=== PATIENT | female | born 1995 | race African-American/Black ===

== ENCOUNTER 2023-05-15 19:39 | Outpatient (REF) | payer OTHER, SELFPAY ==
[2023-05-21 14:09] LABS: Age Gdln ACOG Testing Note (.); IGP, rfx Aptima HPV ASCU Note (.)
== END 2023-05-15 19:40 | disposition home or self-care (01) ==
LOC: LAB 19:39
PROVIDERS: Visit Provider Physician Assistant
DX: Z01.419 Encounter for gynecological examination (general) (routine) without abnormal findings (principal)
CPT/HCPCS: G0145

== ENCOUNTER 2023-09-07 10:13 | Emergency (ER) | payer OTHER, SELFPAY ==
[2023-09-07 10:17] VITALS: BP 133/99; PULSE 104; TEMP 36.8; O2SAT 100; BMI 35.1
--- OUTSIDE RECORDS SUMMARY | 2023-09-07 10:21 | XMS_ITS | CCD ---
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 Name Role Phone Unavailable Primary Care Provider Unavailabl e Abi Gagnon Primary Care Provider Unavailable Primary Care Provider Unavailabl e Unavailable Primary Care Provider Unavailabl e MIHALIK, RENATA Referring Unavailable MIHALIK, RENATA Referring Unavailable MIHALIK, RENATA Attending Unavailable MIHALIK, RENATA Referring Unavailable MIHALIK, RENATA Referring Unavailable MIHALIK, RENATA Attending Unavailable ZUPONCIC, LA Attending Unavailable MIHALIK, RENATA Referring Unavailable MIHALIK, RENATA Attending Unavailable Kristen Simon MD Primary Care Provider [phone] MAISHA HUTCHINSON Referring Unavailable KRISTEN SIMON Primary Care Unavailable JAVY ., DR OBREGON Consulting Unavailable MISC, DR ASHRAF Primary Care Unavailable JAVY ., DR OBREGON Attending Unavailable JAVY ., DR OBREGON Admitting Unavailable ZIEBER, DR RONIT Coreas Consulting Unavailable JAVY ., DR OBREGON Consulting Unavailable MISC, DR ASHRAF Primary Care Unavailable AJVY ., DR OBREGON Attending Unavailable JAVY ., DR OBREGON Admitting Unavailable BERNARDO CASE Consulting Unavailable JAVY ., DR OBREGON Procedure Practitioner Unavail [facility], DR ELMO Pascual Consulting Unavailable MISC, DR ASHRAF Primary Care Unavailable JAVY ., DR OBREGON Attending Unavailable JAVY ., DR OBREGON Admitting Unavailable JAVY ., DR OBREGON Consulting Unavailable KARASIK ., DR LEE Consulting Unavailabl e KARASIK ., DR LEE Attending Unavailabl e KARASIK ., DR LEE Admitting Unavailabl e MISC, DR ASHRAF Primary Care Unavailable JAVY ., DR OBREGON Consulting Unavailable MISC, DR ASHRAF Primary Care Unavailable JAVY ., DR OBREGON Attending Unavailable JAVY ., DR OBREGON Admitting Unavailable JAVY ., DR OBREGON Consulting Unavailable MISC, DR ASHRAF Primary Care Unavailable JAVY ., DR OBREGON Attending Unavailable JAVY ., DR OBREGON Admitting Unavailable SOUTH AMBOY, DR ELMO Pascual Consulting Unavailable MISC, DR ASHRAF Primary Care Unavailable JAVY ., DR OBREGON Attending Unavailable JAVY ., DR OBREGON Admitting Unavailable JAVY ., DR OBREGON Consulting Unavailable JAVY ., DR OBREGON Consulting Unavailable MISC, DR ASHRAF Primary Care Unavailable JAVY ., DR OBREGON Attending Unavailable JAVY ., DR OBREGON Admitting Unavailable JAVY ., DR OBREGON Consulting Unavailable MISC, DR ASHRAF Primary Care Unavailable JAVY ., DR OBREGON Attending Unavailable JAVY ., DR OBREGON Admitting Unavailable JAVY ., DR OBREGON Consulting Unavailable MISC, DR ASHRAF Primary Care Unavailable JAVY ., DR OBREGON Attending Unavailable JAVY ., DR OBREGON Admitting Unavailable JAVY ., DR OBREGON Consulting Unavailable MISC, DR ASHRAF Primary Care Unavailable JAVY ., DR OBREGON Attending Unavailable JAVY ., DR OBREGON Admitting Unavailable JAVY ., DR OBREGON Consulting Unavailable MISC, DR ASHRAF Primary Care Unavailable JAVY ., DR OBREGON Attending Unavailable JAVY ., DR OBREGON Admitting Unavailable JAVY ., DR OBREGON Consulting Unavailable MISC, DR ASHRAF Primary Care Unavailable JAVY ., DR OBREGON Attending Unavailable JAVY ., DR OBREGON Admitting Unavailable KARASIK ., DR LEE Consulting Unavailabl e KARASIK ., DR LEE Attending Unavailabl e KARASIK ., DR LEE Admitting Unavailabl e MISC, DR ASHRAF Primary Care Unavailable KARASIK ., DR LEE Consulting Unavailabl e KARASIK ., DR LEE Attending Unavailabl e KARASIK ., DR LEE Admitting Unavailabl e MISC, DR ASHRAF Primary Care Unavailable JAVY ., DR OBREGON Consulting Unavailable MISC, DR ASHRAF Primary Care Unavailable JAVY ., DR OBREGON Attending Unavailable JAVY ., DR OBREGON Admitting Unavailable MICHAELRANDI Attending Unavailable Medications Current Medications Medication Drug Class(es) Dates Sig (Normalized) Sig (Original) clindamycin 0.01 mg/mg topical gel (1 source) Lincosamide Antibacterial Start: 04-14-2020 End: 04-21-2020 clindamycin (CLEOCIN-T) 1 % gel Indications: Hidradenitis suppurativa of right axilla Apply topically 2 times daily. 1 Bottle 1 04/14/2020 04/21/2020 Active Ethinyl Estradiol / Ferrous fumarate / Norethindrone (5 sources) Estrogen Start: 04-14-2020 take 1 tablet by mouth once daily, then take 0.05-1 tablets by mouth once norethindrone-ethi nyl estradiol (LOESTRIN FE 06/22) 1-20 MG-MCG per tablet Indications: Encounter for initial prescription of contraceptive pills Take 1 tablet by mouth daily 1 packet 12 04/14/2020 Active fluconazole 150 mg oral tablet (1 source) Azole Antifungal Start: 02-05-2020 End: 02-05-2020 take 1 tablet by mouth once fluconazole (DIFLUCAN) 150 MG tablet Take 1 tablet by mouth once for 1 dose 1 tablet 0 02/05/2020 02/05/2020 Active nitrofurantoin, macrocrystals 25 mg / nitrofurantoin, monohydrate 75 mg oral capsule (2 sources) Nitrofuran Antibacterial Start: 02-05-2020 End: 02-15-2020 take 1 capsule by mouth twice daily nitrofurantoin, macrocrystal-monoh ydrate, (MACROBID) 100 MG capsule Take 1 capsule by mouth 2 times daily for 10 days 20 capsule 0 02/05/2020 02/15/2020 Active ondansetron 4 mg oral tablet (3 sources) Serotonin-3 Receptor Antagonist Start: 08-17-2020 take 2 tablets by mouth once daily as needed for nausea ondansetron (ZOFRAN) 4 MG tablet Take 2 tablets by mouth daily as needed for Nausea or Vomiting 12 tablet 0 08/17/2020 Active Start: 08-17-2020 End: 08-17-2020 ondansetron (ZOFRAN) injecti on 4 mg phenazopyridine hydrochloride 100 mg oral tablet (2 sources) Start: 02-05-2020 End: 02-15-2020 take 1 tablet by mouth three times daily as needed for pain phenazopyridine (PYRIDIUM) 100 MG tablet Take 1 tablet by mouth 3 times daily as needed for Pain 30 tablet 0 02/05/2020 02/15/2020 Active Start: 02-05-2020 End: 02-05-2020 phenazopyridine (PYRIDIUM) t ablet 200 mg Vit-Fe Fumarate-FA ( VITAMINS) 28-0.8 MG TABS (2 sources) Start: 06-15-2020 End: 06-10-2021 take 1 tablet by mouth once daily Vit-Fe Fumarate-FA ( VITAMINS) 28-0.8 MG TABS Indications: Encounter for surveillance of contraceptive pills Take 1 tablet by mouth daily SUBSTITUTE GENERIC VITAMIN PER PT'S INSURANCE. 30 tablet 11 06/15/2020 06/10/2021 Active sodium chloride flush 0.9 % injection 3 mL (1 source) Start: 08-17-2020 sodium chlorid e flush 0.9 % injection 3 mL Completed/Discontinued Medications Medication Drug Class(es) Dates Sig (Normalized) Sig (Original) medroxyPROGESTERone acetate 10 mg oral tablet (2 sources) Progestin Start: 02-09-20 22 medroxyPROGESTERone (PROVERA) 10 mg tablet Indications: PCOS (polycystic ovarian syndrome) Take 1 tablet by mouth once daily. For 10 days to induce menses every 3 months 10 tablet 4 02/08/2022 Active Comment on above: Take 1 tablet by pennie th once daily. For 10 days to induce menses every 3 months metroNIDAZOLE 500 mg oral tablet (4 sources) Nitroimidazole Antimicrobial Start: 11-02-19 take 1 tablet by mouth twice daily metroNIDAZOLE (FLAGYL) 500 mg tablet Indications: Vulvar itching Take 1 tablet by mouth twice daily. for vaginosis. Do not drink alcohol while taking this medication 14 tablet 0 11/01/2021 Active Comment on above: Take 1 tablet by pennie th twice daily. for vaginosis. Do not drink alcohol while taking this medication 100 ml potassium chloride 0.1 meq/ml injection (2 sources) Start: 08-18-19 End: 08-18-19 potassium chloride 10 mEq/100 mL IVPB (Peripheral Line) Start: 08-17-2020 End: 08-17-2020 potassium chloride (KLOR-CON M) extended release tablet 40 mEq 50 ml sodium chloride 9 mg/m l injection (1 source) Start: 08-17-2020 End: 08-17-2020 0.9 % sodium chloride bolus Problems Active Problems Problem Classification Problem Date Documented Date Episodic/Chronic Fluid and electrolyte disorders (1 source) Hypokalemia; Translations: [Hypokalemia] Episodic Genitourinary symptoms and ill-defined conditions (1 source) Scalding pain on urination ; Translations: [Burning with urination] Episodic Menstrual disorders (7 sources) Irregular periods; Translations: [Irregular menstruation, unspecified] Onset: 08-10-2021 Chronic Nausea and vomiting (1 source) Nausea and vomiting; Translations: [Nausea and vomiting, intractability of vomiting not specified, unspecified vomiting type] Episodic OB-related trauma to perineum and vulva (1 source) Second degree perineal laceration during delivery; Translations: [SECOND DEG PERINEAL LAC DUR DELIV] Onset: 10-12-2022 Episodic Other complications of ; puerperium affecting management of mother (1 source) Endocrine, nutritional and metabolic diseases complicating childbirth; Translations: [ENDOCRN NUTR MET DZ COMP CHILDBIRTH] Onset: 10-12-2022 Episodic Other complications of (2 sources) Abnormal ultrasonic finding on screening of mother; Translations: [Abnormal ultrasonic finding on screening of mother] Onset: 07-25-2022 Episodic Other complications of (4 sources) Maternal care for other known or suspected poor growth, third trimester, not applicable or unspecified; Translations: [MAT CARE OTH MS FTL GRTH 3RD TM UNS] Onset: 10-02-2022 Episodic Other complications of (4 sources) Endocrine, nutritional and metabolic diseases complicating , third trimester; Translations: [ENDOCRN NUTR MET DZ COMP PG 3RD TRI] Onset: 09-17-2022 Episodic Other endocrine disorders (9 sources) Polycystic ovary syndrome; Translations: [Polycystic ovarian syndrome] Onset: 08-12-2021 Chronic Other endocrine disorders (1 source) Polycystic ovarian syndrome; Translations: [PCOS (polycystic ovarian syndrome)] Onset: 08-13-2021 Chronic Other infections; including parasitic (1 source) Infection by Trichomonas; Translations: [Trichomoniasis, unspecified] Episodic Other infections; including parasitic (1 source) Trichomoniasis, unspecified; Translations: [Trichomoniasis] Onset: 02-08-2022 Episodic Other inflammatory condition of skin (1 source) Pruritus of vulva; Translations: [Pruritus vulvae] Episodic Other and delivery including normal (14 sources) Single live ; Translations: [Encounter for supervision of normal , unspecified, unspecified trimester] Onset: 03-26-2022 Episodic Other screening for suspected conditions (not mental disorders or infectious disease) (6 sources) Encounter for screening for Streptococcus B; Translations: [Encounter for screening, unspecified] Onset: 04-12-2022 Episodic Residual codes; unclassified (1 source) 36 weeks gestation of ; Translations: [36 WEEKS GESTATION OF ] Onset: 10-12-2022 Episodic Residual codes; unclassified (1 source) 35 weeks gestation of ; Translations: [35 WEEKS GESTATION OF ] Onset: 09-27-2022 Episodic Residual codes; unclassified (1 source) 34 weeks gestation of ; Translations: [34 WEEKS GESTATION OF ] Onset: 09-20-2022 Episodic Thyroid disorders (1 source) Hypothyroidism, unspecified; Translations: [HYPOTHYROIDISM UNSPECIFIED] Onset: 10-12-2022 Chronic Urinary tract infections (1 source) Acute cystitis; Translations: [Acute cystitis with hematuria] Episodic Past or Other Problems Problem Classification Problem Date Documented Date Episodic/Chronic Hemorrhage during ; abruptio placenta; placenta previa (4 sources) Partial placenta previa NOS or without hemorrhage, unspecified trimester; Translations: [PART PL PREVIA NOS/WO HEMOR UNS TRI] Onset: 07-03-2022 Episodic Immunizations and screening for infectious disease (2 sources) Contact with and (suspected) exposure to infections with a predominantly sexual mode of transmission; Translations: [Encounter for screening for infections with a predominantly sexual mode of transmission] Onset: 03-09-2022 Episodic Other female genital disorders (4 sources) Other specified noninflammatory disorders of vagina; Translations: [OTH SPEC NONINFLAMMATORY D/O VAGINA] Onset: 03-08-2022 Episodic Other inflammatory condition of skin (1 source) Pruritus vulvae; Translations: [Vulvar itching] Onset: 11-01-2021 Episodic NEGATED: Highlighted row has been ruled out!Unclassified (1 source) No known active problems 10-28-2021 Results Test Name Value Interpretation Reference Range Facil ity CBC AUTO DIFFon 10-04-2022 BASO # 0.0 103/ul Normal 0.0-0.1 [facility] Comment on above: Performed By: #### H EPACUT #### [facility] [address] [place] [address] Dr. Gita Graham Basophils/100 WBC (Bld) 0.1 % Critically low 0.2-2.0 [facility] Comment on above: Performed By: #### H EPACUT #### [facility] [address] [place] [address] Dr. Gita Graham EO # 0.0 103/ul Normal 0.0-0.7 [facility] Comment on above: Performed By: #### H EPACUT #### [facility] [address] [place] [address] Dr. Gita Graham Eosinophils/100 WBC (Bld) 0.1 % Critically low 0.9-7.0 [facility] Comment on above: Performed By: #### H EPACUT #### [facility] [address] [place] [address] Dr. Gita Graham Erythrocyte distribution width (RBC) [Ratio] 13.5 % Normal 11.0-15.0 [facility] Comment on above: Performed By: #### H EPACUT #### [facility] [address] [place] [address] Dr. Gita Graham Hematocrit (Bld) [Volume fraction] 26.3 % Critically low 36.0-48.0 [facility] Comment on above: Performed By: #### H EPACUT #### [facility] [address] [place] [address] Dr. Gita Graham Hemoglobin (Bld) [Mass/Vol] 8.5 g/dL Critically low 12.0-16.0 [facility] Comment on above: Performed By: #### H EPACUT #### [facility] [address] [place] [address] Dr. Gita Graham IG # 0.21 10e3/ul Critically high 0.00-0.03 [facility] Comment on above: Performed By: #### H EPACUT #### [facility] [address] [place] [address] Dr. Gita Graham IG % 1.0 % Critically high 0.0-0.5 [facility] Comment on above: Performed By: #### H EPACUT #### [facility] [address] [address] [address] Gita Graham LYMPH # 1.8 103/ul Normal 1.2-3.8 [facility] Comment on above: Performed By: #### H EPACUT #### [facility] [address] [address] [address] Gita Graham Lymphocytes/100 WBC (Bld) 8.6 % Critically low 20.5-60.0 [facility] Comment on above: Performed By: #### H EPACUT #### [facility] [address] [place] [address] Dr. Gita Graham MANUAL DIFF REQ NO Normal [facility] Comment on above: Performed By: #### H EPACUT #### [facility] [address] [place] [address] Dr. Gita Graham MCH (RBC) [Entitic mass] 26.9 pg Normal 26.7-34.0 [facility] Comment on above: Performed By: #### H EPACUT #### [facility] [address] [place] [address] Dr. Gita Graham MCHC (RBC) [Mass/Vol] 32.3 g/dL Normal 29.9-35.2 [facility] Comment on above: Performed By: #### H EPACUT #### [facility] [address] [place] [address] Dr. Gita Graham MCV (RBC) [Entitic vol] 83.2 fL Normal 81.0-99.0 [facility] Comment on above: Performed By: #### H EPACUT #### [facility] [address] [place] [address] Dr. Gita Graham MONO # 1.5 103/ul Critically high 0.3-0.8 [facility] Comment on above: Performed By: #### H EPACUT #### [facility] [address] [place] [address] Dr. Gita Graham Monocytes/100 WBC (Bld) 7.3 % Normal 1.7-12.0 [facility] Comment on above: Performed By: #### H EPACUT #### [facility] [address] [place] [address] Dr. Gita Graham NEUT # 17.1 103/ul Critically high 1.4-6.5 [facility] Comment on above: Performed By: #### H EPACUT #### [facility] [address] [place] [address] Dr. Gita Graham Neutrophils/100 WBC (Bld) 82.9 % Critically high 43.0-75.0 [facility] Comment on above: Performed By: #### H EPACUT #### [facility] [address] [place] [address] Dr. Gita Graham Platelet mean volume (Bld) [Entitic vol] 11.0 fL Normal 9.5-13.5 [facility] Comment on above: Performed By: #### H EPACUT #### [facility] [address] [place] [address] Dr. Gita Graham PLT 175 103/ul Normal 150-450 [facility] Comment on above: Performed By: #### H EPACUT #### [facility] [address] [place] [address] Dr. Gita Graham RBC 3.16 106/ul Critically low 4.20-5.40 [facility] Comment on above: Performed By: #### H EPACUT #### [facility] [address] [place] [address] Dr. Gita Graham WBC 20.6 103/ul Critically high 4.0-11.0 [facility] Comment on above: Performed By: #### H EPACUT #### [facility] [address] [place] [address] Dr. Gita Graham DRUG SCREEN RAPID (URINE)on 10-03-2022 AMP Negative Normal NEGATIVE [facility] Comment on above: Performed By: #### D RUGRPD #### [facility] [address] [place] [address] Dr. Gita Graham BAR Negative Normal NEGATIVE [facility] Comment on above: Performed By: #### D RUGRPD #### [facility] [address] [place] [address] Dr. Gita Graham BUP Negative Normal NEGATIVE [facility] Comment on above: Performed By: #### D RUGRPD #### [facility] [address] [place] [address] Dr. Gita Graham BZO Negative Normal NEGATIVE [facility] Comment on above: Performed By: #### D RUGRPD #### [facility] [address] [place] [address] Dr. Gita Graham LATHA Negative Normal NEGATIVE [facility] Comment on above: Performed By: #### D RUGRPD #### [facility] [address] [place] [address] Dr. Gita Graham CUT-OFFS SEE BELOW Normal [facility] Comment on above: Result Comment: AMP (Amphetamine): 500ng/mL, BAR (Barbituates): 200 ng/mL, BZO (Benzodiazepines): 150 ng/mL, BUP (Buprenorphine): 10 ng/mL, LATHA (Cocaine): 150 ng/mL, mAMP (Methamphetamine): 500 ng/mL, MTD (Methadone): 200 ng/mL, OPI (Opiates): 100 ng/mL, OXY (Oxycodone): 100 ng/mL, PCP (Phencyclidine): 25 ng/mL, PPX (Propoxyphene): 300 ng/mL, THC (Cannabinoids): 50 ng/mL, TCA (Trycyclic Antidepressants): 300 ng/mL Performed By: #### D RUGRPD #### [facility] [address] [place] [address] Dr. Gita Graham DRUG CUT HEADER DRUG CLASS TEST SYST EM CUT-OFF CONCENTRATIONS ARE FOLLOWS: Normal [facility] Comment on above: Performed By: #### D RUGRPD #### [facility] [address] [place] [address] Dr. Gita Graham mAMP Negative Normal NEGATIVE [facility] Comment on above: Performed By: #### D RUGRPD #### [facility] [address] [place] [address] Dr. Gita Graham MTD Negative Normal NEGATIVE [facility] Comment on above: Performed By: #### D RUGRPD #### [facility] [address] [place] [address] Dr. Gita Graham OPI Negative Normal NEGATIVE [facility] Comment on above: Performed By: #### D RUGRPD #### [facility] [address] [place] [address] Dr. Gita Graham OXY Negative Normal NEGATIVE [facility] Comment on above: Performed By: #### D RUGRPD #### [facility] [address] [place] [address] Dr. Gita Graham PCP Negative Normal NEGATIVE [facility] Comment on above: Performed By: #### D RUGRPD #### [facility] [address] [place] [address] Dr. Gita Graham PPX Negative Normal NEGATIVE [facility] Comment on above: Performed By: #### D RUGRPD #### [facility] [address] [place] [address] Dr. Gita Graham TCA Negative Normal NEGATIVE [facility] Comment on above: Performed By: #### D RUGRPD #### [facility] [address] [place] [address] Dr. Gita Graham THC Negative Normal NEGATIVE [facility] Comment on above: Performed By: #### D RUGRPD #### [facility] [address] [place] [address] Dr. Gita Graham CBC AUTO DIFFon 10-02-2022 BASO # 0.0 103/ul Normal 0.0-0.1 [facility] Comment on above: Performed By: #### C BC #### [facility] [address] [place] [address] Dr. Gita Graham Basophils/100 WBC (Bld) 0.2 % Normal 0.2-2.0 [facility] Comment on above: Performed By: #### C BC #### [facility] [address] [place] [address] Dr. Gita Graham EO # 0.1 103/ul Normal 0.0-0.7 [facility] Comment on above: Performed By: #### C BC #### [facility] [address] [address] [address] Gita Graham Eosinophils/100 WBC (Bld) 1.2 % Normal 0.9-7.0 [facility] Comment on above: Performed By: #### C BC #### [facility] [address] [place] [address] Dr. Gita Graham Erythrocyte distribution width (RBC) [Ratio] 13.5 % Normal 11.0-15.0 [facility] Comment on above: Performed By: #### C BC #### [facility] [address] [place] [address] Dr. Gita Graham Hematocrit (Bld) [Volume fraction] 30.2 % Critically low 36.0-48.0 [facility] Comment on above: Performed By: #### C BC #### [facility] [address] [place] [address] Dr. Gita Graham Hemoglobin (Bld) [Mass/Vol] 9.7 g/dL Critically low 12.0-16.0 [facility] Comment on above: Performed By: #### C BC #### [facility] [address] [place] [address] Dr. Gita Graham IG # 0.19 10e3/ul Critically high 0.00-0.03 [facility] Comment on above: Performed By: #### C BC #### [facility] [address] [place] [address] Dr. Gita Graham IG % 1.8 % Critically high 0.0-0.5 [facility] Comment on above: Performed By: #### C BC #### [facility] [address] [place] [address] Dr. Gita Graham LYMPH # 1.5 103/ul Normal 1.2-3.8 [facility] Comment on above: Performed By: #### C BC #### [facility] [address] [place] [address] Dr. Gita Graham Lymphocytes/100 WBC (Bld) 13.5 % Critically low 20.5-60.0 [facility] Comment on above: Performed By: #### C BC #### [facility] [address] [place] [address] Dr. Gita Graham MANUAL DIFF REQ NO Normal [facility] Comment on above: Performed By: #### C BC #### [facility] [address] [place] [address] Dr. Gita Graham MCH (RBC) [Entitic mass] 26.6 pg Critically low 26.7-34.0 [facility] Comment on above: Performed By: #### C BC #### [facility] [address] [place] [address] Dr. Gita Graham MCHC (RBC) [Mass/Vol] 32.1 g/dL Normal 29.9-35.2 [facility] Comment on above: Performed By: #### C BC #### [facility] [address] [place] [address] Dr. Gita Graham MCV (RBC) [Entitic vol] 82.7 fL Normal 81.0-99.0 [facility] Comment on above: Performed By: #### C BC #### [facility] [address] [place] [address] Dr. Gita Graham MONO # 0.8 103/ul Normal 0.3-0.8 [facility] Comment on above: Performed By: #### C BC #### [facility] [address] [place] [address] Dr. Gita Graham Monocytes/100 WBC (Bld) 7.3 % Normal 1.7-12.0 [facility] Comment on above: Performed By: #### C BC #### [facility] [address] [place] [address] Dr. Gita Graham NEUT # 8.2 103/ul Critically high 1.4-6.5 [facility] Comment on above: Performed By: #### C BC #### [facility] [address] [place] [address] Dr. Gita Graham Neutrophils/100 WBC (Bld) 76.0 % Critically high 43.0-75.0 [facility] Comment on above: Performed By: #### C BC #### [facility] [address] [place] [address] Dr. Gita Graham Platelet mean volume (Bld) [Entitic vol] 10.7 fL Normal 9.5-13.5 [facility] Comment on above: Performed By: #### C BC #### [facility] [address] [place] [address] Dr. Gita Graham PLT 194 103/ul Normal 150-450 [facility] Comment on above: Performed By: #### C BC #### [facility] [address] [address] [address] Gita Graham RBC 3.65 106/ul Critically low 4.20-5.40 [facility] Comment on above: Performed By: #### C BC #### [facility] [address] [place] [address] Dr. Gita Graham WBC 10.8 103/ul Normal 4.0-11.0 [facility] Comment on above: Performed By: #### C BC #### [facility] [address] [place] [address] Dr. Gita Graham TYPE AND SCREENon 10-02-2022 TYPE AND SCREEN Negative Normal [facility] Comment on above: Performed By: #### T NS #### [facility] [address] [place] [address] Dr. Gita Graham GROUP B STREP CULTUREon 09-02 S. agalactiae Ag Ql (Unsp spec) Culture Observations: NEGATIVE FOR GROUP B STREPTOCOCCUS. Normal [facility] Comment on above: Performed By: #### H EPACUT #### [facility] [address] [place] [address] Dr. Gita Graham Coxsackie A9 Titeron 023 Coxsackie A9 Titer 1:8 Normal <1:8 [facility] Comment on above: Result Comment: (NOT E) INTERPRETIVE INFORMATION: Coxsackie A Serotype 9 Titer Single positive antibody titers of greater than 1:32 may indicate past or current infection. Seroconversion or an increase in titers between acute and convalescent sera of at least fourfold is considered strong evidence of current or recent infection. Performed By: [facility] [employer] [address] [place] [id number] Shop Tech: Johan Chen MD, PhD Performed By: #### A COXA9, APARVP #### [facility] [address] [place] [address] Ichthyology Teacher: Hussain Storey MD #### TOXOM, CMVM, TOXOG, CMVG #### [address] [id number] Ichthyology Teacher: Efrain Ramirez MD Parvovirus B19 Panelon 07-28 Parvovirus IgG B19 0.49 IV Normal <=0.90 [facility] Comment on above: Result Comment: (NOT E) INTERPRETIVE INFORMATION: Parvovirus B19 Antibody, IgG 0.90 IV or less .......... Negative - No significant level of detectable Parvovirus B19 IgG antibody. 0.91 - 1.09 IV ........... Equivocal - Repeat testing in 7-21 days may be helpful. 1.10 IV or greater ....... Positive - IgG antibody to Parvovirus B19 detected which may indicate a current or past infection. The best evidence for current infection is a significant change on two appropriately timed specimens, where both tests are done in the same laboratory at the same time. Performed By: #### A COXA9, APARVP #### [address] [address] Ichthyology Teacher: Hussain Storey MD #### TOXOM, CMVM, TOXOG, CMVG #### [address] [id number] Ichthyology Teacher: Efrain Ramirez MD Parvovirus IgM B19 0.18 IV Normal <=0.90 [facility] Comment on above: Result Comment: (NOT E) INTERPRETIVE INFORMATION: Parvovirus B19 Antibody, IgM 0.90 IV or less .......... Negative - No significant level of detectable Parvovirus B19 IgM antibody. 0.91 - 1.09 IV ........... Equivocal - Repeat testing in 7-21 days may be helpful. 1.10 IV or greater ........ Positive - IgM antibody to Parvovirus B19 detected which may indicate a current or recent infection. However, low levels of IgM antibodies may occasionally persist for more than 12 months post-infection. The best evidence for current infection is a significant change on two appropriately timed specimens, where both tests are done in the same laboratory at the same time. Appearance of an IgM antibody response normally occurs 7 to 14 days after the onset of disease. Testing immediately post-exposure is of no value without a later convalescent specimen. A residual IgM response may be distinguished from early IgM response to infection by testing sera from patients three to four weeks later for changing levels of specific IgM antibodies. Performed By: [facility] [address] [place], [place] [id number] Shop Tech: Johan Chen MD, PhD Performed By: #### A FRANCIA APARVP #### [facility] [employer] [address] [place] [address] Ichthyology Teacher: Hussain Storey MD #### TOXOM, CMVM, TOXOG, CMVG #### [facility] [place] [address] Ichthyology Teacher: Efrain Ramirez MD CMV Ab,IgMon 07-27-2022 CMV Ab,IgM 0.2 Normal <0.9 [facility] Comment on above: Result Comment: Reference Range: <0.9 Non Reactive 0.9 to 1.0 Indeterminate >1.0 Reactive The absence of CMV antibodies suggests that the patient has not been exposed to the virus and is susceptible to primary infection. The presence of CMV IgM antibodies is indicative of recent exposure to the virus. These results are not intended to replace virus isolation and should be interpreted within the context of clinical and other findings. Performed By: #### A COXA9, APARVP #### [facility] [employer] [address] [place] [id number] Ichthyology Teacher: Hussain Storey MD #### TOXOM, CMVM, TOXOG, CMVG #### [id number] [place] [address] Ichthyology Teacher: Efrain Ramirez MD CMV Ab,IgGon 07-26-2022 CMV Ab,IgG 4.3 High <0.9 [facility] Comment on above: Result Comment: Reference Range: <0.9 Non Reactive 0.9 to 1.0 Indeterminate >1.0 Reactive The absence of CMV antibodies suggests that the patient has not been exposed to the virus and is susceptible to primary infection. The presence of CMV IgG antibodies is indicative of previous exposure to the virus, but cannot distinguish between active or past infection. Patients suspected of having primary or active infection should be tested for the concurrent presence of CMV IgM antibodies and/or retested for seroconversion in 3 to 4 weeks. These results are not intended to replace virus isolation and should be interpreted within the context of clinical and other findings. Performed By: #### A FRANCIA APARVP #### [facility] [address] [place], [place] [id number] Ichthyology Teacher: Hussain Storey MD #### TOXOM, CMVM, TOXOG, CMVG #### [address] [address] Ichthyology Teacher: Efrain Ramirez MD Toxoplasma Ab,IgGon 07-26-19 Toxoplasma Ab,IgG <0.5 Normal [facility] Comment on above: Result Comment: REFERENCE RANGE: <6.3 NON-REACTIVE 6.4 TO 9.9 EQUIVOCAL >=10.0 REACTIVE THE PRESENCE OF TOXOPLASMA GONDII IgG ANTIBODIES IS INDICATIVE OF EXPOSURE TO THE PROTOZOAN. THE ABSENCE OF TOXOPLASMA IgG ANTIBODIES SUGGESTS THAT THE PATIENT HAS NOT BEEN EXPOSED TO THIS ORGANISM AND IS SUSCEPTIBLE TO PRIMARY INFECTION. DETERMINATION OF PRIMARY OR RECENT INFECTION REQUIRES DEMONSTRATING SEROCONVERSION BETWEEN ACUTE AND CONVALESCENT SERA. Performed By: #### A COXA9, APARVP #### [facility] [address] [place] [address] Ichthyology Teacher: Hussain Storey MD #### TOXOM, CMVM, TOXOG, CMVG #### [address] [address] Ichthyology Teacher: Efrain Ramirez MD Toxoplasma Ab,IgMon 07-26-19 Toxoplasma Ab,IgM 0.58 Index Normal [facility] Comment on above: Result Comment: REFERENCE RANGE: <0.90 NON-REACTIVE 0.90 TO 0.99 INDETERMINANT >=1.00 REACTIVE Performed By: #### A COXA9, APARVP #### [facility] [address] [place] [address] Ichthyology Teacher: Hussain Storey MD #### TOXOM, CMVM, TOXOG, CMVG #### [id number] [place] [address] Ichthyology Teacher: Efrain Ramirez MD CBC AUTO DIFFon 07-21-2022 BASO # 0.0 103/ul Normal 0.0-0.1 [facility] Comment on above: Performed By: #### H CVPCRR #### [facility] [address] [place] [address] Dr. Gita Graham Basophils/100 WBC (Bld) 0.4 % Normal 0.2-2.0 [facility] Comment on above: Performed By: #### H CVPCRR #### [facility] [address] [place] [address] Dr. Gita Graham EO # 0.1 103/ul Normal 0.0-0.7 [facility] Comment on above: Performed By: #### H CVPCRR #### [facility] [address] [place] [address] Dr. Gita Graham Eosinophils/100 WBC (Bld) 0.8 % Critically low 0.9-7.0 [facility] Comment on above: Performed By: #### H CVPCRR #### [facility] [address] [place] [address] Dr. Gita Graham Erythrocyte distribution width (RBC) [Ratio] 13.6 % Normal 11.0-15.0 [facility] Comment on above: Performed By: #### H CVPCRR #### [facility] [address] [place] [address] Dr. Gita Graham Hematocrit (Bld) [Volume fraction] 32.4 % Critically low 36.0-48.0 [facility] Comment on above: Performed By: #### H CVPCRR #### [facility] [address] [place] [address] Dr. Gita Graham Hemoglobin (Bld) [Mass/Vol] 10.7 g/dL Critically low 12.0-16.0 [facility] Comment on above: Performed By: #### H CVPCRR #### [facility] [address] [place] [address] Dr. Gita Graham IG # 0.09 10e3/ul Critically high 0.00-0.03 [facility] Comment on above: Performed By: #### H CVPCRR #### [facility] [address] [place] [address] Dr. Gita Graham IG % 0.8 % Critically high 0.0-0.5 [facility] Comment on above: Performed By: #### H CVPCRR #### [facility] [address] [place] [address] Dr. Gita Graham LYMPH # 1.4 103/ul Normal 1.2-3.8 [facility] Comment on above: Performed By: #### H CVPCRR #### [facility] [address] [place] [address] Dr. Gita Graham Lymphocytes/100 WBC (Bld) 12.9 % Critically low 20.5-60.0 [facility] Comment on above: Performed By: #### H CVPCRR #### [facility] [address] [place] [address] Dr. Gita Graham MANUAL DIFF REQ NO Normal [facility] Comment on above: Performed By: #### H CVPCRR #### [facility] [address] [place] [address] Dr. Gita Graham MCH (RBC) [Entitic mass] 28.0 pg Normal 26.7-34.0 [facility] Comment on above: Performed By: #### H CVPCRR #### [facility] [address] [address] [address] Gita Graham MCHC (RBC) [Mass/Vol] 33.0 g/dL Normal 29.9-35.2 [facility] Comment on above: Performed By: #### H CVPCRR #### [facility] [address] [place] [address] Dr. Gita Graham MCV (RBC) [Entitic vol] 84.8 fL Normal 81.0-99.0 [facility] Comment on above: Performed By: #### H CVPCRR #### [facility] [address] [place] [address] Dr. Gita Graham MONO # 0.7 103/ul Normal 0.3-0.8 [facility] Comment on above: Performed By: #### H CVPCRR #### [facility] [address] [place] [address] Dr. Gita Graham Monocytes/100 WBC (Bld) 6.0 % Normal 1.7-12.0 [facility] Comment on above: Performed By: #### H CVPCRR #### [facility] [address] [place] [address] Dr. Gita Graham NEUT # 8.5 103/ul Critically high 1.4-6.5 [facility] Comment on above: Performed By: #### H CVPCRR #### [facility] [address] [place] [address] Dr. Gita Graham Neutrophils/100 WBC (Bld) 79.1 % Critically high 43.0-75.0 [facility] Comment on above: Performed By: #### H CVPCRR #### [facility] [address] [place] [address] Dr. Gita Graham Platelet mean volume (Bld) [Entitic vol] 10.3 fL Normal 9.5-13.5 [facility] Comment on above: Performed By: #### H CVPCRR #### [facility] [address] [place] [address] Dr. Gita Graham PLT 210 103/ul Normal 150-450 [facility] Comment on above: Performed By: #### H CVPCRR #### [facility] [address] [address] [address] Gita Graham RBC 3.82 106/ul Critically low 4.20-5.40 [facility] Comment on above: Performed By: #### H CVPCRR #### [facility] [address] [address] [address] Gita Graham WBC 10.8 103/ul Normal 4.0-11.0 [facility] Comment on above: Performed By: #### H CVPCRR #### [facility] [address] [address] [address] Gita Graham GLUCOSE - 1HRon 07-21-2022 Glucose [Mass/Vol] 114 mg/dL Critically high 74-106 T [facility] Comment on above: Performed By: #### H CVPCRR #### [facility] [address] [place] [address] Dr. Gita Graham US PREG PLACENTAon US PREG PLACENTA EXAMINATION: US PREG PLACENTA HISTORY: Placenta previa partialis COMPARISON: 06/05/2022 FINDINGS: position: Cephalic presentation, longitudinal lie Placenta: Anterior. No intraplacental or retroplacental echogenic abnormality. The placental edge is 4.6 cm from the internal os Heart rate: 142 bpm Cervix: 4.8 cm, closed IMPRESSION: Placental edge 4.6 cm from the internal os. Electronically authenticated by: ELMO GOETZ Date: 2022-07-03 11:05 Normal [facility] US PREG ANATOMY SINGLEon US PREG ANATOMY SINGLE EXAMINATION: US PREG ANATOMY SINGLE HISTORY: anatomy study COMPARISON: No relevant comparison available. TECHNIQUE: Transabdominal sonographic examination was performed for obstetrical and evaluation. FINDINGS: Number: 1 Heart Rate: 144.0 bpm H.B. /min Amniotic Fluid Volume: Subjectively normal Placental Location: POSTERIOR with lower margin 0.4 cm from os. Cervix Length: 4.2 cm , closed. ANATOMY: Normal Structures -cerebellum, choroid plexus, cisterna magna, lateral cerebral ventricles, orbits, midline falx, hard palate, four-chamber heart, RVOT, LVOT, stomach, kidneys, bladder, umbilical cord insertion into abdomen, three-vessel cord, cervical spine, thoracic spine, lumbar spine, sacral spine, right upper extremity, left upper extremity, right lower extremity, left lower extremity. SUBOPTIMALLY SEEN: None ABNORMALITIES: None BIOMETRY: BPD: 4.4 cm 19 weeks 3 days HC: 16.3 cm 19 weeks 0 days AC: 14.6 cm 19 weeks 6 days FL: 3.3 cm 20 weeks 3 days EFW:325.4 grams; 53% FL/AC: 22.8 FL/BPD: 74.9 HC/AC: 1.1 GESTATIONAL AGE: Age by EDC: 19 weeks 6 days SUJEY by EDC: 10/24/2022 Age by current US: 19 weeks 5 days SUJEY by current US: 10/25/2022 IMPRESSION: 1. Single live intrauterine with growth detailed above. 2. Posterior low-lying placenta. Electronically authenticated by: RONIT MILLER Date: 2022-06-05 16:18 Normal [facility] AFP MATERNAL FOR SPINA BIFID Aon 05-31-2022 AFP MoM 1.10 Normal [facility] Comment on above: Performed By: #### A FPMAT #### [facility] [address] [address] [address] Gita Graham AFP Value 49.6 ng/mL Normal [facility] Comment on above: Performed By: #### A FPMAT #### [facility] [address] [address] [address] Gita Graham AFP, Serum for Spina Bifida Report Normal [facility] Comment on above: Performed By: #### A FPMAT #### [facility] [address] [address] [address] Gita Graham Comment Comment Normal [facility] Comment on above: Result Comment: Paul Shook, Ph.D., [facility] Director . References: Available Upon Request. . Multiples Of Median Cutoffs For AFP Elevations Steen 2.5 Black 2.8 IDD 2.0 Twins 4.5 Abbreviation Definitions IDD - Insulin Dep Diabetes OSBR - Open Spina Bifida Risk . For further inquiries contact [employer] at [phone]. . This test was developed and its performance characteristics determined by [employer]. It has not been cleared or approved by the Food and Drug Administration. Performed By: #### A FPMAT #### [facility] [address] [address] [address] Gita Graham Gest Age Collection Date 18.7 weeks Normal [facility] Comment on above: Performed By: #### A FPMAT #### [facility] [address] [place] [address] Dr. Gita Graham Gestat, Age Based on SUJEY Normal [facility] Comment on above: Result Comment: 10/02 Recalculations are not recommended when gestational dating by LMP and ultrasound are within 10 days. Performed By: #### A FPMAT #### [facility] [address] [place] [address] Dr. Gita Graham Insulin Dep Diabetes No Normal [facility] Comment on above: Performed By: #### A FPMAT #### [facility] [address] [place] [address] Dr. Gita Graham Interpretation Comment Normal [facility] Comment on above: Result Comment: Inte rpretation: Screen Negative . This result is screen negative for OSB. The AFP MoM calculated is based on the gestational age provided. MS-AFP can identify up to 80% of open neural tube defects. Closed neural tube defects and some open defects may not be detected by this test. This test does not screen for Down Syndrome or Trisomy 18. If screening for Down Syndrome or Trisomy 18 is desired, contact [employer] to discuss available options. The [place] [employer] recommends amniocentesis be offered to women age 35 and older. Performed By: #### A FPMAT #### [facility] [address] [place] [address] Dr. Gita Graham [age] Normal [facility] Comment on above: Performed By: #### A FPMAT #### [facility] [address] [place] [address] Dr. Gita Graham Multiple Gestation No Normal [facility] Comment on above: Performed By: #### A FPMAT #### [facility] [address] [place] [address] Dr. Gita Graham OSBR Risk 1 [place] 8933 Normal [facility] Comment on above: Performed By: #### A FPMAT #### [facility] [address] [place] [address] Dr. Gita Graham PDF . Normal [facility] Comment on above: Performed By: #### A FPMAT #### [facility] [address] [place] [address] Dr. Gita Graham Race Normal [facility] Comment on above: Performed By: #### A FPMAT #### [facility] [address] [place] [address] Dr. Gita Graham Test Results: Negative [facility] Comment on above: Performed By: #### A FPMAT #### [facility] [address] [place] [address] Dr. Gita Graham HEP B SURFACE ANTIGEN SCREEN on 04-08-2022 HBsAg Screen Negative Normal Negative [facility] Comment on above: Performed By: #### H CVPCRR #### [facility] [address] [place] [address] Dr. Gita Graham HEPATITIS C VIRUS AB W/ REFL EX QUANTon 04-08-2022 HCV AB <0.1 Normal 0.0-0.9 [facility] Comment on above: Performed By: #### H CVPCRR #### [facility] [address] [place] [address] Dr. Gita Graham Interpretation: Comment Normal [facility] Comment on above: Result Comment: Nega tive Not infected with HCV, unless recent infection is suspected or other evidence exists to indicate HCV infection. Performed By: #### H CVPCRR #### [facility] [address] [place] [address] Dr. Gita Graham HIV 1 AND 2 WITH REFLEXon HIV Screen 4th Generation wRfx Non-Reactive Normal Non Reactive [facility] Comment on above: Result Comment: HIV Negative HIV-1/HIV-2 antibodies and HIV-1 p24 antigen were NOT detected. There is no laboratory evidence of HIV infection. Performed By: #### H EPACUT #### [facility] [address] [place] [address] Dr. Gita Graham RPR QUANTon 04-08-2022 Rapid Plasma Reagin, Quant Non-Reactive Normal NonRea<1:1 [facility] Comment on above: Result Comment: Jill bran Note: This test does not meet current guidelines for screening and diagnosis of syphilis. This test is intended for following treatment response in patients being treated for syphilis infection. To screen for syphilis infection, a reflex cascade that includes both RPR and a treponema-specific assay should be utilized, such as Treponema pallidum (Syphilis) Screening [place] (919609) or Rapid Plasma Reagin (RPR) Test With Reflex to Quantitative RPR and Confirmatory Treponema pallidum Antibodies (060775). Performed By: #### H CVPCRR #### [facility] [address] [place] [address] Dr. Gita Graham RUBELLA AB IGGon 04-08-2022 Rubella Antibodies, IgG 4.62 index Normal Immune >0.99 [facility] Comment on above: Result Comment: Non- immune <0.90 Equivocal 0.90 - 0.99 Immune >0.99 Performed By: #### H EPACUT #### [facility] [address] [place] [address] Dr. Gita Graham CBC AUTO DIFFon 04-07-2022 BASO # 0.0 103/ul Normal 0.0-0.1 [facility] Comment on above: Performed By: #### H CVPCRR #### [facility] [address] [place] [address] Dr. Gita Graham Basophils/100 WBC (Bld) 0.4 % Normal 0.2-2.0 [facility] Comment on above: Performed By: #### H CVPCRR #### [facility] [facility] [address] [place] [address] Dr. Gita Graham EO # 0.0 103/ul Normal 0.0-0.7 [facility] Comment on above: Performed By: #### H CVPCRR #### [facility] [address] [place] [address] Dr. Gita Graham Eosinophils/100 WBC (Bld) 0.8 % Critically low 0.9-7.0 [facility] Comment on above: Performed By: #### H CVPCRR #### [facility] [address] [place] [address] Dr. Gita Graham Erythrocyte distribution width (RBC) [Ratio] 13.0 % Normal 11.0-15.0 [facility] Comment on above: Performed By: #### H CVPCRR #### [facility] [address] [place] [address] Dr. Gita Graham Hematocrit (Bld) [Volume fraction] 39.1 % Normal 36.0-48.0 [facility] Comment on above: Performed By: #### H CVPCRR #### [facility] [address] [place] [address] Dr. Gita Graham Hemoglobin (Bld) [Mass/Vol] 13.1 g/dL Normal 12.0-16.0 [facility] Comment on above: Performed By: #### H CVPCRR #### [facility] [address] [place] [address] Dr. Gita Graham IG # 0.01 10e3/ul Normal 0.00-0.03 [facility] Comment on above: Performed By: #### H CVPCRR #### [facility] [address] [place] [address] Dr. Gita Graham IG % 0.2 % Normal 0.0-0.5 [facility] Comment on above: Performed By: #### H CVPCRR #### [facility] [address] [place] [address] Dr. Gita Graham LYMPH # 1.3 103/ul Normal 1.2-3.8 [facility] Comment on above: Performed By: #### H CVPCRR #### [facility] [address] [place] [address] Dr. Gita Graham Lymphocytes/100 WBC (Bld) 25.0 % Normal 20.5-60.0 [facility] Comment on above: Performed By: #### H CVPCRR #### [facility] [address] [place] [address] Dr. Gita Graham MANUAL DIFF REQ NO Normal [facility] Comment on above: Performed By: #### H CVPCRR #### [facility] [address] [place] [address] Dr. Gita Graham MCH (RBC) [Entitic mass] 27.6 pg Normal 26.7-34.0 [facility] Comment on above: Performed By: #### H CVPCRR #### [facility] [address] [place] [address] Dr. Gita Graham MCHC (RBC) [Mass/Vol] 33.5 g/dL Normal 29.9-35.2 [facility] Comment on above: Performed By: #### H CVPCRR #### [facility] [address] [place] [address] Dr. Gita Graham MCV (RBC) [Entitic vol] 82.5 fL Normal 81.0-99.0 [facility] Comment on above: Performed By: #### H CVPCRR #### [facility] [address] [place] [address] Dr. Gita Graham MONO # 0.2 103/ul Critically low 0.3-0.8 [facility] Comment on above: Performed By: #### H CVPCRR #### [facility] [address] [place] [address] Dr. Gita Graham Monocytes/100 WBC (Bld) 3.7 % Normal 1.7-12.0 [facility] Comment on above: Performed By: #### H CVPCRR #### [facility] [address] [place] [address] Dr. Gita Graham NEUT # 3.6 103/ul Normal 1.4-6.5 [facility] Comment on above: Performed By: #### H CVPCRR #### [facility] [address] [place] [address] Dr. Gita Graham Neutrophils/100 WBC (Bld) 69.9 % Normal 43.0-75.0 [facility] Comment on above: Performed By: #### H CVPCRR #### [facility] [address] [address] [address] Gita Graham Platelet mean volume (Bld) [Entitic vol] 10.4 fL Normal 9.5-13.5 [facility] Comment on above: Performed By: #### H CVPCRR #### [facility] [address] [place] [address] Dr. Gita Graham PLT 211 103/ul Normal 150-450 [facility] Comment on above: Performed By: #### H CVPCRR #### [facility] [address] [address] [address] Gita Graham RBC 4.74 106/ul Normal 4.20-5.40 [facility] Comment on above: Performed By: #### H CVPCRR #### [facility] [address] [place] [address] Dr. Gita Graham WBC 5.2 103/ul Normal 4.0-11.0 [facility] Comment on above: Performed By: #### H CVPCRR #### [facility] [address] [place] [address] Dr. Gita Graham CULTURE URINEon 04-07-2022 CULTURE URINE Culture Observations : NO GROWTH. Normal [facility] Comment on above: Performed By: #### U RCX #### [facility] [address] [place] [address] Dr. Gita Graham GLYCOHEMOGLOBIN A1Con 2021 ADA RECOMMENDATION SEE BELOW Normal [facility] Comment on above: Result Comment: ADA RECOMMENDED LIMIT 4.0 - 6.0 ADA THERAPEUTIC TARGET < 7.0 ACTION SUGGESTED > 7.0 Performed By: #### H CVPCRR #### [facility] [address] [place] [address] Dr. Gita Graham Glucose [Mass/Vol] 105 mg/dL Normal [facility] Comment on above: Performed By: #### H CVPCRR #### [facility] [address] [place] [address] Dr. Gita Graham HbA1c (Bld) [Mass fraction] 5.3 % Normal 4.5-6.2 [facility] Comment on above: Performed By: #### H CVPCRR #### [facility] [address] [place] [address] Dr. Gita Graham KAILASH BOX TEST PT SEND OUTo n 04-07-2022 SENT TO REF LAB 04/07/2022 Normal [facility] Comment on above: Performed By: #### H CVPCRR #### [facility] [address] [place] [address] Dr. Gita Graham TYPE AND SCREENon 04-07-2022 TYPE AND SCREEN Negative Normal [facility] Comment on above: Performed By: #### H EPACUT #### [facility] [address] [place] [address] Dr. Gita Graham US PREG TVon 03-22-2022 US PREG TV EXAMINATION: US PREG TV HISTORY: Irregular periods COMPARISON: No relevant comparison available. FINDINGS: Steen intrauterine gestation Gestational sac: 3.3 cm, 8 weeks 2 days CRL: 2.0 cm, 8 weeks 4 days Yolk sac: 3.7 mm Heart rate: 175 bpm Cervix: Closed, 4.1 cm Uterus is normal in appearance, anteverted The ovaries are normal in appearance. Clinical age: 9 weeks 1 day Clinical SUJEY: 10/24/2022 Ultrasound age: 8 weeks 3 days Ultrasound SUJEY: 10/29/2022 IMPRESSION: Viable steen intrauterine gestation measuring 8 weeks 3 days Electronically authenticated by: ELMO GOETZ Date: 2022-03-22 16:47 Normal [facility] CHLAMYDIA/GONOCOCCUS PADMINI (SW AB/URINE/PAPon 03-12-2022 Chlamydia trachomatis, PADMINI Negative Normal Negative [facility] Comment on above: Performed By: #### C T/NGNA #### [facility] [address] [place] [address] Dr. Gita Graham Neisseria gonorrhoeae, PADMINI Negative Normal Negative [facility] Comment on above: Performed By: #### C T/NGNA #### [facility] [address] [place] [address] Dr. Gita Graham VAGINITIS/VAGINOSIS DNA PROB Isaias 03-11-2022 Crystal species Negative Normal Negative [facility] Comment on above: Performed By: #### H CVPCRR #### [facility] [address] [place] [address] Dr. Gita Graham Gardnerella vaginalis Positive Abnormal Negative [facility] Comment on above: Performed By: #### H CVPCRR #### [facility] [address] [place] [address] Dr. Gita Graham Trichomonas vaginalis Negative Normal Negative [facility] Comment on above: Performed By: #### H CVPCRR #### [facility] [address] [place] [address] Dr. Gita Graham HEPATITIS PANEL, ACUTEon HBsAg Screen Negative Normal Negative [facility] Comment on above: Performed By: #### H EPACUT #### [facility] [address] [place] [address] Dr. Gita Graham HCV AB <0.1 Normal 0.0-0.9 [facility] Comment on above: Performed By: #### H EPACUT #### [facility] [address] [place] [address] Dr. Gita Graham Hep A Ab, IgM Negative Normal Negative [facility] Comment on above: Performed By: #### H EPACUT #### [facility] [address] [place] [address] Dr. Gita Graham Hep B Core Ab, IgM Negative Normal Negative [facility] Comment on above: Performed By: #### H EPACUT #### [facility] [address] [place] [address] Dr. Giat Graham Interpretation: Comment Normal [facility] Comment on above: Result Comment: Nega tive Not infected with HCV, unless recent infection is suspected or other evidence exists to indicate HCV infection. Performed By: #### H EPACUT #### [facility] [address] [place] [address] Dr. Gita Graham HERPES SIMPLEX 1/2 IGGon HSV 1 IgG, Type Spec <0.91 Normal 0.00-0.90 [facility] Comment on above: Result Comment: Nega tive <0.91 Equivocal 0.91 - 1.09 Positive >1.09 Note: Negative indicates no antibodies detected to HSV-1. Equivocal may suggest early infection. If clinically appropriate, retest at later date. Positive indicates antibodies detected to HSV-1. Performed By: #### H SV IGG #### [facility] [address] [place] [address] Dr. Gita Graham HSV 2 IgG Type Spec 8.69 index Critically high 0.00-0.90 [facility] Comment on above: Result Comment: Nega tive <0.91 Equivocal 0.91 - 1.09 Positive >1.09 Note: Negative indicates no HSV-2 antibodies detected. Positive indicates HSV-2 antibodies detected. Equivocal and low positive HSV-2 screens (Index 0.91-5.00) may be false positive and are reflexed to supplemental testing in accordance with CDC guidelines. Performed By: #### H SV IGG #### [facility] [address] [place] [address] Dr. Gita Graham HIV 1 AND 2 WITH REFLEXon HIV Screen 4th Generation wRfx Non-Reactive Normal Non Reactive [facility] Comment on above: Result Comment: HIV Negative HIV-1/HIV-2 antibodies and HIV-1 p24 antigen were NOT detected. There is no laboratory evidence of HIV infection. Performed By: #### H IV12 #### [facility] [address] [place] [address] Dr. Gita Graham RPR QUANTon 03-09-2022 Rapid Plasma Reagin, Quant Non-Reactive Normal NonRea<1:1 [facility] Comment on above: Result Comment: Plea se Note: This test does not meet current guidelines for screening and diagnosis of syphilis. This test is intended for following treatment response in patients being treated for syphilis infection. To screen for syphilis infection, a reflex cascade that includes both RPR and a treponema-specific assay should be utilized, such as Treponema pallidum (Syphilis) Screening [place] (350952) or Rapid Plasma Reagin (RPR) Test With Reflex to Quantitative RPR and Confirmatory Treponema pallidum Antibodies (348119). Performed By: #### H EPACUT #### [facility] [address] [place] [address] Dr. Gita Graham PREG QUANT HCGon 03-08-2022 HCG QUANT 15925 mIU/mL Normal [facility] Comment on above: Performed By: #### H EPACUT #### [facility] [address] [address] [address] Gita Graham HCG RANGE SEE BELOW Normal [facility] Comment on above: Result Comment: 5-50 0.2-1 WEEK 50-500 1-2 WEEKS 100-5,000 2-3 WEEKS 500-10,000 3-4 WEEKS 1,000-50,000 4-5 WEEKS 10,000-100,000 5-6 WEEKS 15,000-200,000 6-8 WEEKS 10,000-100,000 2-3 MONTHS Performed By: #### H EPACUT #### [facility] [address] [place] [address] Dr. Gita Graham B-HCG SerPl-[facility] [place] 2 [place] [address].0 m[IU]/mL High <5.0 [facility] Comment on above: Order Comment: Speci men Type: BLOOD SPECIMENOrdering Facility: [facility] Address: [address] [place] [phone] Result Comment: OTTO TITATIVE HCG NORMAL RANGES Weeks of Gestation (Weeks Since LMP) 3 Weeks (5.8-71.2 mIU/mL) 4 Weeks (9.5-750 mIU/mL) 5 Weeks (217-7138 mIU/mL) 6 Weeks (158-40360 mIU/mL) 7 Weeks (3697-228241 mIU/mL) 8 Weeks (39129-253996 mIU/mL) 9 Weeks (39161-247213 mIU/mL) 10 Weeks (56191-151257 mIU/mL) 12 Weeks (84814-151898 mIU/mL) [facility] Performed By: #### 2 1198-7 ####[facility] LABORATORYCLIA [id number] [address] STATES OF [facility] CNPAnne-Marie 03-01-2022 CNPN Telephone (OBGWMA) ----- BRIANNE SMITH ([id number]) 1995 F Date Time Provider Department 03/01/22 RENATA CLANCY During your visit today, we recorded the following information about you: Poly Stapleton RN 03/01/2022 12:57 PM Signed Aware of results and transferred to [facility]. Poly Stapleton RN HC,031 (6-7 wk) LMP:8.17.2021 Allergies As of Date: 03/01/2022 (No Known Allergies) Date Reviewed: 02/10/2022 Reviewed by: Renata Clancy DO - Fully Assessed Reason for Visit: Results [95] Appointment [186] Prescriptions as of 03/01/2022 - medroxyPROGESTERone (PROVERA) 10 mg tablet Take 1 tablet by mouth once daily. For 10 days to induce menses every 3 months - metroNIDAZOLE (FLAGYL) 500 mg tablet Take 1 tablet by mouth twice daily. for vaginosis. Do not drink alcohol while taking this medication Problem List As Of Date 03/01/2022 Noted Resolved PCOS (polycystic ovarian syndrome) [E28.2] 08/12/2021 Encounter Status:Closed by POLY STAPLETON on 03/01/22 [facility] TYPE + SCREENon 03-01-2022 ABO A Normal [facility] Comment on above: Order Comment: Speci men Type: BLOOD SPECIMENOrdering Facility: [facility] Address: [address] [place] [address] Performed By: #### T SCR ####[facility] BLOOD BANKCLIA [id number] [address] OF [facility] HISTORICAL AB SCR STATUS Negative Normal [facility] Comment on above: Order Comment: Speci men Type: BLOOD SPECIMENOrdering Facility: [facility] Address: [address] [address] Performed By: #### T SCR ####[facility] BLOOD BANKCLIA [id number] [place] [id number] [facility] Rh Nom (Bld) Positive Normal [facility] Comment on above: Order Comment: Speci men Type: BLOOD SPECIMENOrdering Facility: [facility] Address: [address] [place] [address] Performed By: #### T SCR ####[facility] BLOOD BANKIA [id number] [address] TYPE AND SCREEN EXPIRATION 03/04/2022 23:59 Normal [facility] Comment on above: Order Comment: Speci men Type: BLOOD SPECIMENOrdering Facility: [facility] Address: [address] [place] [address] Performed By: #### T SCR ####[facility] BLOOD BANKIA [id number] [address] CNPNon 02-26-2022 CNPN Telephone (OBGWMA) ----- KERI SMITHA ([id number]) 1995 F Date Time Provider Department 02/26/22 RENATA CLANCY During your visit today, we recorded the following information about you: Poly Stapleton RN 02/26/2022 2:24 PM Signed Pos HT. LMP:8.10. HCG and TANDS pended. Poly Stapleton RN Allergies As of Date: 02/26/2022 (No Known Allergies) Date Reviewed: 02/10/2022 Reviewed by: DO Anibal Li Fully Assessed Reason for Visit: Orders [681] Primary Visit Diagnosis:Secondary amenorrhea [N91.1] Order(s):HCG QUANTITATIVE [SQHCGQT] Order #: [id number] FUTURE TYPE + SCREEN [SQTSCR] Order #: [id number] FUTURE Prescriptions as of 02/26/2022 - medroxyPROGESTERone (PROVERA) 10 mg tablet Take 1 tablet by mouth once daily. For 10 days to induce menses every 3 months - metroNIDAZOLE (FLAGYL) 500 mg tablet Take 1 tablet by mouth twice daily. for vaginosis. Do not drink alcohol while taking this medication Problem List As Of Date 02/26/2022 Noted Resolved PCOS (polycystic ovarian syndrome) [E28.2] 08/12/2021 Encounter Status:Closed by RENATA CLANCY on 02/26/22 [facility] CNCOon 02-08-[address] [facility] CNOVon 02-08-2022 CNOV Office Visit (OBGWMA ) ----- BRIANNE SMITH ([id number]) 1995 F Date Time Provider Department 02/08/22 10:45 AM RENATA CLANCYGJAMILAH During your visit today, we recorded the following information about you: Blood pressure Weight Height Last Period 122/80 79.4 kg 1.549 m 12/14/21 Renata Clancy DO 02/10/2022 9:39 AM Signed SERVICE DATE: 02/08/2022 SERVICE TIME: 11:22 AM Subjective CHIEF COMPLAINT: PCOS 6 month f/u HPI: This is a 26 year old female who presents with PCOS 6 month f/u. Patient's last menstrual period was 12/14/2021 (exact date). Bled for 5 days. Itching resolved after treatment of her and her partner for Trichomoniasis. Most recent test 5 days after period was suppose to start was negative. Taken on 01/22/2022. Still would like to conceive. Ideally, in 1-2 years. Does not desire right now. Reports she is having unprotected intercourse for 2 years. Partner has never completed semen analysis. Denies unwanted hair growth. Does not want to be on control. PAST MEDICAL HISTORY Diagnosis Date Herpes simplex type 2 infection PAST SURGICAL HISTORY Procedure Laterality Date NONE No family history on file. Social History Tobacco Use Smoking status: Never Smokeless tobacco: Never (Not in a hospital admission) ALLERGIES No Known Allergies COMPLETE REVIEW OF SYSTEMS: PAIN ASSESSMENT: Negative for pain, history of chronic pain, or current treatment for a chronic pain condition. GENERAL: No weight loss, malaise or fevers HEENT: Negative for frequent or significant headaches, No changes in hearing or vision, no nose bleeds or other nasal problems NECK: Negative for lumps, goiter, pain and significant neck swelling RESPIRATORY: Negative for cough, hemoptysis, wheezing, COPD, dyspnea or shortness of breath CARDIOVASCULAR: Negative for chest pain, leg swelling, hypertension, CHF or palpitations GI: No nausea, vomiting, or diarrhea SENSOR SPECIALIST: Positive for oligomenorrhea. Negative for abnormal vaginal discharge MUSCULOSKELETAL: Negative for joint pain or swelling, back pain or muscle pain PSYCH: Negative for sleep disturbance, mood disorder and recent psychosocial stressors HEMATOLOGY/LYMPHOLOGY: Negative for prolonged bleeding, bruising easily or swollen nodes ENDOCRINE: Negative for cold or heat intolerance, polyuria, polydipsia and goiter Objective PHYSICAL EXAM: BP 122/80 Ht 5' 1 (1.549 m) Wt 175 lb (79.4 kg) LMP 12/14/2021 (Exact Date) BMI 33.07 kg/m? Physical Exam Performed: GENERAL: Alert, no distress, cooperative SKIN: Skin color, texture, turgor normal. No rashes or lesions. HEAD/SINUSES: No significant findings EYES: PERRLA, EOMI NOSE: Wears mask NECK: Supple BACK: Back symmetric, Normal curvature, ROM normal, No CVAT. LUNGS: Lungs clear to auscultation, Good diaphragmatic excursion CARDIAC: Normal S1 and S2; No murmurs. ABDOMEN: Abdomen soft, non-tender, BS normal, No masses or organomegaly EXTREMITIES: Extremities normal, no deformities, edema, clubbing or skin discoloration. Good capillary refill., No ulcers ASSESSMENT/PLAN: 1. PCOS (polycystic ovarian syndrome) - ICD9: 256.4, ICD10: E28.2 (primary diagnosis) - Meets PCOS criteria based on oligomenorrhea and polycystic appearing ovaries. - Does not want to be on control. LMP 12/14/2021. Still would like to conceive in 1-2 years. - Ordered Provera today to induce menses as the patient is missing more than 3 periods in a year and she does not want contraception. - Advised pt to discuss possible semen analysis with partner. - HCG QUAL UR B/O - MEDROXYPROGESTERONE 10 MG TABLET 2. Trichomoniasis - ICD9: 131.9, ICD10: A59.9 - Symptoms resolved. Completed treatment. - T VAGINALIS AMPLIFICATION RTC 6 months f/u for PCOS Scribe Attestation: By signing my name below, I, Randi St, attest that this documentation has been prepared under the direction and in the presence of Renata Clancy DO Electronically Signed: Hunter Greene. February 08, 2022 11:27 AM. I agree with the Chief Complaint, ROS, and Past Histories independently gathered by the clinical computer network support specialist and the remaining scribed note accurately describes my personal service to the patient. SIGNATURE: Renata Clancy DO DATE of SERVICE: 02/08/22 TIME of SERVICE: 11:27 AM Referring Provider: RENATA CLANCY [[id number]] Allergies As of Date: 02/08/2022 (No Known Allergies) Date Reviewed: 02/08/2022 Reviewed by: Renata Clancy DO - Fully Assessed Reason for Visit: Follow Up [171] Cmt: Pcos follow up 6 months Primary Visit Diagnosis:PCOS (polycystic ovarian syndrome) [E28.2] Other Visit Diagnosis:Trichomoniasis [A59.9] Order(s):T VAGINALIS AMPLIFICATION [SQTRVAMP] Order #: [id number] FUTURE HCG QUAL UR B/O [1109055] Order #: [id number] medroxyPROGESTERone (PROVERA) 10 mg table (more content not included)... Normal [facility] Amie 11-07-2021 YOSIN Telephone (OBGWMA) ----- BRIANNE SMITH ([id number]) 1995 F Date Time Provider Department 11/07/21 LA HOLM During your visit today, we recorded the following information about you: Gladys Valdovinos LPN 11/07/2021 2:03 PM Signed Patient notified of results/ recommendations. Patient stated she did not relies that the medication was to be taken 4 at once and has been taking one daily. Patient stated she is currently no longer experiencing any symptoms. Patient advised to take last dose. Patients testing is positive for Trichomoniasis, a sexually transmitted disease. ?When this test is positive, it is correct 83% of the time. ?She already has flagyl at from yesterday, but will need to take it differently to treat trich - ?4 pills, to be taken at one time. ?She should eat beforehand as they can cause stomach upset, and should not drink alcohol for 48 - 72 hours due interactions with alcohol which can lead to severe hangovers or life threatening reactions with alcohol. Gladys Valdovinos LPN Allergies As of Date: 11/07/2021 (No Known Allergies) Date Reviewed: 11/01/2021 Reviewed by: Hailee Leon LPN - Fully Assessed Reason for Visit: Results [95] Prescriptions as of 11/07/2021 - metroNIDAZOLE (FLAGYL) 500 mg tablet Take 1 tablet by mouth twice daily. for vaginosis. Do not drink alcohol while taking this medication Problem List As Of Date 11/07/2021 Noted Resolved PCOS (polycystic ovarian syndrome) [E28.2] 08/12/2021 Encounter Status:Closed by GLADYS VALDOVINOS on 11/07/21 Normal [facility] C. trachomatis+N. gonorrhoea e DNA PADMINI+probe Ql (Unsp spec)on 11-01-2021 C. trachomatis DNA PADMINI+probe Ql (Unsp spec) Negative Normal Negative for Chlamydia trachomatis by amplificaton [facility] Comment on above: Order Comment: Speci men Type: SWABOrdering Facility: [facility] Address: [address] [place] [phone] Performed By: #### 3 6902-5 ####[facility] [facility] LABORATORYCLIA [id number] [address]. gonorrhoeae DNA PADMINI+probe Ql (Unsp spec) Negative Normal Negative for Neisseria gonorrhoeae by amplification [facility] Comment on above: Order Comment: Speci men Type: SWABOrdering Facility: [facility] Address: [address] [place] [address] Performed By: #### 3 6902-5 ####[facility] LABORATORYCLIA [id number] [address] [facility] CNCOon 11-01-2021 CNCO Letter Text Normal [facility] CNOVon 11-01-2021 CNOV Office Visit (AGOBPO B) ----- BRIANNE SMITH ([id number]) 1995 F Date Time Provider Department 11/01/21 8:15 AM LA HOLM During your visit today, we recorded the following information about you: Blood pressure Weight Height Last Period 126/84 75 kg 1.549 m 10/07/21 La Holm DO 11/01/2021 8:46 AM Signed SERVICE DATE: 11/01/2021 SERVICE TIME: 8:35 AM Subjective CHIEF COMPLAINT: Vaginal infection HPI: This is a 26 year old female who presents with vaginal infection Generalized vuvlar and vaginal infection all over Started 1 week ago Had an E visit one week ago and was given diflucan without relief Looked for signs of her HSV with a mirror at home but did not see anything like this No immediate concern for STIs Presents now for evaluation PAST MEDICAL HISTORY Diagnosis Date - Herpes simplex type 2 infection PAST SURGICAL HISTORY Procedure Laterality Date - NONE History reviewed. No pertinent family history. Social History Tobacco Use - Smoking status: Never Smoker - Smokeless tobacco: Never Used Substance Use Topics - Alcohol use: Not on file - Drug use: Not on file (Not in a hospital admission) ALLERGIES No Known Allergies COMPLETE REVIEW OF SYSTEMS: No fevers or chills No dysuria, urgnency No vaginal discharge No Nausea/vomiting No dyspareunia No abdominal pain No back pain Objective PHYSICAL EXAM: 11/01/21 0807 BP: 126/84 Weight: 165 lb 6.4 oz (75 kg) Height: 5' 1 (1.549 m) Physical Exam Performed: GENERAL: Alert, no distress, cooperative SKIN: Skin color, texture, turgor normal. No rashes or lesions. HEAD/SINUSES: No significant findings, wears mask EYES: PERRLA, EOMI ABDOMEN: Abdomen soft, non-tender, BS normal, No masses or organomegaly EXTREMITIES: Extremities normal, no deformities, edema, clubbing or skin discoloration. Good capillary refill., No ulcers NEURO: Gait normal. Reflexes normal and symmetric. Sensation grossly intact, Cranial nerves II-XII intact GENITALIA FEMALE: Normal external genitalia, Normal vagina and normal vaginal tone, Normal cervix, Normal uterus, size and consistency, Normal adnexa without tenderness, thin homogenous discharge c/w BV ASSESSMENT/PLAN: 1. Vulvar itching - ICD9: 698.1, ICD10: L29.2 - FUNGAL SMEAR - TRICHOMONAS PREP/ANTIGEN - RAPID BACT VAGINOSIS (AK) - GC/CHLAMYDIA DNA DET DO La Ledesma DO 11/01/2021 8:46 AM Signed - Please call the office before going to the hospital. - If you are , go to the ER at the hospital main campus. Do not go to the outlying ER?s ([place], [place] or [place]). - If you need to go to an ER and cannot or will not go downtown, please use one of [facility]?s ER?s (not [facility], [place] or [facility]). La Holm DO 11/01/2021 8:47 AM Signed Addended by: LA HOLM on: 11/01/2021 08:47 AM Modules accepted: Orders Referring Provider: SELF [200] Allergies As of Date: 11/01/2021 (No Known Allergies) Date Reviewed: 11/01/2021 Reviewed by: Hailee Leon LPN - Fully Assessed Reason for Visit: Vaginal Discharge [4161] Cmt: itching Primary Visit Diagnosis:Vulvar itching [L29.2] Order(s):FUNGAL SMEAR [SQFUNGSM] Order #: [id number]. #:[id number] TRICHOMONAS PREP/ANTIGEN [SQTRICHO] Order #: [id number]. #:[id number] RAPID BACT VAGINOSIS (AK) [OVP1210] Order #: [id number]. #:[id number] GC/CHLAMYDIA DNA DET [SQGCCAMP] Order #: [id number]. #:[id number] metroNIDAZOLE (FLAGYL) 500 mg tabletTake 1 tablet by mouth twice daily. for vaginosis. Do not drink alcohol while taking this medicationDisp: 14 tabletRfl: 0 Prescriptions as of 11/02/2021 - metroNIDAZOLE (FLAGYL) 500 mg tablet Take 1 tablet by mouth twice daily. for vaginosis. Do not drink alcohol while taking this medication Problem List As Of Date 11/01/2021 Noted Resolved PCOS (polycystic ovarian syndrome) [E28.2] 08/12/2021 Other instructions from your clinician: - Please call the office before going to the hospital. - If you are , go to the ER at the community health systems main campus. Do not go to the outlying ER?s ([place], [place] or [place]). - If you need to go to an ER and cannot or will not go downtown, please use one of [facility]?s ER?s ([facility], [place] or [facility]). Prescriptions ordered this encounter Disp Refills Start End METRONIDAZOLE 500 MG TABLET 14 t* 0 11/01/2021 Route: ORAL Sig: Take 1 tablet by mouth twice daily. for vaginosis. Do not drink alcohol while taking this medication Encounter Status:Closed by LA HOLM on 11/01/21 Normal [facility] FUNGAL SMEARon 11-01-2021 FUNGAL SMEAR FUNGAL SMEAR: No fungus seen Normal [facility] Comment on above: Performed By: #### F UNGSM ####[facility] LABORATORYCLIA [id number] [address] [facility] RAPID BACT VAGINOSIS (AK)on 11-01-2021 Bacterial sialidase Ql (Unsp spec) Negative Normal Negative for the presence of bacterial vaginosis. [facility] Comment on above: Order Comment: Speci men Type: MICROBIAL ISOLATE [facility] Address: [address] [place] [address] Performed By: #### R APBVAG #### [facility] CLIA [id number] [address] T vaginalis Ag Genital Ql IA on 11-01-2021 T. vaginalis Ag IA Ql (Genital specimen) TRICHOMONAS PREP RESULT: Positive for Trichomonas vaginalis antigen Abnormal [facility] Comment on above: Performed By: #### 6 566-4 ####[facility] LABORATORYCLIA [id number] [address] [facility] CNPNon 09-12-2021 CNPN Telephone (OBGWMA) ----- BRIANNE SMITH ([id number]) 1995 F Date Time Provider Department 09/12/21 RENATA CLANCYGJAMILAH During your visit today, we recorded the following information about you: Gladys Valdovinos LPN 09/12/2021 8:56 AM Signed Patient calling nurse triage line stating she was told by her provider back in august's visit to call when she starts her menses to get lab work done to see if she ovulates. Patient started menses on Saturday09/06/21. Please place order and when she should get her labs drawn. PALOMO Leon DO 09/12/2021 2:42 PM Signed Progesterone order in. Will need drawn on day 3 of next menses. Thanks. Renata Clancy DO Allergies As of Date: 09/12/2021 (No Known Allergies) Date Reviewed: 08/12/2021 Reviewed by: Renata Clancy DO - Fully Assessed Reason for Visit: Orders [681] Primary Visit Diagnosis:PCOS (polycystic ovarian syndrome) [E28.2] Order(s):PROGESTERONE BLD [SQPROG] Order #: [id number] FUTURE Problem List As Of Date 09/12/2021 Noted Resolved PCOS (polycystic ovarian syndrome) [E28.2] 08/12/2021 Encounter Status:Closed by RENATA CLANCY on 09/12/21 [facility] CNOVon 08-10-2021 CNOV Office Visit (OBGWMA ) ----- BRIANNE SMITH ([id number]) 1995 F Date Time Provider Department 08/10/21 11:30 AM RENATA CLANCY OBGWMA During your visit today, we recorded the following information about you: Blood pressure Weight Height 116/78 75.8 kg 1.549 m Renata Clacny DO 08/12/2021 10:13 PM Signed SERVICE DATE: 08/10/2021 SERVICE TIME: 11:59 AM Subjective CHIEF COMPLAINT: HPI: This is a 26 year old female who presents for TVUS follow up for irregular menses. LMP 06/04/21 Last unprotected intercourse yesterday. Last took home test 1 week ago. Negative. Believes she stopped OCPs in March or April. Normal appearing anteverted uterus that measures 67 mm x 26 mm x 36 mm. The endometrium measures 8.2 mm. Both ovaries contain multiple small follicular cysts at the periphery of the ovarian stroma. This finding is suggestive of polycystic ovarian syndrome. No adnexal masses were observed. There is no free fluid visualized in the peritoneal cavity. Denies any other changes since last seen. PAST MEDICAL HISTORY Diagnosis Date - Herpes simplex type 2 infection PAST SURGICAL HISTORY Procedure Laterality Date - NONE History reviewed. No pertinent family history. Social History Tobacco Use - Smoking status: Never Smoker - Smokeless tobacco: Never Used Substance Use Topics - Alcohol use: Not on file - Drug use: Not on file (Not in a hospital admission) ALLERGIES No Known Allergies COMPLETE REVIEW OF SYSTEMS: PAIN ASSESSMENT: Negative for pain, history of chronic pain, or current treatment for a chronic pain condition. GENERAL: No weight loss, malaise or fevers HEENT: Negative for frequent or significant headaches, No changes in hearing or vision, no nose bleeds or other nasal problems NECK: Negative for lumps, goiter, pain and significant neck swelling RESPIRATORY: Negative for cough, hemoptysis, wheezing, COPD, dyspnea or shortness of breath CARDIOVASCULAR: Negative for chest pain, leg swelling, hypertension, CHF or palpitations GI: No nausea, vomiting, or diarrhea : No history of dysuria, frequency or incontinence SENSOR SPECIALIST: Positive for irregular menses MUSCULOSKELETAL: Negative for joint pain or swelling, back pain or muscle pain SKIN: Negative for lesions, rash, and itching PSYCH: Negative for sleep disturbance, mood disorder and recent psychosocial stressors HEMATOLOGY/LYMPHOLOGY: Negative for prolonged bleeding, bruising easily or swollen nodes ENDOCRINE: Negative for cold or heat intolerance, polyuria, polydipsia and goiter Objective PHYSICAL EXAM: 08/10/21 1145 BP: 116/78 Weight: 167 lb (75.8 kg) Height: 5' 1 (1.549 m) Physical Exam Performed: GENERAL: Alert, no distress, cooperative, Tearful SKIN: Skin color, texture, turgor normal. No rashes or lesions. HEAD/SINUSES: No significant findings EYES: PERRLA, EOMI EARS: External ears normal, canals clear NOSE: Wears mask NECK: Supple BACK: Back symmetric, Normal curvature LUNGS: Speaking in full sentences, breathing nonlabored CARDIAC: No bilateral JVD ABDOMEN: Normal abdomen EXTREMITIES: Extremities normal, no deformities, edema, clubbing or skin discoloration. Good capillary refill., No ulcers ASSESSMENT/PLAN: 1. PCOS (polycystic ovarian syndrome) - ICD9: 256.4, ICD10: E28.2 - Patient unsure when she discontinued OCPs, approximately 4 months ago. Having irregular periods - Labs reviewed and WNL - TVUS reviewed: Impression Normal appearing anteverted uterus that measures 67 mm x 26 mm x 36 mm. The endometrium measures 8.2 mm. Both ovaries contain multiple small follicular cysts at the periphery of the ovarian stroma. This finding is suggestive of polycystic ovarian syndrome. No adnexal masses were observed. There is no free fluid visualized in the peritoneal cavity. - Patient desires - Discussed ovulation induction, also discussed some women with PCOS do not have difficulty gettting - At this time, patient would like to continue trying to conceive naturally. Will call when she starts her next period and will order day 3 progesterone to assess if she ovulated - Patient agreeable to plan of care. Questions answered. Discussed implications of diagnosis of PCOS - Encouraged PNV RTC 6 months for PCOS follow up if not already DO Renata Li DO 08/10/2021 12:08 PM Signed Polycystic Ovary Syndrome Women with polycystic ovary syndrome (PCOS) have a hormonal imbalance that interferes with normal reproductive processes. PCOS usually starts at puberty and is associated with irregular periods and other hormone related symptoms. The most concerning issues with PCOS are the increase of infertility, the risk of developing type 2 diabetes and cardiovascular disease, and the higher risk of developing endometrial ( (more content not included)... Normal [facility] CNOV Office Visit (OBGWMA ) ----- BRIANNE SMITH ([id number]) 1995 F Date Time Provider Department 08/10/21 11:00 AM ULTRASOUND DEGREASING [employer] [facility] During your visit today, we recorded the following information about you: Referring Provider: RENATA CLANCY [[id number]] Allergies As of Date: 08/10/2021 (No Known Allergies) Date Reviewed: 08/10/2021 Reviewed by: Michelle Case LPN - Fully Assessed Reason for Visit: Us Procedure [4086] Visit Diagnosis:Irregular menses [N92.6] Problem List As Of Date: 08/10/2021 (None) Encounter Status:Closed by TAHIR MORA on 08/10/21 [facility] BIOAVAIL TESTO/SHBG, FEM AND CHILDon 07-10-2021 SEX HORMONE BIND GLB 61 nmol/L Normal 30-135 [facility] Comment on above: Order Comment: Speci men Type: BLOOD SPECIMEN [facility] Address: [address] [place] [address] Result Comment: (NOT E) REFERENCE INTERVAL: Sex Hormone Binding Globulin Access complete set of age- and/or gender-specific reference intervals for this test in the [facility] Test Directory ([employer]). Performed By: #### H PROG, BTSTFC #### [facility]FERENCE LAB CLIA [id number] [address] [place] TESTO BIOAVAILABLE 9.8 ng/dL Normal 2.2-20.6 [facility] Comment on above: Order Comment: Speci men Type: BLOOD SPECIMEN [facility] Address: [address] [place] [address] Result Comment: (NOT E) Testosterone LC-MS, Bioavailable Reference Interval Females, 18 years and older Postmenopausal: 1.5 - 9.4 ng/dL REFERENCE INTERVAL: Testosterone LC-MS, Bioavailable Access complete set of age- and/or gender-specific reference intervals for this test in the [facility] Test Directory ([employer]). Performed By: #### H PROG, BTSTFC #### [facility] CLIA [id number] [facility] [place] [address] [place] Testosterone [Mass/Vol] 30 ng/dL Normal 9-55 [facility] Comment on above: Order Comment: Speci men Type: BLOOD SPECIMEN [facility] Address: [address] [place] [address] Result Comment: (NOT E) Total Testosterone, Females 18 years and older Premenopausal 9-55 ng/dL Postmenopausal 5-32 ng/dL REFERENCE INTERVAL: Testosterone, LC-MS/MS Access complete set of age- and/or gender-specific reference intervals for this test in the [facility] Test Directory ([employer]). This test was developed and its performance characteristics determined by [employer]. It has not been cleared or approved by the [place] Food and Drug Administration. This test was performed in a CLIA certified laboratory and is intended for clinical purposes. Performed By: #### JAMILA MORENO #### [facility] CLIA [id number] [address] [place] [address] [place] TESTOSTERONE FREE 3.4 pg/mL Normal 0.8-7.4 [facility] Comment on above: Order Comment: Speci men Type: BLOOD SPECIMEN [facility] Address: [address] [place] [address] Result Comment: (NOT E) Testosterone, Free LC-MS/MS Reference Interval for Females 18 years and older Postmenopausal: 0.6 - 3.8 pg/mL To convert to pmol/L, multiply pg/mL by 3.47 The concentration of Free and Bioavailable Testosterone are derived from mathematical expressions based on constants for the binding of testosterone to albumin and/or sex hormone binding globulin. REFERENCE INTERVAL: Testosterone, Free LC-MS/MS Access complete set of age- and/or gender-specific reference intervals for this test in the [facility] Test Directory ([employer]). This test was developed and its performance characteristics determined by [employer]. It has not been cleared or approved by the [place] Food and Drug Administration. This test was performed in a CLIA certified laboratory and is intended for clinical purposes. Performed by [facility], [address] [place] [address] www.[employer], Makayla Aparicio MD, Lab. Director Performed By: #### JAMILA MORENO #### [facility] CLIA [id number] [address] [place] [address] [place] CNCOon 07-10-2021 CNCO Letter Text Normal [facility] CNOVon 07-10-2021 CNOV Office Visit (AGOBPO B) ----- BRIANNE SMITH ([id number]) 1995 F Date Time Provider Department 07/10/21 2:00 PM RENATA CLANCY During your visit today, we recorded the following information about you: Blood pressure Weight Height Last Period 128/86 82.7 kg 1.549 m 06/04/21 Renata Clancy DO 07/10/2021 2:30 PM Signed SERVICE DATE: 07/10/2021 SERVICE TIME: 2:09 PM Subjective CHIEF COMPLAINT: Irregular menses HPI: This is a 26 year old female who presents with irregular menstrual cycles. Was regular when on OCPs. Was on OCPs for cycle regulation. Does not want to restart OCPs; is trying to conceive. States off OCPs for about 1 year. Has been trying to conceive for 5 months. Not taking PNV. LMP 06/04/21. No cramps; flow x4-5 days. First two days heavy, then tapers. Normally patient has cramps. Period before last cycle was 04/05/22. Otherwise normal period for patient. Did skip cycle in May. Did take HPT, it was negative. Patient endorses healthier diet. No change in activity. Endorses history of HSV-2. One outbreak in 2019. Denies h/o GC/CT, Trichomoniasis. Does not smoke. Denies history of pelvic or abdominal surgery. Menses irregular in that she will skip one or two months at a time. States she has missed about 4 months since coming off of control. Patient states in a perfect world, she would be by 27 or 28, but at age 26 would be OK with it too. States she is having regular unprotected intercourse. States she is using OPKs, but doesn't remember the last time she ovulated. Last used OPK last month; did not detect that she ovulated. Denies any unwanted hair growth, denies headaches, denies diabetes history. Denies family history of difficulty conceiving. One sexual partner. Has not fathered any children. PAST MEDICAL HISTORY Diagnosis Date - Herpes simplex type 2 infection PAST SURGICAL HISTORY Procedure Laterality Date - NONE History reviewed. No pertinent family history. Social History Tobacco Use - Smoking status: Never Smoker - Smokeless tobacco: Never Used Substance Use Topics - Alcohol use: Not on file - Drug use: Not on file (Not in a hospital admission) ALLERGIES No Known Allergies COMPLETE REVIEW OF SYSTEMS: PAIN ASSESSMENT: Negative for pain, history of chronic pain, or current treatment for a chronic pain condition. GENERAL: No weight loss, malaise or fevers HEENT: Negative for frequent or significant headaches, No changes in hearing or vision, no nose bleeds or other nasal problems NECK: Negative for lumps, goiter, pain and significant neck swelling RESPIRATORY: Negative for cough, hemoptysis, wheezing, COPD, dyspnea or shortness of breath CARDIOVASCULAR: Negative for chest pain, leg swelling, hypertension, CHF or palpitations GI: No nausea, vomiting, or diarrhea : No history of dysuria, frequency or incontinence SENSOR SPECIALIST: irregular menses MUSCULOSKELETAL: Negative for joint pain or swelling, back pain or muscle pain SKIN: Negative for lesions, rash, and itching PSYCH: Negative for sleep disturbance, mood disorder and recent psychosocial stressors HEMATOLOGY/LYMPHOLOGY: Negative for prolonged bleeding, bruising easily or swollen nodes ENDOCRINE: Negative for cold or heat intolerance, polyuria, polydipsia and goiter Objective PHYSICAL EXAM: 07/10/21 1402 BP: 128/86 Weight: 182 lb 6.4 oz (82.7 kg) Height: 5' 1 (1.549 m) Physical Exam Performed: GENERAL: Alert, no distress, cooperative SKIN: Skin color, texture, turgor normal. No rashes or lesions. HEAD/SINUSES: No significant findings EYES: PERRLA, EOMI NOSE: Wears mask NECK: Supple BACK: Back symmetric, Normal curvature LUNGS: Lungs clear to auscultation, Good diaphragmatic excursion CARDIAC: Normal S1 and S2; no rubs, murmurs, or gallops ABDOMEN: Abdomen soft, non-tender, BS normal, No masses or organomegaly EXTREMITIES: Extremities normal, no deformities, edema, clubbing or skin discoloration. Good capillary refill., No ulcers GENITALIA FEMALE: Normal external genitalia, Normal vagina and normal vaginal tone, Normal cervix, Normal uterus, size and consistency, Normal adnexa without tenderness ASSESSMENT/PLAN: 1. Irregular menses - ICD9: 626.4, ICD10: N92.6 - BIOAVAIL TESTO/SHBG, FEM AND CHILD - DHEA-S BLD - HYDROXYPROGESTERO-17 - PELVIC US WHI - T4 FREE/FREE THYROX - TESTOSTERONE TOTAL - TSH BLD - Continue tracking cycles; continue regular unprotected intercourse. Does not meet criteria for infertility. Continue OPKs. Encouraged weight loss and healthy eating. - Discussed possible menses induction if not at 1 year angella. RTC for TVUS and lab follow up DO Renata Li DO 07/10/2021 2:26 PM Signed Polycystic Ovary Syndrome Women with polycystic ovary syndrome (PCOS) have a hormonal imbalance that int (more content not included)... Normal [facility] DHEA-S BLDon 07-10-2021 DHEA-S [Mass/Vol] 288.1 ug/dL Normal 98.8-340.0 [facility] Comment on above: Order Comment: Speci men Type: BLOOD SPECIMEN [facility] Address: [address] [place] [address] Result Comment: Refe rence ranges are age and gender specific. For additional information, reference range tables can be found in the laboratory test directory. The normal values are based on the following source: Dehydroepiandrosterone sulfate (DHEA S) [package insert V 17.0 [place]uvian]. [facility], [place], [place]: January 2013. Performed By: #### D WILBERTO #### [facility] CLIA [id number] [address] [place] [address] [id number] [place] HYDROXYPROGESTERO-17on 07-10 17-Hydroxyprogeste dolly [Mass/Vol] 44.60 ng/dL Normal <=206.00 [facility] Comment on above: Order Comment: Speci men Type: BLOOD SPECIMEN [facility] Address: [address] [place] [address] Result Comment: (NOT E) INTERPRETIVE INFORMATION for 17-Hydroxyprogesterone in females: Follicular 15 to 70 ng/dL Luteal 35 to 290 ng/dL REFERENCE INTERVAL: 17-Hydroxyprogesterone Qnt, HPLC-MS/MS Access complete set of age- and/or gender-specific reference intervals for this test in the [facility] Laboratory Test Directory ([employer]). This test was developed and its performance characteristics determined by [employer]. It has not been cleared or approved by the [place] Food and Drug Administration. This test was performed in a CLIA certified laboratory and is intended for clinical purposes. Performed By: [facility] [address] [place] [address] Shop Tech: Makayla Aparicio MD Performed By: #### H PROG, BTSTFC #### [facility] CLIA [id number] [address] [id number] [address] [place] T4 FREE/FREE THYROXon 2021 Free T4 [Mass/Vol] 1.4 ng/dL Normal 0.9-1.7 [facility] Comment on above: Order Comment: Speci men Type: BLOOD SPECIMEN Performed By: #### 3 016-3, FT4, TESTO #### [facility] CLIA [id number] [address] [facility] TESTOSTERONE TOTALon 022 Testosterone [Mass/Vol] 37 ng/dL Normal 9-48 [facility] Comment on above: Order Comment: Speci men Type: BLOOD SPECIMEN Performed By: #### 3 016-3, FT4, TESTO #### [facility] [facility] CLIA [id number] [address] [place] TSH SerPl-aCncon 07-10-2021 TSH Qn 1.720 m[IU]/L Normal 0.270-4.200 [facility] Comment on above: Order Comment: Speci men Type: BLOOD SPECIMEN Result Comment: If t he patient is , TSH reference range varies by gestational period: First Trimester (weeks 9-12): 0.180-2.990 mcIU/mL Second Trimester: 0.110-3.980 mcIU/mL Third Trimester: 0.480-4.710 mcIU/mL Raj Khan et al. A Practical Approach for the Verifications and Determination of Site- and Trimester-Specific Reference Intervals for Thyroid Function tests in . Thyroid, 2019:29:3:412-420. Nilo Delvalle, et al. 2017 Guidelines of the [place] Thyroid Association for the Diagnosis and Management of Thyroid Disease during and the . Thyroid, 2017:27:3:315-389. Performed By: #### 3 016-3, FT4, TESTO #### [facility] CLIA [id number] [address] Add On Lab Teston 08-17-2020 Sodium [Moles/Vol] Accepted [facility] Work Phone: Comment on above: Specimen available & acceptable for analysis. Test Performed by [facility], [address], [place] [id number] [place] [address] Work Phone: Add on test from HISon 08-17 Add on test from HIS Accepted Normal [facility] Comment on above: Result Comment: Spec imen available & acceptable for analysis. Performed By: #### A DDON #### [address] [place] [address] [place], [place] Comp Metabolic Panelon 08-17 ALP [Catalytic activity/Vol] 53 U/L Normal 38-126 [facility] Comment on above: Performed By: #### M G3, HEMDF, CMP3, LIPA4 #### [place] [address] [place], [place] ALT [Catalytic activity/Vol] 506 U/L High 0-34 [facility] Comment on above: Result Comment: The ALT test is performed by an updated assay method. Please note that the reference intervals have been changed and are now sex specific. Performed By: #### M G3, HEMDF, CMP3, LIPA4 #### [address] [address] [place], [place] AST [Catalytic activity/Vol] 259 U/L High 15-46 [facility] Comment on above: Performed By: #### M G3, HEMDF, CMP3, LIPA4 #### [facility] [address] [place], [place] Calcium [Mass/Vol] 9.1 mg/dL Normal 8.4-10.4 [facility] Comment on above: Performed By: #### M G3, HEMDF, CMP3, LIPA4 #### [facility] [address] [place], [place] Glucose [Mass/Vol] 150 mg/dL High 70-100 [facility] Comment on above: Performed By: #### M G3, HEMDF, CMP3, LIPA4 #### [facility] [address] [place], [place] Protein [Mass/Vol] 8.0 g/dL Normal 6.3-8.2 [facility] Comment on above: Performed By: #### M G3, HEMDF, CMP3, LIPA4 #### [facility] [address] [place], [place] Urea nitrogen [Mass/Vol] 3 mg/dL Low 7-20 [facility] Comment on above: Performed By: #### M G3, HEMDF, CMP3, LIPA4 #### [place] [address] [address] [address] [place], [place] Anion gap [Moles/Vol] 9 mmol/L Normal 3-13 [facility] Comment on above: Performed By: #### M G3, HEMDF, CMP3, LIPA4 #### [facility] [address] [place], [place] Bilirubin [Mass/Vol] 1.0 mg/dL Normal 0.2-1.3 [facility] Comment on above: Performed By: #### M G3, HEMDF, CMP3, LIPA4 #### [facility] [address] [place], [place] CO2 [Moles/Vol] 38 mmol/L High 22-30 [facility] Comment on above: Performed By: #### M G3, HEMDF, CMP3, LIPA4 #### [facility] [address] [place], [place] Creatinine [Mass/Vol] 0.84 mg/dL Normal 0.52-1.25 [facility] Comment on above: Performed By: #### M G3, HEMDF, CMP3, LIPA4 #### [facility] [address] [place] [address] GFR/1.73 sq M predicted among blacks MDRD (S/P/Bld) [Vol rate/Area] mL/min/{1.73_m2} Normal >60 [facility] Comment on above: Performed By: #### M G3, HEMDF, CMP3, LIPA4 #### [facility] [address] [place] [address] GFR/1.73 sq M predicted among non-blacks MDRD (S/P/Bld) [Vol rate/Area] mL/min/{1.73_m2} Normal >60 [facility] Comment on above: Result Comment: KDIG O guidelines provide the following GFR categories: Stage GFR(ml/min/1.73 m2) Terms G1 >=90 Normal or high G2 60-89 Mildly decreased* G3a 45-59 Mildly to moderately decreased G3b 30-44 Moderately to severely decreased G4 15-29 Severely decreased G5 <15 Kidney failure *Relative to young adult level. In the absence of evidence of kidney damage, neither GFR category G1 nor G2 fulfill the criteria for CKD. The CKD-EPI equation is validated in individuals 18 years of age and older. Currently the best equation for estimating glomerular filtration rate (GFR) from serum creatinine in children is the Bedside De Los Santos equation. It is less accurate in patients with extremes of muscle mass, restriction of dietary protein, ingestion of creatine, extra-renal metabolism of creatinine, or treatment with medications that affect renal tubular creatinine secretion. Performed By: #### M G3, HEMDF, CMP3, LIPA4 #### [facility] [address] [place], [place] Albumin [Mass/Vol] 4.3 g/dL Normal 3.5-5.0 [facility] Comment on above: Performed By: #### M G3, HEMDF, CMP3, LIPA4 #### [facility] [address] [place] [address] Chloride [Moles/Vol] 88 mmol/L Low 98-107 [facility] Comment on above: Performed By: #### M G3, HEMDF, CMP3, LIPA4 #### [facility] [address] [place] [address] Potassium [Moles/Vol] 3.0 mmol/L Low 3.5-5.1 [facility] Comment on above: Performed By: #### M G3, HEMDF, CMP3, LIPA4 #### [facility] [employer] [address] [place], [place] Sodium [Moles/Vol] 135 mmol/L Normal 135-145 [facility] Comment on above: Performed By: #### M G3, HEMDF, CMP3, LIPA4 #### [facility] [employer] [facility] [address] [place], [place] Complete Urinalysison 2020 Appearance (U) Turbid Abnormal Clear [facility] Comment on above: Result Comment: . Performed By: #### C UA2 ####[facility] [employer] [id number] [place], [place] Bacteria LM.HPF (Urine sed) [#/Area] Few Abnormal Negative [facility] [employer] Comment on above: Result Comment: . Performed By: #### C UA2 ####[facility] [employer] [id number] [place], [place] Bilirubin,Urine Negative Normal Negative [facility] Comment on above: Result Comment: . Performed By: #### C UA2 ####[facility] [employer] [id number] [place], [place] Cast, Hyaline Negative Normal Negative [facility] Comment on above: Result Comment: . Performed By: #### C UA2 ####[facility] [employer] [id number] [place], [place] Color (U) Yellow Normal Lt. Yellow [facility] Comment on above: Result Comment: . Performed By: #### C UA2 ####[facility] [employer] [id number] [place], [place] Glucose Ql (U) Normal Normal Normal (<70) [facility] Comment on above: Result Comment: . Performed By: #### C UA2 ####[facility] [employer] [id number] [place], [place] Ketone,Urine Negative Normal Negative [facility] Comment on above: Result Comment: . Performed By: #### C UA2 ####[facility] [employer] [id number] [place], [place] Leukocytes,Urine Negative Normal Negative [facility] Comment on above: Result Comment: . Performed By: #### C UA2 ####[id number] [place], [place] Mucous Threads Few Normal Negative [facility] Comment on above: Result Comment: . Performed By: #### C UA2 ####[address] Nitrites,Urine Negative Normal Negative [facility] Comment on above: Result Comment: . Performed By: #### C UA2 ####[address] Non-Squamous Epithelial 2 /[HPF] Abnormal Negative [facility] Comment on above: Result Comment: . Performed By: #### C UA2 ####[address] Occult Blood,Urine Negative Normal Negative [facility] Comment on above: Result Comment: . Performed By: #### C UA2 ####[address] pH (U) 6.5 Normal 5.0-8.0 [facility] Comment on above: Result Comment: . Performed By: #### C UA2 ####[address] Protein (U) [Mass/Vol] 10 mg/dL Abnormal Negative [facility] Comment on above: Result Comment: . Performed By: #### C UA2 ####[address] RBC LM.HPF (Urine sed) [#/Area] 0 - 2 Normal 0-2 [facility] Comment on above: Result Comment: . Performed By: #### C UA2 ####[address] Specific [place],Urine 1.006 Normal 1.005 - 1.030 [facility] Comment on above: Result Comment: . Performed By: #### C UA2 ####[address] Squamous Epithelial 11 - 25 Abnormal 3-5 [facility] Comment on above: Result Comment: . Performed By: #### C UA2 ####[facility] [id number] [place] [address] Urobilinogen,Urine Normal Normal Normal (0-1) [facility] Comment on above: Result Comment: . Performed By: #### C UA2 ####[facility] [place] [address] WBC LM.HPF (Urine sed) [#/Area] 11 - 25 Abnormal 0-5 [facility] Comment on above: Result Comment: . Performed By: #### C UA2 ####[facility] [place] [address] Comprehensive Metabolic Pane olivia 08-17-2020 Albumin [Mass/Vol] 4.3 g/dL 3.5 - 5.0 g/dL [facility] Work Phone: ALP [Catalytic activity/Vol] 53 U/L 38 - 126 U/L [facility] Work Phone: ALT [Catalytic activity/Vol] 506 U/L High 0 - 34 U/L [facility] Work Phone: Comment on above: The ALT test is perf ormed by an updated assay method. Please note that the reference intervals have been changed and are now sex specific. Anion gap [Moles/Vol] 9 mmol/L 3 - 13 mmol/L [facility] Work Phone: AST [Catalytic activity/Vol] 259 U/L High 15 - 46 U/L [facility] Work Phone: Bilirubin Ql (U) 1.0 mg/dL 0.2 - 1.3 mg/dL [facility] Work Phone: Calcium [Mass/Vol] 9.1 mg/dL 8.4 - 10.4 mg/dL [facility] Work Phone: Chloride [Moles/Vol] 88 mmol/L Low 98 - 107 mmol/L [facility] Work Phone: CO2 [Moles/Vol] 38 mmol/L High 22 - 30 mmol/L [facility] Work Phone: Creatinine [Mass/Vol] 0.84 mg/dL 0.52 - 1.25 mg/dL [employer] Work Phone: EGFR IF NonAfrican [place] >90.0 >60 mL/min [facility] Work Phone: Comment on above: KDIGO guidelines pro vide the following GFR categories: Stage GFR(ml/min/1.73 m2) Terms G1 >=90 Normal or high G2 60-89 Mildly decreased* G3a 45-59 Mildly to moderately decreased G3b 30-44 Moderately to severely decreased G4 15-29 Severely decreased G5 <15 Kidney failure *Relative to young adult level. In the absence of evidence of kidney damage, neither GFR category G1 nor G2 fulfill the criteria for CKD. The CKD-EPI equation is validated in individuals 18 years of age and older. Currently the best equation for estimating glomerular filtration rate (GFR) from serum creatinine in children is the Bedside De Los Santos equation. It is less accurate in patients with extremes of muscle mass, restriction of dietary protein, ingestion of creatine, extra-renal metabolism of creatinine, or treatment with medications that affect renal tubular creatinine secretion. GFR/1.73 sq M predicted among blacks MDRD (S/P/Bld) [Vol rate/Area] mL/min/{1.73_m2} >60 mL/min [facility] Work Phone: Glucose [Mass/Vol] 150 mg/dL High 70 - 100 mg/dL [employer] Work Phone: Interpretation and review of laboratory results Abnormal [facility] Work Phone: Potassium [Moles/Vol] 3.0 mmol/L Low 3.5 - 5.1 mmol/L [facility] Work Phone: Protein [Mass/Vol] 8.0 g/dL 6.3 - 8.2 g/dL [employer] [facility] Work Phone: Sodium [Moles/Vol] 135 mmol/L 135 - 145 mmol/L [facility] Work Phone: Urea nitrogen [Mass/Vol] 3 mg/dL Low 7 - 20 mg/dL [facility] Work Phone: ED Provider Noteon 1 [facility] Patient: Brianne OSULLIVANN:[id number] : 1995 Date of Evaluation: 08/17/2020 ED PATTI Provider: MISHEL Holly CNP Chief Complaint Chief Complaint Patient presents with ? Emesis off and on for past 2 weeks; states increased personal stress recently ue to of her bother; GUS Smith is a 25 y.o. female who presents to the emergency department with intermittent nausea and vomiting for the past 2 weeks. She is wondering if this is related to stress as her brother was murdered recently but now that she thinks about it she had symptoms prior to his . She does not throw up every day but if she does throw up it is one emesis after eating and then she does not throw up again. When asked whether or not dairy makes this better or worse she reports that sometimes she can drink milk without difficulty and sometimes she cannot. She denies any fevers or chills. She denies any abdominal pain or back pain. No vaginal discharge or odor and denies any dysuria. She had a headache last week that is not present at this time and was not unusual for her. She thinks that she may have thrown up anywhere between 3 and 10 times in the past 2 weeks. ROS: Review of Systems At least 10 systemsreviewed and otherwise acutely negative except as in the [place]. Past History Past Medical History: Diagnosis Date ? Herpes History reviewed. No pertinent surgical history. Social History Socioeconomic History ? Marital status: Single Spouse name: None ? Number of children: None ? Years of education: None ? Highest education level: None Occupational History ? None Social Needs ? Financial resource strain: None ? Food insecurity Worry: None Inability: None ? Transportation needs Medical: None Non-medical: None Tobacco Use ? Smoking status: Never Smoker ? Smokeless tobacco: Never Used Substance and Sexual Activity ? Alcohol use: Yes Frequency: Monthly or less Comment: on holidays and birthdays only ? Drug use: Never ? Sexual activity: Yes Partners: Male Lifestyle ? Physical activity Days per week: None Minutes per session: None ? Stress: None Relationships ? Social connections Talks on phone: None Gets together: None Attends church service: None Active member of club or organization: None Attends meetings of clubs or organizations: None Relationship status: None ? Intimate partner violence Fear of current or ex partner: None Emotionally abused: None Physically abused: None Forced sexual activity: None Other Topics Concern ? None Social History Narrative ? None Medications/Allergies Discharge Medication List as of 08/17/2020 4:54 PM CONTINUE these medications which have NOT CHANGED Details Vit-Fe Fumarate-FA ( VITAMINS) 28-0.8 MG TABS Take 1 tablet by mouth daily SUBSTITUTE GENERIC VITAMIN PER PT'S INSURANCE., Disp-30 tablet, R-11Normal norethindrone-ethinyl estradiol (LOESTRIN FE 06/22) 1-20 MG-MCG per tablet Take 1 tablet by mouth daily, Disp-1 packet,R-12Normal No Known Allergies Physical Exam ED Triage Vitals BP Temp Temp Source Pulse Resp SpO2 Height Weight 08/17/20 0947 08/17/20 0947 08/17/20 0947 08/17/20 0953 08/17/20 0947 08/17/20 0947 08/17/20 0947 08/17/20 0947 (!) 135/90 98.4 ?F (36.9 ?C) Oral 100 18 100 % 5' 1 (1.549 m) 172 lb (78 kg) Physical Exam General: Well-nourished, well-developed, vital signs noted HEENT: Dry mucous membranes, sclerae clear Cardiac: Regular heart rate and rhythm Pulmonary: No respiratory distress, lungs clear, speaking in full sentences Abdomen: No bruit appreciated on auscultation, soft, nontender, no CVA tenderness Extremities: No peripheral edema noted, nontender Skin: Normal color, warm, dry, no jaundice or pallor Neurologic: Alert with no focal findings Psychiatric: Cooperative and appropriate exam otherwise unremarkable Diagnostics Labs: Results for orders placed or performed during the hospital encounter of 08/17/20 Comprehensive Metabolic Panel Result Value Ref Range Sodium 135 135 - 145 mmol/L Potassium 3.0 (L) 3.5 - 5.1 mmol/L Chloride 88 (L) 98 - 107 mmol/L CO2 38 (H) 22 - 30 mmol/L Anion Gap 9 3 - 13 mmol/L Glucose 150 (H) 70 - 100 mg/dL BUN 3 (L) 7 - 20 mg/dL CREATININE 0.84 0.52 - 1.25 mg/dL eGFR >90.0 >60 mL/min EGFR IF NonAfrican [place] >90.0 >60 mL/min Calcium 9.1 8.4 - 10.4 mg/dL Albumin,Serum 4.3 3.5 - 5.0 g/dL Total Protein 8.0 6.3 - 8.2 g/dL Total Bilirubin 1.0 0.2 - 1.3 mg/dL Alkaline Phosphatase 53 38 - 126 U/L ALT 506 (H) 0 - 34 U/L AST 259 (H) 15 - 46 U/L Hemogram (CBC) w/Auto Diff Result Value Ref Range WBC 3.7 3.6 - 10.7 10*3/uL RBC 5.01 3.80 - 5.20 10*6/uL Hemoglobin 13.5 11.7 - 16.0 g/dL Hematocrit 41.0 35.0 - 47.0 % MCV 82.0 79.0 - 98.0 fL MCH 27.0 26.0 - 34.0 pg MCHC 32.9 32.0 - 36.0 % RDW 13.6 11.5 - 14.5 % Platelets 226 140 - 440 10*3/uL MPV 8.3 7.4 - 10.4 fL Granulocytes % 48.8 40.0 - 80.0 % Lymphocyte % 37.1 20.0 - 40.0 % Monocytes 13.4 (H) 2.0 - 10.0 % Eosinophils 0.3 (L) 1.0 - 6.0 % Basophils 0.4 0.0 - 2.0 % Absolute Neut # 1.8 1.8 - 7.0 10*3/uL Absolute Lymph # 1.4 1.0 - 4.3 10*3/uL Absolute Sweet Grass # 0.5 0.0 - 0.8 10*3/uL Absolute Eos # 0.0 0.0 - 0.5 10*3/uL Absolute Baso # 0.0 0.0 - 0.2 10*3/uL Lipase Result Value Ref Range Lipase 183 23 - 300 U/L Urinalysis Result Value Ref Range Glucose, Ur Normal Normal (<70) mg/dL Total Protein, Urine 10 (A) Negative mg/dL Bilirubin Urine Negative Negative mg/dL Urobilinogen, Urine Normal Normal (0-1) mg/dL pH, Urine 6.5 5.0 - 8.0 NA Specific [place], Urine 1.006 1.005 - 1.030 NA Occult Blood,Urine Negative Negative mg/dL Ketones, Urine Negative Negative mg/dL Nitrite, Urine Negative Negative NA LEUKOCYTES, UA Negative Negative [place]/uL Appearance Turbid (A) Clear NA Color, Urine Yellow Lt. Yellow NA RBC, UA 0-2 0 - 2 /[HPF] WBC, UA 11-25 (A) 0 - 5 /[HPF] Squam Epithel, UA 11-25 (A) 3 - 5 /[HPF] Non-Squamous Epithelial 2 (A) Negative /[HPF] Bacteria, UA Few (A) Negative /[HPF] Mucous Threads Few Negative /[LPF] Hyaline Casts, UA Negative Negative /[LPF] Add On Lab Test Result Value Ref Range Add On Accepted NA Magnesium Result Value Ref Range Magnesium 1.7 1.6 - 2.3 mg/dL Potassium Result Value Ref Range Potassium 3.5 3.5 - 5.1 mmol/L Radiographs: No results found. Procedures: Procedures ED Course and MDM In brief, Brianne Smith is a 25 y.o. female who presented to the emergency department as described above. Patient later explains that she started a keto diet and symptoms started soon after that. Labs reviewed noted for hypokalemia. I added on magnesium which is normal. Labs otherwise within acceptable limits. Patient reports that she has had loose stools and has a bowel movement that is loose every few days. She denies history of abdominal surgery and has good bowel sounds and I have low suspicion for obstruction. Patient is given potassium replacement and repeat potassium 3.5. She is tolerating p.o. without difficulty in the emergency department and eating fries and chicken fingers. No peritoneal signs on reexam. Patient is given prescription for Zofran and will follow up with primary care provider. She agrees to return with any new or worsening symptoms. She is also given referral to GI. Patient plans on stopping the keto diet to see how this affects her nausea and vomiting. ED Medication Orders (From admission, onward) Start Ordered Status Ordering Provider 08/17/20 1200 08/17/20 1148 potassium chloride (KLOR-CON M) extended release tablet 40 mEq ONCE Last AUG action: Given - by GINA BLAKELY on 08/17/20 at 1257 [address] 08/17/20 1200 08/17/20 1154 potassium chloride 10 mEq/100 mL IVPB (Peripheral Line) EVERY HOUR Last AUG action: Stopped - by JEANIE SHERIDAN on 08/17/20 at 1553 [address] 08/17/20 1030 08/17/20 1016 sodium chloride flush 0.9 % injection 3 mL EVERY 8 HOURS Last AUG action: Given - by GINA BLAKELY on 08/17/20 at 1027 [address] 08/17/20 1030 08/17/20 1016 0.9 % sodium chloride bolus ONCE Last AUG action: Stopped - by GINA BLAKELY on 08/17/20 at 1120 F[address] 08/17/20 1030 08/17/20 1016 ondansetron (ZOFRAN) injection 4 mg ONCE Last AUG action: Given - by GINA BLAKELY on 08/17/20 at 1033 F[address]DE Final Impression 1. Nausea and vomiting, intractability of vomiting not specified, unspecified vomiting type 2. Hypokalemia DISPOSITION Decision To Discharge 08/17/2020 04:21:29 PM Patient seen by myself per my scope of practice with an Emergency Medicine attending available for collaboration as needed. (Please note that portions of this note may have been completed with a voice recognition program. Efforts were made to edit the dictations but occasionally words aremis-transcribed.) Fay Velarde APRN - [employer] MISHEL Holly CNP 08/17/20 1737 MISHEL Holly CNP 08/17/20 1738 MISHEL Holly CNP 08/17/20 1739 Normal [facility] Hemogram (CBC) w/Auto Diffon 08-17-2020 Absolute Baso # 0.0 10*3/uL 0.0 - 0.2 10*3/uL [facility] Work Phone: Absolute Neut # 1.8 10*3/uL 1.8 - 7.0 10*3/uL [facility] Work Phone: Basophils/100 WBC (Bld) 0.4 % 0.0 - 2.0 % [facility] Work Phone: [phone] Eosinophils (Bld) [#/Vol] 0.0 10*3/uL 0.0 - 0.5 10*3/uL [employer] Work Phone: [phone] Eosinophils/100 WBC (Bld) 0.3 % Low 1.0 - 6.0 % [employer] Work Phone: [phone] Erythrocyte distribution width (RBC) [Ratio] 13.6 % 11.5 - 14.5 % [employer] Work Phone: [phone] Granulocytes/100 WBC (Bld) 48.8 % 40.0 - 80.0 % [employer] Work Phone: [phone] Hematocrit (Bld) [Volume fraction] 41.0 % 35.0 - 47.0 % [employer] Work Phone: [phone] Hemoglobin (Bld) [Mass/Vol] 13.5 g/dL 11.7 - 16.0 g/dL [employer] Work Phone: [phone] Interpretation and review of laboratory results Abnormal [employer] Work Phone: [phone] Lymphocytes (Bld) [#/Vol] 1.4 10*3/uL 1.0 - 4.3 10*3/uL [employer] Work Phone: [phone] Lymphocytes/100 WBC (Bld) 37.1 % 20.0 - 40.0 % [employer] Work Phone: [phone] MCH (RBC) [Entitic mass] 27.0 pg 26.0 - 34.0 pg [facility] Work Phone: [phone] MCHC (RBC) [Mass/Vol] 32.9 % 32.0 - 36.0 % [employer] Work Phone: [phone] MCV (RBC) [Entitic vol] 82.0 fL 79.0 - 98.0 fL [employer] Work Phone: [phone] Monocytes (Bld) [#/Vol] 0.5 10*3/uL 0.0 - 0.8 10*3/uL [facility] Work Phone: [phone] Monocytes/100 WBC (Bld) 13.4 % High 2.0 - 10.0 % [employer] Work Phone: [phone] Platelet mean volume (Bld) [Entitic vol] 8.3 fL 7.4 - 10.4 fL [employer] Work Phone: [phone] Platelets (Bld) [#/Vol] 226 10*3/uL 140 - 440 10*3/uL [employer] Work Phone: [phone] RBC (Bld) [#/Vol] 5.01 10*6/uL 3.80 - 5.2 0 10*6/uL [facility] Work Phone: [phone] WBC (Bld) [#/Vol] 3.7 10*3/uL 3.6 - 10.7 10*3/uL [employer] Work Phone: [phone] Test Performed by [facility] [employer] [facility], [address] [place] [id number] [facility] Work Phone: [phone] Hemogram w/ Autodiffon 08-17 Abs Baso Cnt 0.0 10*3/uL Normal 0.0-0.2 [facility] [employer] Comment on above: Performed By: #### M G3, HEMDF, CMP3, LIPA4 #### [facility] [employer] [address] [place] [phone] Abs Neutrophile Cnt 1.8 10*3/uL Normal 1.8-7.0 [facility] Comment on above: Performed By: #### M G3, HEMDF, CMP3, LIPA4 #### [facility] [employer] [address] [place] [phone] Basophils/100 WBC (Bld) 0.4 % Normal 0.0-2.0 [facility] Comment on above: Performed By: #### M G3, HEMDF, CMP3, LIPA4 #### [facility] [employer] [address] [place] [phone] Eosinophils (Bld) [#/Vol] 0.0 10*3/uL Normal 0.0-0.5 [facility] Comment on above: Performed By: #### M G3, HEMDF, CMP3, LIPA4 #### [facility] [address] [place] [phone] Eosinophils/100 WBC (Bld) 0.3 % Low 1.0-6.0 [facility] [facility] Comment on above: Performed By: #### M G3, HEMDF, CMP3, LIPA4 #### [address] [place], [place] Erythrocyte distribution width (RBC) [Ratio] 13.6 % Normal 11.5-14.5 [facility] Comment on above: Performed By: #### M G3, HEMDF, CMP3, LIPA4 #### [address] [place], [place] Granulocytes/100 WBC (Bld) 48.8 % Normal 40.0-80.0 [facility] Comment on above: Performed By: #### M G3, HEMDF, CMP3, LIPA4 #### [address] [place], [place] Hematocrit (Bld) [Volume fraction] 41.0 % Normal 35.0-47.0 [facility] Comment on above: Performed By: #### M G3, HEMDF, CMP3, LIPA4 #### [address] [place], [place] Hemoglobin (Bld) [Mass/Vol] 13.5 g/dL Normal 11.7-16.0 [facility] Comment on above: Performed By: #### M G3, HEMDF, CMP3, LIPA4 #### [address] [place], [place] Lymphocytes (Bld) [#/Vol] 1.4 10*3/uL Normal 1.0-4.3 [facility] Comment on above: Performed By: #### M G3, HEMDF, CMP3, LIPA4 #### [address] [place], [place] Lymphocytes/100 WBC (Bld) 37.1 % Normal 20.0-40.0 [facility] Comment on above: Performed By: #### M G3, HEMDF, CMP3, LIPA4 #### [address] [place], [place] MCH (RBC) [Entitic mass] 27.0 pg Normal 26.0-34.0 [facility] Comment on above: Performed By: #### M G3, HEMDF, CMP3, LIPA4 #### [address] [place], [place] MCHC (RBC) [Mass/Vol] 32.9 % Normal 32.0-36.0 [facility] Comment on above: Performed By: #### M G3, HEMDF, CMP3, LIPA4 #### [address] [place], [place] MCV (RBC) [Entitic vol] 82.0 fL Normal 79.0-98.0 [facility] Comment on above: Performed By: #### M G3, HEMDF, CMP3, LIPA4 #### [address] [place], [place] Monocytes (Bld) [#/Vol] 0.5 10*3/uL Normal 0.0-0.8 [facility] Comment on above: Performed By: #### Suzanne G3, HEMDF, CMP3, LIPA4 #### [address] [place], [place] Monocytes/100 WBC (Bld) 13.4 % High 2.0-10.0 [facility] Comment on above: Performed By: #### M G3, HEMDF, CMP3, LIPA4 #### [address] [address] [place], [place] Platelet mean volume (Bld) [Entitic vol] 8.3 fL Normal 7.4-10.4 [facility] Comment on above: Performed By: #### M G3, HEMDF, CMP3, LIPA4 #### [address] [place], [place] Platelets (Bld) [#/Vol] 226 10*3/uL Normal 140-440 [facility] Comment on above: Performed By: #### M G3, HEMDF, CMP3, LIPA4 #### [address] [address] [place], [place] RBC (Bld) [#/Vol] 5.01 10*6/uL Normal 3.80-5.20 [facility] Comment on above: Performed By: #### M G3, HEMDF, CMP3, LIPA4 #### [facility] [address] [place] [address] WBC (Bld) [#/Vol] 3.7 10*3/uL Normal 3.6-10.7 [facility] Comment on above: Performed By: #### M G3, HEMDF, CMP3, LIPA4 #### [facility] [address] [place] [address] Lipaseon 08-17-2020 Lipase [Catalytic activity/Vol] 183 U/L Normal 23-300 [facility] Comment on above: Performed By: #### M G3, HEMDF, CMP3, LIPA4 #### [facility] [address] [place], [place] Lipase [Catalytic activity/Vol] 183 U/L 23 - 300 U/L [facility] Work Phone: Magnesiumon 08-17-2020 Magnesium [Mass/Vol] 1.7 mg/dL Normal 1.6-2.3 [facility] Comment on above: Performed By: #### M G3, HEMDF, CMP3, LIPA4 #### [facility] [address] [place] [address] Magnesium [Mass/Vol] 1.7 mg/dL 1.6 - 2.3 mg/dL [facility] Work Phone: Test Performed by [facility], [address] [place] [id number] [facility] Work Phone: Otheron 08-17-2020 Test Performed by [facility], [address] [place] [id number] [facility] Work Phone: Potassiumon 08-17-2020 Potassium [Moles/Vol] 3.5 mmol/L Normal 3.5-5.1 [facility] Comment on above: Performed By: #### K 3 ####[facility] [place] [address] Potassium [Moles/Vol] 3.5 mmol/L 3.5 - 5.1 mmol/L [facility] Work Phone: Test Performed by [facility], [address] [place] [id number] [facility] Work Phone: Urinalysison 08-17-2020 Appearance (U) Turbid Abnormal Clear NA [facility] Work Phone: Comment on above: . Bacteria, UA Few Abnormal Negative /[HPF] [facility] Work Phone: Comment on above: . Bilirubin Urine Negative Negative mg/dL [facility] Work Phone: Comment on above: . Color (U) Yellow Lt. Yellow NA [employer] Work Phone: Comment on above: . Glucose, Ur Normal Normal (<70) mg/dL [facility] Work Phone: Comment on above: . Hyaline Casts, UA Negative Negative /[LPF] [facility] Work Phone: [phone] Comment on above: . Interpretation and review of laboratory results Abnormal [facility] Work Phone: Ketones Ql (U) Negative Negative mg/dL [facility] Work Phone: Comment on above: . LEUKOCYTES, UA Negative Negative Henok/uL [facility] Work Phone: Comment on above: . Mucous Threads Few Negative /[LPF] [facility] Work Phone: Comment on above: . Nitrite, Urine Negative Negative NA [facility] Work Phone: Comment on above: . Non-Squamous Epithelial 2 /[HPF] Abnormal Negative [facility] Work Phone: Comment on above: . Occult Blood,Urine Negative Negative mg/dL [facility] Work Phone: Comment on above: . pH (U) 6.5 [pH] [facility] Work Phone: Comment on above: . Protein (U) [Mass/Vol] 10 mg/dL Abnormal Negative [facility] Work Phone: Comment on above: . RBC (U) [#/Vol] 0-2 0 - 2 /[HPF] [facility] Work Phone: Comment on above: . Specific [place], Urine 1.006 [employer] Work Phone: Comment on above: . Squam Epithel, UA 11-25 Abnormal 3 - 5 /[HPF] [employer] Work Phone: Comment on above: . Urobilinogen, Urine Normal Normal (0-1) mg/dL [employer] Work Phone: Comment on above: . WBC, UA 11-25 Abnormal 0 - 5 /[HPF] [employer] Work Phone: Comment on above: . Test Performed by [facility], [address] [place] [phone] [employer] Work Phone: CULTURE URINEon 02-07-2020 CULTURE URINE CULTURE URINE --> St atus: F Normal urogenital thomas present. 1 Organism Escherichia coli >100,000 CFU/ml ------ 1 Organism ------ Antibiotic Result Intrp ------ Ampicillin(SPENSER) <= 2 S Cefazolin(SPENSER) <= 4 S Ceftriaxone(SPENSER) <= 1 S Cefepime(SPENSER) <= 1 S Aztreonam(SPENSER) <= 1 S Amoxicillin/Clavulanic Acid(SPENSER) <= 2 S Ampicillin/Sulbactam(SPENSER) <= 2 S Pip/Tazobactam(SPENSER) <= 4 S Meropenem(SPENSER) <= 0.25 S Ciprofloxacin(SPENSER) <= 0.25 S Trimeth/Sulfa(SPENSER) <= 20 S Nitrofurantoin(SPENSER) <= 16 S Gentamicin(SPENSER) <= 1 S Amikacin(SPENSER) <= 2 S Normal [facility] Comment on above: Performed By: #### C /UR #### [facility] [address] [place] [facility] [address] [place], [place] #### CUA2 #### [facility] [address] [place], [place] Add on test from HISon 02-04 Add on test from HIS Accepted Normal [facility] Comment on above: Result Comment: Spec imen available & acceptable for analysis. Performed By: #### A DDON #### [address] [place], [place] Complete Urinalysison 2019 Appearance (U) Turbid Abnormal Clear [facility] Comment on above: Result Comment: . Performed By: #### C /UR #### [facility] [address] [place] [facility] [address] [place] #### CUA2 #### [facility] [address] [place] Bacteria LM.HPF (Urine sed) [#/Area] Few Abnormal Negative [facility] Comment on above: Result Comment: . Performed By: #### C /UR #### [facility] [address] [place] [facility] [address] [place] #### CUA2 #### [facility] [address] [place] Bilirubin,Urine 1 mg/dL Abnormal Negative [facility] Comment on above: Result Comment: . Performed By: #### C /UR #### [facility] [address] [place] [facility] [address] [place] #### CUA2 #### [facility] [address] [place] Cast, Hyaline Negative Normal Negative [facility] Comment on above: Result Comment: . Performed By: #### C /UR #### [facility] [address] [facility] [facility] [address] [facility] #### CUA2 #### [facility] [address] [facility] Color (U) Dark-Yellow Abnormal Lt. Yellow [facility] Comment on above: Result Comment: . Performed By: #### C /UR #### [facility] [address] [facility] [facility] [address] [facility] #### CUA2 #### [facility] [address] [place], [place] Glucose Ql (U) Normal Normal Normal (<70) [facility] Comment on above: Result Comment: . Performed By: #### C /UR #### [facility] [address] [facility] [facility] [address] [facility] #### CUA2 #### [facility] [address] [facility] Ketone,Urine Negative Normal Negative [facility] Comment on above: Result Comment: . Performed By: #### C /UR #### [facility] [address] [facility] [facility] [address] [facility] #### CUA2 #### [facility] [address] [facility] Leukocytes,Urine 500 Henok/uL Abnormal Negative [facility] Comment on above: Result Comment: . Performed By: #### C /UR #### [facility] [address] [facility] [facility] [address] [facility] #### CUA2 #### [facility] [address] [facility] Mucous Threads Few Normal Negative [facility] Comment on above: Result Comment: . Performed By: #### C /UR #### [facility] [address] [facility] [place] [facility] [address] [facility] #### CUA2 #### [facility] [address] [facility] Nitrites,Urine Positive Abnormal Negative [facility] Comment on above: Result Comment: . Performed By: #### C /UR #### [facility] [address] [facility] [place] [facility] [address] [facility] #### CUA2 #### [facility] [address] [facility] Non-Squamous Epithelial 1 /[HPF] Abnormal Negative [facility] Comment on above: Result Comment: . Performed By: #### C /UR #### [facility] [address] [facility] [facility] [address] [facility] #### CUA2 #### [facility] [address] [facility] Occult Blood,Urine > 1.0 Abnormal Negative [facility] Comment on above: Result Comment: . Performed By: #### C /UR #### [facility] [address] [facility] [place] [facility] [address] [facility] #### CUA2 #### [facility] [address] [facility] pH (U) 6.0 Normal 5.0-8.0 [facility] Comment on above: Result Comment: . Performed By: #### C /UR #### [facility] [address] [facility] [place] [facility] [address] [facility] #### CUA2 #### [facility] [address] [facility] Protein (U) [Mass/Vol] 100 mg/dL Abnormal Negative [facility] Comment on above: Result Comment: . Performed By: #### C /UR #### [facility] [address] [place] [facility] [address] [place] #### CUA2 #### [facility] [address] [place] RBC LM.HPF (Urine sed) [#/Area] /[HPF] Abnormal 0-2 [facility] Comment on above: Result Comment: . Performed By: #### C /UR #### [facility] [address] [place] [address] [place], [place] #### CUA2 #### [address] [place], [place] Specific [place],Urine 1.014 Normal 1.005 - 1.030 [facility] Comment on above: Result Comment: . Performed By: #### C /UR #### [facility] [address] [place] [address] [place] #### CUA2 #### [address] [place] Squamous Epithelial 6 - 10 Abnormal 3-5 [facility] Comment on above: Result Comment: . Performed By: #### C /UR #### [facility] [place] [place] [address] [place], [place] #### CUA2 #### [facility] [address] [place] Urobilinogen,Urine 3 mg/dL Abnormal Normal (0-1) [facility] Comment on above: Result Comment: . Performed By: #### C /UR #### [facility] [address] [place] [address] [place] #### CUA2 #### [facility] [address] [place] WBC LM.HPF (Urine sed) [#/Area] /[HPF] Abnormal 0-5 [facility] Comment on above: Result Comment: . Performed By: #### C /UR #### [facility] [address] [place] [facility] [address] [place] #### CUA2 #### [facility] [address] [place], [place] White Blood Cell Clump Many Abnormal Negative [facility] Comment on above: Result Comment: . Performed By: #### C /UR #### [facility] [address] [place], [place] [facility] [address] [place], [place] #### CUA2 #### [facility] [address] [place], [place] ED Provider Noteon 0 ED Provider Note ----- ----- Attestation signed by Erika Sheridan DO at 02/05/2020 8:33 PM I did not individually evaluate this patient. While I was not directly involved in patient care, I was available in the emergency department for assistance. [facility] Patient: Brianne Smith : 1995 Date of Evaluation: 02/05/2020 ED PATTI Provider: KRANTHI Bee Chief Complaint Chief Complaint Patient presents with ? Urinary Retention Pt having burning w/urination when woke up this am. Came in to get ATB. REDDING I was wearing a n95 mask for the entirety of this encounter. Brianne Smith is a 24 y.o. female who presents to the emergency department For evaluation of frequency, burning with urination and suprapubic abdominal pain with urination. Patient started having her symptoms this morning. Patient which she has a urinary tract infection. Patient is not having any back pain and has had a urinary tract infection in the past. She denies that she could be and has never had a kidney infection. Patient denies illicit drug use or alcohol use. Patient denies aggravating/alleviating factors. Patient denies CP, SOB, fevers, aches, chills, frequency, urgency, constipation or diarrhea. Patient's past medical history includes UTI ROS: Review of Systems At least 10 systems reviewed and otherwise acutely negative except as in the REDDING. Past History No past medical history on file. No past surgical history on file. Social History Socioeconomic History ? Marital status: Single Spouse name: Not on file ? Number of children: Not on file ? Years of education: Not on file ? Highest education level: Not on file Occupational History ? Not on file Social Needs ? Financial resource strain: Not on file ? Food insecurity Worry: Not on file Inability: Not on file ? Transportation needs Medical: Not on file Non-medical: Not on file Tobacco Use ? Smoking status: Not on file Substance and Sexual Activity ? Alcohol use: Not on file ? Drug use: Not on file ? Sexual activity: Not on file Lifestyle ? Physical activity Days per week: Not on file Minutes per session: Not on file ? Stress: Not on file Relationships ? Social connections Talks on phone: Not on file Gets together: Not on file Attends church service: Not on file Active member of club or organization: Not on file Attends meetings of clubs or organizations: Not on file Relationship status: Not on file ? Intimate partner violence Fear of current or ex partner: Not on file Emotionally abused: Not on file Physically abused: Not on file Forced sexual activity: Not on file Other Topics Concern ? Not on file Social History Narrative ? Not on file Medications/Allergies Previous Medications No medications on file No Known Allergies Physical Exam ED Triage Vitals [02/05/20 0837] BP Temp Temp Source Pulse Resp SpO2 Height Weight 124/77 98.2 ?F (36.8 ?C) Oral 82 16 100 % -- -- Physical Exam GENERAL APPEARANCE: Awake and alert. Cooperative. No acute distress. HEAD: Normocephalic. Atraumatic. EYES: EOM's grossly intact. Sclera anicteric. ENT: Mucous membranes are moist. Tolerates saliva. No trismus. NECK: Supple. Trachea midline. HEART: RRR. No gallops or murmurs noted. LUNGS: Respirations unlabored. CTAB, no rhonchi, rales or wheezing with inspiration or expiration. ABDOMEN: Soft. Non-tender. No guarding or rebound. EXTREMITIES: No acute deformities. SKIN: Warm and dry. NEUROLOGICAL: No gross facial drooping. Moves all 4 extremities spontaneously. PSYCHIATRIC: Normal mood. SCREENINGS Diagnostics Labs: Results for orders placed or performed during the hospital encounter of 02/05/20 Urinalysis Result Value Ref Range Glucose, Ur Normal Normal (<70) mg/dL Total Protein, Urine 100 (A) Negative mg/dL Bilirubin Urine 1 (A) Negative mg/dL Urobilinogen, Urine 3 (A) Normal (0-1) mg/dL pH, Urine 6.0 5.0 - 8.0 NA Specific [place], Urine 1.014 1.005 - 1.030 NA Occult Blood,Urine >1.0 (A) Negative mg/dL Ketones, Urine Negative Negative mg/dL Nitrite, Urine Positive (A) Negative NA LEUKOCYTES, UA 500 (A) Negative Henok/uL Appearance Turbid (A) Clear NA Color, Urine Dark-Yellow (A) Lt. Yellow NA RBC, UA >100 (A) 0 - 2 /[HPF] WBC, UA >100 (A) 0 - 5 /[HPF] Squam Epithel, UA 6-10 (A) 3 - 5 /[HPF] Non-Squamous Epithelial 1 (A) Negative /[HPF] Bacteria, UA Few (A) Negative /[HPF] Mucous Threads Few Negative /[LPF] Hyaline Casts, UA Negative Negative /[LPF] WBC Clumps, Urine Many (A) Negative /[HPF] Radiographs: No results found. Procedures: ED Course and MDM In brief, Brianne Smith is a 24 y.o. female who presented to the emergency department For evaluation of burning with urination likely caused by urinary tract infection. Please see history of present illness for further details. Urinalysis was ordered for this patient which showed positive leukocytes and nitrites in her urine. Patient be treated with an antibiotic here in the emergency room as well as Pyridium for her burning with urination. Patient be given an outpatient course of antibiotics and a referral to her primary care provider since she does not have one. Blood work is not warranted at this time given the patient's normal vital signs as well as no back pain and otherwise healthy appearance. Vital signs and nursing notes have been reviewed for this patient. Patient was educated on their diagnosis/condition. Patient understood the severity of their situation. The patient agreed with the plan and had no further questions at this time. she also requested a medication because she gets these infections after having antibiotics. Patient was given a prescription for Diflucan and told to use it if she starts expressing symptoms. ED Medication Orders (From admission, onward) Start Ordered Status Ordering Provider 02/05/20 0902/05/20 0858 phenazopyridine (PYRIDIUM) tablet 200 mg ONCE Ordered ANAT VALLADARES 02/05/20 0902/05/20 0858 nitrofurantoin (macrocrystal-monohydrate ) (MACROBID) capsule 100 mg ONCE Ordered ANAT VALLADARES Final Impression 1. Acute cystitis with hematuria 2. Burning with urination DISPOSITION Decision To Discharge 02/05/2020 08:58:13 AM Patient seen independently with an Emergency Medicine attending available for supervision. (Please note that portions of this note may have been completed with a voice recognition program. Efforts were made to edit the dictations but occasionally words aremis-transcribed.) KRANTHI Bee [employer] KRANTHI Bee 02/05/20 1409 KRANTHI Bee 02/05/20 1410 Normal [facility] Urinalysison 02-05-2020 Appearance (U) Turbid Abnormal Clear NA [facility] [place] Comment on above: . Bacteria, UA Few Abnormal Negative /[HPF] [facility] [place] Comment on above: . Bilirubin Urine 1 mg/dL Abnormal Negative [facility] [place] Comment on above: . Color (U) Dark-Yellow Abnormal Lt. Yellow NA [facility] [place] Comment on above: . Glucose, Ur Normal Normal (<70) mg/dL [facility] [place] Comment on above: . Hyaline Casts, UA Negative Negative /[LPF] [place], [place] Comment on above: . Interpretation and review of laboratory results Abnormal [place], [place] Ketones Ql (U) Negative Negative mg/dL [place] Comment on above: . LEUKOCYTES, UA 500 Abnormal Negative Henok/uL [place] Comment on above: . Mucous Threads Few Negative /[LPF] [place] Comment on above: . Nitrite, Urine Positive Abnormal Negative NA [place] Comment on above: . Non-Squamous Epithelial 1 /[HPF] Abnormal Negative [place] Comment on above: . Occult Blood,Urine >1.0 Abnormal Negative mg/dL [place], [place] Comment on above: . pH (U) 6.0 [pH] [place] Comment on above: . Protein (U) [Mass/Vol] 100 mg/dL Abnormal Negative [place] Comment on above: . RBC (U) [#/Vol] /uL Abnormal 0 - 2 /[HPF] [place] Comment on above: . Specific [place], Urine 1.014 [place], [place] Comment on above: . Squam Epithel, UA 6-10 Abnormal 3 - 5 /[HPF] [place] Comment on above: . Urobilinogen, Urine 3 mg/dL Abnormal Normal (0-1) [place] Comment on above: . WBC Clumps, Urine Many Abnormal Negative /[HPF] [place], [place] Comment on above: . WBC, UA >100 Abnormal 0 - 5 /[HPF] [place] Comment on above: . Test Performed by [facility], [address] [place] [id number] [place], [place] Vital Signs Date Time Vital Sign Value Performing Clinician Facility 05-31-2022 03:06-0500 Body weight 79.[address] MINDI PALAFOX . [facility] Comment on above: Performed By: #### AFPMAT #### [facility] [address] [address] [address] Gita Graham 02-08-2022 10:56-0400 Body height 154.9 cm Renata Mihalik DO Work Phone: [facility] 02-08-2022 10:56-0400 Body weight 79.38 kg Renata Mihalik DO Work Phone: [facility] 02-08-2022 10:56-0400 Diastolic blood pressure 80 mm[Hg] Renata Mihalik DO Work Phone: [facility] 02-08-2022 10:56-0400 Systolic blood pressure 122 mm[Hg] Renata Mihalik DO Work Phone: [facility] 11-01-2021 08:07-0400 Body height 154.9 cm La Zuponcic DO Work Phone: [facility] 11-01-2021 08:07-0400 Body weight 75.03 kg La Zuponcic DO Work Phone: [facility] 11-01-2021 08:07-0400 Diastolic blood pressure 84 mm[Hg] La Zuponcic DO Work Phone: [facility] 11-01-2021 08:07-0400 Systolic blood pressure 126 mm[Hg] La Zuponcic DO Work Phone: [facility] 08-10-2021 11:45-0500 Body height 154.9 cm Renata Mihalik DO Work Phone: [facility] 08-10-2021 11:45-0500 Body weight 75.75 kg Renata Mihalik DO Work Phone: [facility] 08-10-2021 11:45-0500 Diastolic blood pressure 78 mm[Hg] Renata Mihalik DO Work Phone: [facility] 08-10-2021 11:45-0500 Systolic blood pressure 116 mm[Hg] Renata Mihalik DO Work Phone: [facility] 08-17-2020 16:48-0400 Pulse (Heart Rate) 89 /min Abi CHARLESA Work Phone: 08-17-2020 16:48-0400 Pulse Oximetry 98 % Abi Gagnon [employer] Work Phone: 08-17-2020 16:48-0400 Respiratory Rate 16 /min Abi Gagnon [employer] Work Phone: 08-17-2020 14:37-0400 BP Diastolic 84 mm[Hg] Abi Gagnon [employer] Work Phone: 08-17-2020 14:37-0400 BP Systolic 120 mm[Hg] Abi Gagnon [employer] Work Phone: 08-17-2020 09:47-0400 BMI (Body Mass Index) 32.5 kg/m2 Abi Gagnon [employer] Work Phone: 08-17-2020 09:47-0400 Body Temperature 98.4 [degF] Abi Gagnon [employer] Work Phone: 08-17-2020 09:47-0400 Body weight 78.02 kg Abi Gagnon [employer] Work Phone: 08-17-2020 09:47-0400 Height 154.9 cm Abi [employer] Work Phone: 02-05-2020 08:37-0400 Body Temperature 98.2 [degF] [employer] 02-05-2020 08:37-0400 BP Diastolic 77 mm[Hg] [employer] 02-05-2020 08:37-0400 BP Systolic 124 mm[Hg] [employer] , [employer] 02-05-2020 08:37-0400 Pulse (Heart Rate) 82 /min [employer] 02-05-2020 08:37-0400 Pulse Oximetry 100 % [employer] 02-05-2020 08:37-0400 Respiratory Rate 16 /min [employer] Encounters Encounter Date Encounter Type Care Provider Facility Start: 05-15-2023 End: 05-15-2023 ambulatory RANDI RODRIGUEZ Not Available Start: 10-02-2022 End: 10-06-2022 Evaluation and management of inpatient DR MINDI PALAFOX . Facility: Start: 10-01-2022 End: 10-01-[address] ROSA HARRISON . Facility:[facility] Start: 09-27-2022 End: 09-27-[address] MINDI PALAFOX . Facility:[facility] Start: 09-27-2022 End: 09-27-[address] MINDI PALAFOX . Facility:[facility] Start: 09-24-2022 End: 09-24-[address] ROSA HARRISON . Facility:[facility] Start: 09-20-2022 End: 09-20-[address] MINDI PALAFOX . Facility:[facility] Start: 09-17-2022 End: 09-17-[address] ROSA HARRISON . Facility:[facility] Start: 07-25-2022 End: 07-26-2022 ambulatory MAISHA HUTCHINSON [facility] Start: 07-25-2022 End: 07-25-2022 Subsequent hospital visit by physician Kristen Simon MD Work Phone: [facility] Start: 07-21-2022 End: 07-22-[address] MINDI PALAFOX . Facility:[facility] Start: 07-03-2022 End: 07-04-[address] ELMO GOETZ Facility:[facility] Start: 06-05-2022 End: 06-06-[address] MINDI PALAFOX . Facility:[facility] Start: 05-28-2022 End: 05-29-[address] MINDI PALAFOX . Facility:[facility] Start: 04-07-2022 End: 04-08-[address] MINDI PALAFOX . Facility:[facility] Start: 03-22-2022 End: 03-23-[address] ELMO GOETZ Facility:[facility] Start: 03-08-2022 End: 03-08-[address] MINDI PALAFOX . Facility:[facility] Start: 03-08-2022 End: 03-09-[address] MINDI PALAFOX . Facility:[facility] Start: 03-01-2022 Telephone encounter Renata boucher DO Work Phone: [facility] Comment on above: Results; Appointment Start: 03-01-2022 End: 03-02-2022 ambulatory RENATA CLANCY Facility:[facility] Start: 02-08-2022 End: 02-08-2022 ambulatory RENATA CLANCY Facility:[facility] Start: 02-08-2022 End: 02-08-2022 Patient encounter procedure Renata Clancy DO Work Phone: [facility] Comment on above: PCOS (polycystic ova jim syndrome) (Primary Dx); Trichomoniasis Start: 11-07-2021 Telephone encounter La Holm DO Work Phone: [facility] Comment on above: Results Start: 11-01-2021 End: 11-01-2021 ambulatory LA HOLM Facility:[facility] Start: 11-01-2021 End: 11-01-2021 Patient encounter procedure La Soc DO Work Phone: [facility] Gynecology Comment on above: Vulvar itching (Prim cori Dx) Start: 09-12-2021 Telephone encounter Renata boucher DO Work Phone: [facility] Comment on above: Orders Start: 08-10-2021 End: 08-10-2021 ambulatory RENATA CLANCY Facility:[facility] Start: 08-10-2021 End: 08-10-2021 Patient encounter procedure Ultrasound [employer] Work Phone: [facility] Comment on above: Irregular menses PCOS (polycystic ova jim syndrome) (Primary Dx) Start: 07-10-2021 End: 07-11-2021 ambulatory RENATA CLANCY Facility:[facility] Start: 08-17-2020 End: 08-17-2020 Emergency department patient visit Abi Gagnon [facility] Emergency Dept Comment on above: Nausea and vomiting, intractability of vomiting not specified, unspecified vomiting type (Primary Dx); Hypokalemia Start: 06-15-2020 End: 06-15-2020 Subsequent hospital visit by physician Frida Smith Work Phone: [facility] Start: 06-09-2020 End: 06-09-2020 Subsequent hospital visit by physician Manju Hunter Work Phone: [facility] Start: 04-14-2020 End: 04-14-2020 Subsequent hospital visit by physician Frida Smith Work Phone: [facility] Start: 02-05-2020 End: 02-05-2020 Emergency department patient visit [facility] Emergency Dept Comment on above: Acute cystitis with hematuria (Primary Dx); Burning with urination Procedures Date Procedure Procedure Detail Performing Clinician Start: 10-03-2022 Delivery of Products of Conception, External Approach DR MINDI PALAFOX . Start: 10-03-2022 Drainage of Amniotic Fluid, Therapeutic from Products of Conception, Via Natural or Artificial Opening DR MINDI PALAFOX . Start: 10-03-2022 Repair Perineum Musc le, Open Approach DR MINDI PALAFOX . Start: 10-02-2022 Introduction of Horm one into Female Reproductive, Via Natural or Artificial Opening DR MINDI PALAFOX . Start: 03-01-2022 Antibody screen RENATA CLANCY Comment on above: Order Comment: Speci men Type: BLOOD SPECIMENOrdering Facility: [facility] Address: [address] [place] [address] Performed By: #### T SCR ####[facility] BLOOD BANKIA [id number] [place] [address] [place] Start: 08-17-2020 Potassium serum plas ma/whole blood Fay Velarde Work Phone: Start: 08-17-2020 ADD ON LAB TEST Yessy Velarde Work Phone: Start: 08-17-2020 Urnls dip stick/tabl et rgnt auto w/o microscopy Fay Velarde Work Phone: Start: 08-17-2020 Assay of lipase Yessy Velarde Work Phone: Start: 08-17-2020 Assay of magnesium Estella erin Velarde Work Phone: Start: 08-17-2020 Blood count complete auto&auto difrntl wbc Fay Duongshahab Work Phone: Start: 08-17-2020 Comprehensive metabo lic panel Fay Duongshahab Work Phone: Start: 02-05-2020 Urnls dip stick/tabl et rgnt auto w/o microscopy Anat Jennifer Work Phone: Plan of Treatment Date Care Activity Detail Author Start: 09-05-2022 End: 09-05-2022 Patient encounter procedure 09/05/2022 Routine Perinatology [facility] Start: 02-08-2022 End: 04-10-2022 T VAGINALIS AMPLIFICATION T VAGINALIS AMPLIFICATION Lab Routine Trichomoniasis Expected: 02/08/2022, Expires: 04/10/2022 [facility] Work Phone: Comment on above: Expected: 02/08/2022 , Expires: 04/10/2022 Start: 02-01-2022 Influenza vaccination [facility] Start: 01-01-2022 Influenza vaccination Flu vaccine (# 1) [facility] Start: 09-12-2021 End: 11-12-2021 PROGESTERONE BLD PROGESTERONE BLD Lab Routine PCOS (polycystic ovarian syndrome) Expected: 09/12/2021, Expires: 11/12/2021 [facility] Work Phone: Comment on above: Expected: 09/12/2021 , Expires: 11/12/2021 Start: 06-03-2021 DEPRESSION ASSESSMENT DEPRESSION ASS ESSMENT [facility] Start: 02-01-2021 Influenza vaccination INFLUENZA (#1) [facility] Start: 06-15-2020 End: 06-15-2020 Virtual Visit 06/15/2020 Virtual Visit [facility] Nabeel Frey DO [address] [facility], [facility] [address] [place] [address] [facility] Start: 06-14-2020 End: 06-14-2020 Virtual Visit 06/14/2020 Virtual Visit [facility] Abi Gagnon MD [address] [place] [address] [facility] Start: 03-16-2020 DTaP/Tdap/Td vaccine (7 - Td or Tdap) DTaP/Tdap/Td vaccine (7 - Td or Tdap) [facility] Start: 02-02-2020 Influenza vaccination Flu vaccine (# 1) [place], [place] Start: 2017 PAP TESTING PAP TESTING [facility] Start: 2017 Screening for malign ant neoplasm of cervix [facility] Start: 2015 DTaP/Tdap/Td vaccine (1 - Tdap) DTaP/Tdap/Td vaccine (1 - Tdap) [place] Start: 2015 Urine microalbumin profile DTAP,TDAP,TD (1 - Tdap) [facility] Start: 2014 HEPATITIS C SCREENING HEPATITIS C SC REENING [facility] Start: 2014 Hepatitis C screening Hepatitis C sc reen [facility] Start: 2014 HIV SCREENING HIV SCREENING [facility] Start: 2012 Screening for Chlamy stas trachomatis Chlamydia screen [place], [place] Start: 2011 HIV screening HIV screen [facility] Start: 2010 PEDS TO ADULT TRANSI TION ANNUAL ASSESSMENT PEDS TO ADULT TRANSITION ANNUAL ASSESSMENT [facility] Start: 2008 Adult depression screening assessment DEPRESSION SCREENING [facility] Start: 2008 Depression Screen Depression Screen [facility] Start: 2008 PEDS TO ADULT TRANSI TION INITIAL DISCUSSION PEDS TO ADULT TRANSITION INITIAL DISCUSSION [facility] Start: 2007 HPV vaccine (1 - 2-d ose series) HPV vaccine (1 - 2-dose series) [facility] Start: 2001 COVID-19 VACCINE (#1) COVID-19 VACCI NE (#1) [facility] Start: 2001 COVID-19 VACCINE (1) COVID-19 VACCIN E (1) [facility] Start: 1997 Varicella vaccine (1 of 2 - 2-dose childhood series) Varicella vaccine (1 of 2 - 2-dose childhood series) [place] Start: 04-28-1997 COVID-19 VACCINE (#1) COVID-19 VACCI NE (#1) [facility] Start: 1996 HEPATITIS B (1 of 3 - 3-dose series) HEPATITIS B (1 of 3 - 3-dose series) [facility] Start: 1996 Hepatitis C screening Hepatitis C sc vijay [place], [place] End: 02-05-2020 Add On Lab Test Add On Lab Test Lab STAT One Time for 1 Occurrences starting 02/05/2020 until 02/05/2020 [place] Comment on above: One Time for 1 Occur rences starting 02/05/2020 until 02/05/2020 Chlamydia trachomatis+Neisseria gonorrhoeae DNA [Presence] in Unspecified specimen by PADMINI with probe detection GC/CHLAMYDIA DNA DET Lab Routine Vulvar itching Ordered: 11/01/2021 [facility] Work Phone: Comment on above: Ordered: 11/01/2021 End: 07-25-2022 [facility] A9 TITER [employer] Phone: Comment on above: Once for 1 Occurrenc es starting 07/25/2022 until 07/25/2022 End: 07-25-2022 Cytomegalovirus Antibody, IgG [employer] Phone: Comment on above: Once for 1 Occurrenc es starting 07/25/2022 until 07/25/2022 End: 07-25-2022 Cytomegalovirus Antibody, IgM [employer] Phone: Comment on above: Once for 1 Occurrenc es starting 07/25/2022 until 07/25/2022 FUNGAL SMEAR FUNGAL SMEAR Microbiology Routine Vulvar itching Ordered: 11/01/2021 [facility] Work Phone: Comment on above: Ordered: 11/01/2021 End: 07-25-2022 Parvovirus B19 Antibody, IgG and IgM [employer] Phone: Comment on above: Once for 1 Occurrenc es starting 07/25/2022 until 07/25/2022 RAPID BACT VAGINOSIS (AK) RAPID BACT VAGINOSIS (AK) Lab Routine Vulvar itching Ordered: 11/01/2021 [facility] Work Phone: Comment on above: Ordered: 11/01/2021 End: 07-25-2022 Toxoplasma Gondii Antibody, IgG [employer] Work Phone: Comment on above: Once for 1 Occurrenc es starting 07/25/2022 until 07/25/2022 End: 07-25-2022 Toxoplasma Gondii Antibody, IgM [facility] [employer] Work Phone: Comment on above: Once for 1 Occurrenc es starting 07/25/2022 until 07/25/2022 Trichomonas vaginali s Ag [Presence] in Genital specimen by Immunoassay TRICHOMONAS PREP/ANTIGEN Microbiology Routine Vulvar itching Ordered: 11/01/2021 [facility] Work Phone: Comment on above: Ordered: 11/01/2021 Urine test visual color cmprsn meths HCG QUAL UR B/O Lab Routine PCOS (polycystic ovarian syndrome) Ordered: 02/08/2022 [facility] Work Phone: Comment on above: Ordered: 02/08/2022 [facility] Payers Date Payer Category Payer Medicaid [employer] [place] [place] [id number] 2019-Present [phone] [place] [address] Medicaid [id number] 2019 Medicaid [employer] [place] [place] [id number] 2019-Present [phone] [place] [address] [id number] Medicaid [id number] 1996 Unknown [id number] 1996 Unknown [id number] 1996 Unknown [id number] 1996 Unknown [id number] [id number] 1996 Unknown [id number] [id number] 1996 Unknown [id number] [id number] 1996 Unknown [id number] [id number] 1996 Unknown [id number] 2.16.840.1.755007.3.579.2.593 1996 Unknown [id number] 2.16.840.1.403895.3.579.2.593 1996 Unknown [id number] 2.16.840.1.794013.3.579.2.593 1996 Unknown [id number] 2.16.840.1.217289.3.579.2.593 1996 Unknown [id number] 2.16.840.1.390689.3.579.2.593 1996 Unknown [id number] 2.16.840.1.997545.3.579.2.593 1996 Unknown [id number] 2.16.840.1.631855.3.579.2.593 1996 Unknown [id number] 2.16.840.1.253454.3.579.2.593 1996 Unknown [id number] [id number] 1996 Unknown [id number] [id number] 1959 Medicaid [id number]. [id number] Unknown [id number] Social History Date Type Detail Facility Tobacco smoking stat us NHIS Unknown if ever smoked [facility] Start: 1996 [facility] Start: 07-31-2021 End: 03-01-2022 Exposure to SARS-CoV-2 (event) [facility] sure [facility] Start: 04-14-2020 End: 08-17-2020 Tobacco smoking status NHIS Never smoker [facility] Start: 04-14-2020 End: 07-25-2022 Alcohol intake [facility] Start: 04-14-2020 History SDOH [facility] Frequency [facility] Start: 08-17-2020 End: 02-08-2022 Tobacco use and exposure Never used [employer] Work Phone: Start: 08-17-2020 Alcohol Comment on holidays an d birthdays only [employer] Work Phone: Start: 10-21-2021 End: 10-31-2021 Exposure to SARS-CoV-2 (event) Unable to assess [facility] Start: 01-31-2022 KARISHMA Marin [facility] [employer] Work Phone: Clinical Notes 07-10-2021 to 03-01-2022 Telephone Encounter - Poly Stapleton RN - 03/01/2022 12:53 PM Elena Clancy DO - 02/08/2022 10:45 AM EDTTelephone Encounter - Gladys Valdovinos LPN - 11/07/2021 2:02 PM EDTPatient Instructions Note Date & Type Note Facility 03-01-2022 Miscellaneous Notes Aware of results and transferred to [facility]. Poly Stapleton RN HC,031 (6-7 wk) LMP:8.17.2021 documented in this encounter [facility] 02-08-2022 Note HNO ID: [id number] Author: Renata Clancy, DO Service: ? Author Type: Physician Type: Progress Notes Filed: 02/10/2022 9:39 AM Note Text: SERVICE DATE: 02/08/2022 SERVICE TIME: 11:22 AM Subjective CHIEF COMPLAINT: PCOS 6 month f/u HPI: This is a 26 year old female who presents with PCOS 6 month f/u. Patient's last menstrual period was 12/14/2021 (exact date). Bled for 5 days. Itching resolved after treatment of her and her partner for Trichomoniasis. Most recent test 5 days after period was suppose to start was negative. Taken on 01/22/2022. Still would like to conceive. Ideally, in 1-2 years. Does not desire right now. Reports she is having unprotected intercourse for 2 years. Partner has never completed semen analysis. Denies unwanted hair growth. Does not want to be on control. PAST MEDICAL HISTORY Diagnosis Date Herpes simplex type 2 infection PAST SURGICAL HISTORY Procedure Laterality Date NONE No family history on file. Social History Tobacco Use Smoking status: Never Smokeless tobacco: Never (Not in a hospital admission) ALLERGIES No Known Allergies COMPLETE REVIEW OF SYSTEMS: PAIN ASSESSMENT: Negative for pain, history of chronic pain, or current treatment for a chronic pain condition. GENERAL: No weight loss, malaise or fevers HEENT: Negative for frequent or significant headaches, No changes in hearing or vision, no nose bleeds or other nasal problems NECK: Negative for lumps, goiter, pain and significant neck swelling RESPIRATORY: Negative for cough, hemoptysis, wheezing, COPD, dyspnea or shortness of breath CARDIOVASCULAR: Negative for chest pain, leg swelling, hypertension, CHF or palpitations GI: No nausea, vomiting, or diarrhea SENSOR SPECIALIST: Positive for oligomenorrhea. Negative for abnormal vaginal discharge MUSCULOSKELETAL: Negative for joint pain or swelling, back pain or muscle pain PSYCH: Negative for sleep disturbance, mood disorder and recent psychosocial stressors HEMATOLOGY/LYMPHOLOGY: Negative for prolonged bleeding, bruising easily or swollen nodes ENDOCRINE: Negative for cold or heat intolerance, polyuria, polydipsia and goiter Objective PHYSICAL EXAM: BP 122/80 Ht 5' 1 (1.549 m) Wt 175 lb (79.4 kg) LMP 12/14/2021 (Exact Date) BMI 33.07 kg/m? Physical Exam Performed: GENERAL: Alert, no distress, cooperative SKIN: Skin color, texture, turgor normal. No rashes or lesions. HEAD/SINUSES: No significant findings EYES: PERRLA, EOMI NOSE: Wears mask NECK: Supple BACK: Back symmetric, Normal curvature, ROM normal, No CVAT. LUNGS: Lungs clear to auscultation, Good diaphragmatic excursion CARDIAC: Normal S1 and S2; No murmurs. ABDOMEN: Abdomen soft, non-tender, BS normal, No masses or organomegaly EXTREMITIES: Extremities normal, no deformities, edema, clubbing or skin discoloration. Good capillary refill., No ulcers ASSESSMENT/PLAN: 1. PCOS (polycystic ovarian syndrome) - ICD9: 256.4, ICD10: E28.2 (primary diagnosis) - Meets PCOS criteria based on oligomenorrhea and polycystic appearing ovaries. - Does not want to be on control. LMP 12/14/2021. Still would like to conceive in 1-2 years. - Ordered Provera today to induce menses as the patient is missing more than 3 periods in a year and she does not want contraception. - Advised pt to discuss possible semen analysis with partner. - HCG QUAL UR B/O - MEDROXYPROGESTERONE 10 MG TABLET 2. Trichomoniasis - ICD9: 131.9, ICD10: A59.9 - Symptoms resolved. Completed treatment. - T VAGINALIS AMPLIFICATION RTC 6 months f/u for PCOS Scribe Attestation: By signing my name below, I, Randi St, attest that this documentation has been prepared under the direction and in the presence of Renata Clancy DO Electronically Signed: Hunter Greene. February 08, 2022 11:27 AM. I agree with the Chief Complaint, ROS, and Past Histories independently gathered by the clinical computer network support specialist and the remaining scribed note accurately describes my personal service to the patient. SIGNATURE: Renata Clancy DO DATE of SERVICE: 02/08/22 TIME of SERVICE: 11:27 AM [facility] 02-08-2022 History of Present illness Narrative SERVICE DATE: 02/08/2022 SERVICE TIME: 11:22 AM Subjective CHIEF COMPLAINT: PCOS 6 month f/u HPI: This is a 26 year old female who presents with PCOS 6 month f/u. Patient's last menstrual period was 12/14/2021 (exact date). Bled for 5 days. Itching resolved after treatment of her and her partner for Trichomoniasis. Most recent test 5 days after period was suppose to start was negative. Taken on 01/22/2022. Still would like to conceive. Ideally, in 1-2 years. Does not desire right now. Reports she is having unprotected intercourse for 2 years. Partner has never completed semen analysis. Denies unwanted hair growth. Does not want to be on control. PAST MEDICAL HISTORY Diagnosis Date Herpes simplex type 2 infection PAST SURGICAL HISTORY Procedure Laterality Date NONE No family history on file. Social History Tobacco Use Smoking status: Never Smokeless tobacco: Never (Not in a hospital admission) ALLERGIES No Known Allergies COMPLETE REVIEW OF SYSTEMS: PAIN ASSESSMENT: Negative for pain, history of chronic pain, or current treatment for a chronic pain condition. GENERAL: No weight loss, malaise or fevers HEENT: Negative for frequent or significant headaches, No changes in hearing or vision, no nose bleeds or other nasal problems NECK: Negative for lumps, goiter, pain and significant neck swelling RESPIRATORY: Negative for cough, hemoptysis, wheezing, COPD, dyspnea or shortness of breath CARDIOVASCULAR: Negative for chest pain, leg swelling, hypertension, CHF or palpitations GI: No nausea, vomiting, or diarrhea SENSOR SPECIALIST: Positive for oligomenorrhea. Negative for abnormal vaginal discharge MUSCULOSKELETAL: Negative for joint pain or swelling, back pain or muscle pain PSYCH: Negative for sleep disturbance, mood disorder and recent psychosocial stressors HEMATOLOGY/LYMPHOLOGY: Negative for prolonged bleeding, bruising easily or swollen nodes ENDOCRINE: Negative for cold or heat intolerance, polyuria, polydipsia and goiter Objective PHYSICAL EXAM: BP 122/80 Ht 5' 1 (1.549 m) Wt 175 lb (79.4 kg) LMP 12/14/2021 (Exact Date) BMI 33.07 kg/m Physical Exam Performed: GENERAL: Alert, no distress, cooperative SKIN: Skin color, texture, turgor normal. No rashes or lesions. HEAD/SINUSES: No significant findings EYES: PERRLA, EOMI NOSE: Wears mask NECK: Supple BACK: Back symmetric, Normal curvature, ROM normal, No CVAT. LUNGS: Lungs clear to auscultation, Good diaphragmatic excursion CARDIAC: Normal S1 and S2; No murmurs. ABDOMEN: Abdomen soft, non-tender, BS normal, No masses or organomegaly EXTREMITIES: Extremities normal, no deformities, edema, clubbing or skin discoloration. Good capillary refill., No ulcers ASSESSMENT/PLAN: 1. PCOS (polycystic ovarian syndrome) - ICD9: 256.4, ICD10: E28.2 (primary diagnosis) - Meets PCOS criteria based on oligomenorrhea and polycystic appearing ovaries. - Does not want to be on control. LMP 12/14/2021. Still would like to conceive in 1-2 years. - Ordered Provera today to induce menses as the patient is missing more than 3 periods in a year and she does not want contraception. - Advised pt to discuss possible semen analysis with partner. - HCG QUAL UR B/O - MEDROXYPROGESTERONE 10 MG TABLET 2. Trichomoniasis - ICD9: 131.9, ICD10: A59.9 - Symptoms resolved. Completed treatment. - T VAGINALIS AMPLIFICATION RTC 6 months f/u for PCOS Scribe Attestation: By signing my name below, I, Randi St, attest that this documentation has been prepared under the direction and in the presence of Renata Clancy DO Electronically Signed: Hunter Greene. February 08, 2022 11:27 AM. I agree with the Chief Complaint, ROS, and Past Histories independently gathered by the clinical computer network support specialist and the remaining scribed note accurately describes my personal service to the patient. SIGNATURE: Renata Clancy DO DATE of SERVICE: 02/08/22 TIME of SERVICE: 11:27 AM documented in this encounter [facility] 11-07-2021 Miscellaneous Notes Patient notified of results/ recommendations. Patient stated she did not relies that the medication was to be taken 4 at once and has been taking one daily. Patient stated she is currently no longer experiencing any symptoms. Patient advised to take last dose. Patients testing is positive for Trichomoniasis, a sexually transmitted disease. When this test is positive, it is correct 83% of the time. She already has flagyl at from yesterday, but will need to take it differently to treat trich - 4 pills, to be taken at one time. She should eat beforehand as they can cause stomach upset, and should not drink alcohol for 48 - 72 hours due interactions with alcohol which can lead to severe hangovers or life threatening reactions with alcohol. Gladys Valdovinos LPN documented in this encounter [facility] 11-01-2021 Note HNO ID: [id number] Author: La Holm, DO Service: ? Author Type: Physician Type: Progress Notes Filed: 11/01/2021 8:46 AM Note Text: SERVICE DATE: 11/01/2021 SERVICE TIME: 8:35 AM Subjective CHIEF COMPLAINT: Vaginal infection HPI: This is a 26 year old female who presents with vaginal infection Generalized vuvlar and vaginal infection all over Started 1 week ago Had an E visit one week ago and was given diflucan without relief Looked for signs of her HSV with a mirror at home but did not see anything like this No immediate concern for STIs Presents now for evaluation PAST MEDICAL HISTORY Diagnosis Date - Herpes simplex type 2 infection PAST SURGICAL HISTORY Procedure Laterality Date - NONE History reviewed. No pertinent family history. Social History Tobacco Use - Smoking status: Never Smoker - Smokeless tobacco: Never Used Substance Use Topics - Alcohol use: Not on file - Drug use: Not on file (Not in a hospital admission) ALLERGIES No Known Allergies COMPLETE REVIEW OF SYSTEMS: No fevers or chills No dysuria, urgnency No vaginal discharge No Nausea/vomiting No dyspareunia No abdominal pain No back pain Objective PHYSICAL EXAM: 11/01/21 0807 BP: 126/84 Weight: 165 lb 6.4 oz (75 kg) Height: 5' 1 (1.549 m) Physical Exam Performed: GENERAL: Alert, no distress, cooperative SKIN: Skin color, texture, turgor normal. No rashes or lesions. HEAD/SINUSES: No significant findings, wears mask EYES: PERRLA, EOMI ABDOMEN: Abdomen soft, non-tender, BS normal, No masses or organomegaly EXTREMITIES: Extremities normal, no deformities, edema, clubbing or skin discoloration. Good capillary refill., No ulcers NEURO: Gait normal. Reflexes normal and symmetric. Sensation grossly intact, Cranial nerves II-XII intact GENITALIA FEMALE: Normal external genitalia, Normal vagina and normal vaginal tone, Normal cervix, Normal uterus, size and consistency, Normal adnexa without tenderness, thin homogenous discharge c/w BV ASSESSMENT/PLAN: 1. Vulvar itching - ICD9: 698.1, ICD10: L29.2 - FUNGAL SMEAR - TRICHOMONAS PREP/ANTIGEN - RAPID BACT VAGINOSIS (AK) - GC/CHLAMYDIA DNA DET La Holm DO [facility] 11-01-2021 Miscellaneous Notes Addended by: LA HOLM on: 11/01/2021 08:47 AM Modules accepted: Orders documented in this encounter [facility] 11-01-2021 Instructions La Holm DO - 11/01/2021 8:46 AM EDT Please call the office before going to the hospital. If you are , go to the ER at the [facility] [place]. Do not go to the outlying ER s ([facility] or [place]). If you need to go to an ER and cannot or will not go downtown, please use one of [facility] ER s (not [facility], [place] or [facility]). documented in this encounter [facility] 11-01-2021 History of Present illness Narrative SERVICE DATE: 11/01/2021 SERVICE TIME: 8:35 AM Subjective CHIEF COMPLAINT: Vaginal infection HPI: This is a 26 year old female who presents with vaginal infection Generalized vuvlar and vaginal infection all over Started 1 week ago Had an E visit one week ago and was given diflucan without relief Looked for signs of her HSV with a mirror at home but did not see anything like this No immediate concern for STIs Presents now for evaluation PAST MEDICAL HISTORY Diagnosis Date Herpes simplex type 2 infection PAST SURGICAL HISTORY Procedure Laterality Date NONE History reviewed. No pertinent family history. Social History Tobacco Use Smoking status: Never Smoker Smokeless tobacco: Never Used Substance Use Topics Alcohol use: Not on file Drug use: Not on file (Not in a hospital admission) ALLERGIES No Known Allergies COMPLETE REVIEW OF SYSTEMS: No fevers or chills No dysuria, urgnency No vaginal discharge No Nausea/vomiting No dyspareunia No abdominal pain No back pain Objective PHYSICAL EXAM: 11/01/21 0807 BP: 126/84 Weight: 165 lb 6.4 oz (75 kg) Height: 5' 1 (1.549 m) Physical Exam Performed: GENERAL: Alert, no distress, cooperative SKIN: Skin color, texture, turgor normal. No rashes or lesions. HEAD/SINUSES: No significant findings, wears mask EYES: PERRLA, EOMI ABDOMEN: Abdomen soft, non-tender, BS normal, No masses or organomegaly EXTREMITIES: Extremities normal, no deformities, edema, clubbing or skin discoloration. Good capillary refill., No ulcers NEURO: Gait normal. Reflexes normal and symmetric. Sensation grossly intact, Cranial nerves II-XII intact GENITALIA FEMALE: Normal external genitalia, Normal vagina and normal vaginal tone, Normal cervix, Normal uterus, size and consistency, Normal adnexa without tenderness, thin homogenous discharge c/w BV ASSESSMENT/PLAN: 1. Vulvar itching - ICD9: 698.1, ICD10: L29.2 - FUNGAL SMEAR - TRICHOMONAS PREP/ANTIGEN - RAPID BACT VAGINOSIS (AK) - GC/CHLAMYDIA DNA DET La Holm DO documented in this encounter [facility] 09-12-2021 Miscellaneous Notes Progesterone order in. Will need drawn on day 3 of next menses. Thanks. Renata Clancy DO Patient calling nurse triage line stating she was told by her provider back in august's visit to call when she starts her menses to get lab work done to see if she ovulates. Patient started menses on Saturday09/06/21. Please place order and when she should get her labs drawn. Gladys Valdovinos LPN documented in this encounter [facility] 08-10-2021 Note HNO ID: [id number] Author: Renata Clancy, DO Service: ? Author Type: Physician Type: Progress Notes Filed: 08/12/2021 10:13 PM Note Text: SERVICE DATE: 08/10/2021 SERVICE TIME: 11:59 AM Subjective CHIEF COMPLAINT: HPI: This is a 26 year old female who presents for TVUS follow up for irregular menses. LMP 06/04/21 Last unprotected intercourse yesterday. Last took home test 1 week ago. Negative. Believes she stopped OCPs in March or April. Normal appearing anteverted uterus that measures 67 mm x 26 mm x 36 mm. The endometrium measures 8.2 mm. Both ovaries contain multiple small follicular cysts at the periphery of the ovarian stroma. This finding is suggestive of polycystic ovarian syndrome. No adnexal masses were observed. There is no free fluid visualized in the peritoneal cavity. Denies any other changes since last seen. PAST MEDICAL HISTORY Diagnosis Date - Herpes simplex type 2 infection PAST SURGICAL HISTORY Procedure Laterality Date - NONE History reviewed. No pertinent family history. Social History Tobacco Use - Smoking status: Never Smoker - Smokeless tobacco: Never Used Substance Use Topics - Alcohol use: Not on file - Drug use: Not on file (Not in a hospital admission) ALLERGIES No Known Allergies COMPLETE REVIEW OF SYSTEMS: PAIN ASSESSMENT: Negative for pain, history of chronic pain, or current treatment for a chronic pain condition. GENERAL: No weight loss, malaise or fevers HEENT: Negative for frequent or significant headaches, No changes in hearing or vision, no nose bleeds or other nasal problems NECK: Negative for lumps, goiter, pain and significant neck swelling RESPIRATORY: Negative for cough, hemoptysis, wheezing, COPD, dyspnea or shortness of breath CARDIOVASCULAR: Negative for chest pain, leg swelling, hypertension, CHF or palpitations GI: No nausea, vomiting, or diarrhea : No history of dysuria, frequency or incontinence SENSOR SPECIALIST: Positive for irregular menses MUSCULOSKELETAL: Negative for joint pain or swelling, back pain or muscle pain SKIN: Negative for lesions, rash, and itching PSYCH: Negative for sleep disturbance, mood disorder and recent psychosocial stressors HEMATOLOGY/LYMPHOLOGY: Negative for prolonged bleeding, bruising easily or swollen nodes ENDOCRINE: Negative for cold or heat intolerance, polyuria, polydipsia and goiter Objective PHYSICAL EXAM: 08/10/21 1145 BP: 116/78 Weight: 167 lb (75.8 kg) Height: 5' 1 (1.549 m) Physical Exam Performed: GENERAL: Alert, no distress, cooperative, Tearful SKIN: Skin color, texture, turgor normal. No rashes or lesions. HEAD/SINUSES: No significant findings EYES: PERRLA, EOMI EARS: External ears normal, canals clear NOSE: Wears mask NECK: Supple BACK: Back symmetric, Normal curvature LUNGS: Speaking in full sentences, breathing nonlabored CARDIAC: No bilateral JVD ABDOMEN: Normal abdomen EXTREMITIES: Extremities normal, no deformities, edema, clubbing or skin discoloration. Good capillary refill., No ulcers ASSESSMENT/PLAN: 1. PCOS (polycystic ovarian syndrome) - ICD9: 256.4, ICD10: E28.2 - Patient unsure when she discontinued OCPs, approximately 4 months ago. Having irregular periods - Labs reviewed and WNL - TVUS reviewed: Impression Normal appearing anteverted uterus that measures 67 mm x 26 mm x 36 mm. The endometrium measures 8.2 mm. Both ovaries contain multiple small follicular cysts at the periphery of the ovarian stroma. This finding is suggestive of polycystic ovarian syndrome. No adnexal masses were observed. There is no free fluid visualized in the peritoneal cavity. - Patient desires - Discussed ovulation induction, also discussed some women with PCOS do not have difficulty gettting - At this time, patient would like to continue trying to conceive naturally. Will call when she starts her next period and will order day 3 progesterone to assess if she ovulated - Patient agreeable to plan of care. Questions answered. Discussed implications of diagnosis of PCOS - Encouraged PNV RTC 6 months for PCOS follow up if not already Renata Clancy DO [facility] 08-10-2021 Instructions Renata Clancy DO - 08/10/2021 12:07 PM EST Polycystic Ovary Syndrome Women with polycystic ovary syndrome (PCOS) have a hormonal imbalance that interferes with normal reproductive processes. PCOS usually starts at puberty and is associated with irregular periods and other hormone related symptoms. The most concerning issues with PCOS are the increase of infertility, the risk of developing type 2 diabetes and cardiovascular disease, and the higher risk of developing endometrial (uterine) cancer at an early age. What are the symptoms of PCOS? Irregular menstrual periods, or no menstrual periods at all Decreased frequency or complete lack of ovulation, resulting in problems with infertility Obesity, often specifically characterized by weight gain in the upper body and abdomen Oily skin and hair and persistent acne into adulthood Abnormal hair growth, in a masculine distribution (facial hair, heavy hair growth on arms, chest, and abdomen) Tendency to develop type 2 diabetes What causes PCOS syndrome? Research is ongoing to uncover a cause for PCOS. There is evidence that shows a link between certain forms of PCOS and family history, suggesting a genetic basis for the condition. How is PCOS diagnosed? Most cases can be diagnosed with a thorough evaluation of your medical history and symptoms, as well as a physical exam. A blood test may be required to measure the levels of various hormones. In some cases, an ultrasound of the ovaries may help with diagnosis. How is PCOS treated? Although PCOS can be treated with medications, treatment is often highly dependent on your goals and your symptoms. If you want to become , you may need the assistance of oral or injected fertility medications. If you do not want to become , you may consider control pills to prevent and regulate periods. Other symptoms such as unwanted hair growth, acne, obesity, and diabetes should be managed by specialists in those areas. Specific treatment options should be discussed with your physician. How can PCOS be prevented? There is no known prevention for PCOS. However, through proper nutrition and weight management many women with polycystic ovary syndrome can avoid developing diabetes and cardiovascular problems. How can I improve my chances of conceiving if I have PCOS? While specific fertility issues should be addressed with your physician, there are some general healthcare guidelines that may improve your chances of becoming : Folic acid (400 mcg. supplement a day, with a diet rich in folic acid, including leafy green vegetables, dried beans, liver, and citrus fruits) Limit caffeine (Fewer than two caffeinated beverages per day) Eat well (Healthy well-balanced diet) Exercise and maintain a healthy weight (Maintain a normal exercise routine, 20 to 30 minutes per day, 4 to 5 times per week.) This information is provided by your physician and the [facility] Journal of Medicine and the [facility] [email or web address]. This information has not been designed to replace a physician's medical assessment and medical judgment. Copyright 1994- 2012 [employer] [facility]. All rights reserved This information is provided by the [facility] and is not intended to replace the medical advice of your doctor or health care provider. Please consult your health care provider for advice about a specific medical condition. For additional health information, please contact the [facility] Information at the [facility] or toll-free extension [phone]. If you prefer, you may visit [email or web address] or [email or web address]. This document was last reviewed on: 2009 index#[id number] documented in this encounter [facility] 08-10-2021 History of Present illness Narrative SERVICE DATE: 08/10/2021 SERVICE TIME: 11:59 AM Subjective CHIEF COMPLAINT: HPI: This is a 26 year old female who presents for TVUS follow up for irregular menses. LMP 06/04/21 Last unprotected intercourse yesterday. Last took home test 1 week ago. Negative. Believes she stopped OCPs in March or April. Normal appearing anteverted uterus that measures 67 mm x 26 mm x 36 mm. The endometrium measures 8.2 mm. Both ovaries contain multiple small follicular cysts at the periphery of the ovarian stroma. This finding is suggestive of polycystic ovarian syndrome. No adnexal masses were observed. There is no free fluid visualized in the peritoneal cavity. Denies any other changes since last seen. PAST MEDICAL HISTORY Diagnosis Date Herpes simplex type 2 infection PAST SURGICAL HISTORY Procedure Laterality Date NONE History reviewed. No pertinent family history. Social History Tobacco Use Smoking status: Never Smoker Smokeless tobacco: Never Used Substance Use Topics Alcohol use: Not on file Drug use: Not on file (Not in a hospital admission) ALLERGIES No Known Allergies COMPLETE REVIEW OF SYSTEMS: PAIN ASSESSMENT: Negative for pain, history of chronic pain, or current treatment for a chronic pain condition. GENERAL: No weight loss, malaise or fevers HEENT: Negative for frequent or significant headaches, No changes in hearing or vision, no nose bleeds or other nasal problems NECK: Negative for lumps, goiter, pain and significant neck swelling RESPIRATORY: Negative for cough, hemoptysis, wheezing, COPD, dyspnea or shortness of breath CARDIOVASCULAR: Negative for chest pain, leg swelling, hypertension, CHF or palpitations GI: No nausea, vomiting, or diarrhea : No history of dysuria, frequency or incontinence SENSOR SPECIALIST: Positive for irregular menses MUSCULOSKELETAL: Negative for joint pain or swelling, back pain or muscle pain SKIN: Negative for lesions, rash, and itching PSYCH: Negative for sleep disturbance, mood disorder and recent psychosocial stressors HEMATOLOGY/LYMPHOLOGY: Negative for prolonged bleeding, bruising easily or swollen nodes ENDOCRINE: Negative for cold or heat intolerance, polyuria, polydipsia and goiter Objective PHYSICAL EXAM: 08/10/21 1145 BP: 116/78 Weight: 167 lb (75.8 kg) Height: 5' 1 (1.549 m) Physical Exam Performed: GENERAL: Alert, no distress, cooperative, Tearful SKIN: Skin color, texture, turgor normal. No rashes or lesions. HEAD/SINUSES: No significant findings EYES: PERRLA, EOMI EARS: External ears normal, canals clear NOSE: Wears mask NECK: Supple BACK: Back symmetric, Normal curvature LUNGS: Speaking in full sentences, breathing nonlabored CARDIAC: No bilateral JVD ABDOMEN: Normal abdomen EXTREMITIES: Extremities normal, no deformities, edema, clubbing or skin discoloration. Good capillary refill., No ulcers ASSESSMENT/PLAN: 1. PCOS (polycystic ovarian syndrome) - ICD9: 256.4, ICD10: E28.2 - Patient unsure when she discontinued OCPs, approximately 4 months ago. Having irregular periods - Labs reviewed and WNL - TVUS reviewed: Impression Normal appearing anteverted uterus that measures 67 mm x 26 mm x 36 mm. The endometrium measures 8.2 mm. Both ovaries contain multiple small follicular cysts at the periphery of the ovarian stroma. This finding is suggestive of polycystic ovarian syndrome. No adnexal masses were observed. There is no free fluid visualized in the peritoneal cavity. - Patient desires - Discussed ovulation induction, also discussed some women with PCOS do not have difficulty gettting - At this time, patient would like to continue trying to conceive naturally. Will call when she starts her next period and will order day 3 progesterone to assess if she ovulated - Patient agreeable to plan of care. Questions answered. Discussed implications of diagnosis of PCOS - Encouraged PNV RTC 6 months for PCOS follow up if not already Renata Clancy DO documented in this encounter [facility] 07-10-2021 Note HNO ID: [id number] Author: Renata Clancy DO Service: ? Author Type: Physician Type: Progress Notes Filed: 07/10/2021 2:30 PM Note Text: SERVICE DATE: 07/10/2021 SERVICE TIME: 2:09 PM Subjective CHIEF COMPLAINT: Irregular menses HPI: This is a 26 year old female who presents with irregular menstrual cycles. Was regular when on OCPs. Was on OCPs for cycle regulation. Does not want to restart OCPs; is trying to conceive. States off OCPs for about 1 year. Has been trying to conceive for 5 months. Not taking PNV. LMP 06/04/21. No cramps; flow x4-5 days. First two days heavy, then tapers. Normally patient has cramps. Period before last cycle was 04/05/22. Otherwise normal period for patient. Did skip cycle in May. Did take HPT, it was negative. Patient endorses healthier diet. No change in activity. Endorses history of HSV-2. One outbreak in 2019. Denies h/o GC/CT, Trichomoniasis. Does not smoke. Denies history of pelvic or abdominal surgery. Menses irregular in that she will skip one or two months at a time. States she has missed about 4 months since coming off of control. Patient states in a perfect world, she would be by 27 or 28, but at age 26 would be OK with it too. States she is having regular unprotected intercourse. States she is using OPKs, but doesn't remember the last time she ovulated. Last used OPK last month; did not detect that she ovulated. Denies any unwanted hair growth, denies headaches, denies diabetes history. Denies family history of difficulty conceiving. One sexual partner. Has not fathered any children. PAST MEDICAL HISTORY Diagnosis Date - Herpes simplex type 2 infection PAST SURGICAL HISTORY Procedure Laterality Date - NONE History reviewed. No pertinent family history. Social History Tobacco Use - Smoking status: Never Smoker - Smokeless tobacco: Never Used Substance Use Topics - Alcohol use: Not on file - Drug use: Not on file (Not in a hospital admission) ALLERGIES No Known Allergies COMPLETE REVIEW OF SYSTEMS: PAIN ASSESSMENT: Negative for pain, history of chronic pain, or current treatment for a chronic pain condition. GENERAL: No weight loss, malaise or fevers HEENT: Negative for frequent or significant headaches, No changes in hearing or vision, no nose bleeds or other nasal problems NECK: Negative for lumps, goiter, pain and significant neck swelling RESPIRATORY: Negative for cough, hemoptysis, wheezing, COPD, dyspnea or shortness of breath CARDIOVASCULAR: Negative for chest pain, leg swelling, hypertension, CHF or palpitations GI: No nausea, vomiting, or diarrhea : No history of dysuria, frequency or incontinence SENSOR SPECIALIST: irregular menses MUSCULOSKELETAL: Negative for joint pain or swelling, back pain or muscle pain SKIN: Negative for lesions, rash, and itching PSYCH: Negative for sleep disturbance, mood disorder and recent psychosocial stressors HEMATOLOGY/LYMPHOLOGY: Negative for prolonged bleeding, bruising easily or swollen nodes ENDOCRINE: Negative for cold or heat intolerance, polyuria, polydipsia and goiter Objective PHYSICAL EXAM: 07/10/21 1402 BP: 128/86 Weight: 182 lb 6.4 oz (82.7 kg) Height: 5' 1 (1.549 m) Physical Exam Performed: GENERAL: Alert, no distress, cooperative SKIN: Skin color, texture, turgor normal. No rashes or lesions. HEAD/SINUSES: No significant findings EYES: PERRLA, EOMI NOSE: Wears mask NECK: Supple BACK: Back symmetric, Normal curvature LUNGS: Lungs clear to auscultation, Good diaphragmatic excursion CARDIAC: Normal S1 and S2; no rubs, murmurs, or gallops ABDOMEN: Abdomen soft, non-tender, BS normal, No masses or organomegaly EXTREMITIES: Extremities normal, no deformities, edema, clubbing or skin discoloration. Good capillary refill., No ulcers GENITALIA FEMALE: Normal external genitalia, Normal vagina and normal vaginal tone, Normal cervix, Normal uterus, size and consistency, Normal adnexa without tenderness ASSESSMENT/PLAN: 1. Irregular menses - ICD9: 626.4, ICD10: N92.6 - BIOAVAIL TESTO/SHBG, FEM AND CHILD - DHEA-S BLD - HYDROXYPROGESTERO-17 - PELVIC US WHI - T4 FREE/FREE THYROX - TESTOSTERONE TOTAL - TSH BLD - Continue tracking cycles; continue regular unprotected intercourse. Does not meet criteria for infertility. Continue OPKs. Encouraged weight loss and healthy eating. - Discussed possible menses induction if not at 1 year angella. RTC for TVUS and lab follow up Renata Clancy DO [facility] Evaluation note Diagnosis Irregular menses Irregular menstrual cycle [facility] Diagnosis PCOS (polycystic ovarian syndrome)- Primary Polycystic ovaries [facility] Diagnosis Vulvar itching- Primary Pruritus of genital organs [facility] Diagnosis PCOS (polycystic ovarian syndrome)- Primary Polycystic ovaries Trichomoniasis Trichomoniasis, unspecified documented in this encounter [facility] Reason for Referral Status Reason Specialty Diagnoses / Procedures Referred By Contact Referred To Contact [facility] Required Family Medicine Diagnoses Acute cystitis with hematuria Burning with urination Anat Valladares PA [address] [place] [address] [place] [facility] [address] [address] Scheduling Instructions [facility] [address] [address] Fx: [phone] Status Reason Specialty Diagnoses / Procedures Referred By Contact Referred To Contact [facility] Required Gastroenterology Diagnoses Nausea and vomiting, intractability of vomiting not specified, unspecified vomiting type 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 [phone] Fax: Discharge Instructions * Instructions* Anat Valladares PA - 02/05/2020 You have a urinary tract infection. Please take the Pyridium to help with her burning with urination. Please take the antibiotic prescribed for the next several days. Please make sure to complete all antibiotic. I also made a referral out to family medicine clinic. They will call you in a few days to set up an appointment. Return to the emergency room if you are unable to urinate or if he started having fevers or back pain. * Attachments The following attachments cannot be sent through Care Everywhere. * UTI (Urinary Tract Infection): Female (Peruvian) documented in this encounter* Attachments The following attachments cannot be sent through Care Everywhere. * Hypokalemia (Peruvian) * Nausea and Vomiting (Peruvian) documented in this encounter Assessments Diagnosis Acute cystitis with hematuria Acute cystitis Burning with urination Dysuria Diagnosis Nausea and vomiting, intractability of vomiting not specified, unspecified vomiting type- Primary Hypokalemia Hypopotassemia Summary Purpose Family History No Family History Records FoundNo Family History Records FoundNo Family History Records FoundNo Family History Records FoundNo Family History Records Found Advance Directives No Advanced Directives Records FoundNo Advanced Directives Records FoundNo Advanced Directives Records FoundNo Advanced Directives Records FoundNo Advanced Directives Records Found Additional Source Comments Reason for Visit (unrecogniz ed section and content) Reason Comments Urinary Retention Pt having burning w/ urination when woke up this am. Came in to get ATB. Reason Comments Emesis off and on for past 2 weeks; states increased personal stress recently ue to of her bother; Reason Comments Us Procedure Reason Comments Follow Up review u/s Reason Comments Orders Reason Comments Vaginal Discharge itching Reason Comments Results Reason Comments Follow Up Pcos follow up 6 mon ths Reason Comments Results Appointment Ordered Prescriptions (unrec ognized section and content) Prescription Sig Dispensed Refills Start Date End Da te ondansetron (ZOFRAN) 4 MG tablet Take 2 tablets by mouth daily as needed for Nausea or Vomiting 12 tablet 0 08/17/2020 INFORMATION SOURCE (unrecogn ized section and content) DATE CREATED AUTHOR 08/22/2020 [facility] DATE CREATED AUTHOR AUTHOR'S ORGANIZ ATION 03/05/2022 [facility] DATE CREATED AUTHOR AUTHOR'S ORGANIZ ATION 09/22/2022 [facility] DATE CREATED AUTHOR AUTHOR'S ORGANIZ ATION 10/13/2022 [facility] DATE CREATED AUTHOR AUTHOR'S ORGANIZ ATION 05/17/2023 [facility] EPIC Source Comments (unrecognize d section and content) In the event this informatio n is protected by the Federal Confidentiality of Alcohol and Drug Abuse Patient Records regulations: The Federal rules restrict any use of the information to criminally investigate or prosecute any alcohol or drug abuse patient.[facility] the event this information is protected by the Federal Confidentiality of Alcohol and Drug Abuse Patient Records regulations: The Federal rules restrict any use of the information to criminally investigate or prosecute any alcohol or drug abuse patient.[facility] the event this information is protected by the Federal Confidentiality of Alcohol and Drug Abuse Patient Records regulations: The Federal rules restrict any use of the information to criminally investigate or prosecute any alcohol or drug abuse patient.[facility] the event this information is protected by the Federal Confidentiality of Alcohol and Drug Abuse Patient Records regulations: The Federal rules restrict any use of the information to criminally investigate or prosecute any alcohol or drug abuse patient.[facility] the event this information is protected by the Federal Confidentiality of Alcohol and Drug Abuse Patient Records regulations: The Federal rules restrict any use of the information to criminally investigate or prosecute any alcohol or drug abuse patient.[facility] the event this information is protected by the Federal Confidentiality of Alcohol and Drug Abuse Patient Records regulations: The Federal rules restrict any use of the information to criminally investigate or prosecute any alcohol or drug abuse patient.[facility] the event this information is protected by the Federal Confidentiality of Alcohol and Drug Abuse Patient Records regulations: The Federal rules restrict any use of the information to criminally investigate or prosecute any alcohol or drug abuse patient.[facility] Care Teams (unrecognized sec tion and content) 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 This clinical summary was aggregated from multiple sources. Caution should be exercised in using it in the provision of clinical care. This summary normalizes information from multiple sources, and as a consequence, information in this document may materially change the coding, format and clinical context of patient data. In addition, data may be omitted in some cases. CLINICAL DECISIONS SHOULD BE BASED ON THE PRIMARY CLINICAL RECORDS. [facility] [employer] [facility]. provides no warranty or guarantee of the accuracy or completeness of information in this document.
--- NOTE | 2023-09-07 10:40 | ED_ITS ---
HPI HPI - General Adult General Chief complaint: Dental/Oral Stated complaint: SWOLLEN LIP Time Seen by Provider: 09/07/23 10:15 Source: patient Mode of arrival: walk-in Limitations: no limitations History of Present Illness HPI narrative: Patient is here complaining of swelling of her upper lip. She has no history of trauma or injury. She does not have any itching of the lip. She has no other skin rash or hives or itchiness. Does not have any dental pain. She initially indicated that she is not taking any medicine but then she remembered on Saturday she took a GI cleansing pill. On Saturday she is felt like her mouth was on fire and there is a burning sensation. Now she wakes up and her upper lip is swollen. She is not on any BHAVANA inhibitors. She has no swelling of her tongue or the uvula no difficulty breathing. No cough or congestion no stridor. No other symptoms today. Related Data Allergies Allergy/AdvReac Type Severity Reaction Status Date / Time No Known Drug Allergies Allergy Verified 09/07/23 10:19 Opioid HPI Opioid Management Most Recent Opioid Data: Last Pain Scale 3 09/07/23 10:21 Last ED Pain Assessment 09/07/23 10:21 Exam Narrative Exam Narrative: Awake alert pleasant vital signs are stable. Overall examination her facial area shows no facial swelling. There is no swelling or adenitis in the submandibular area. Extraocular muscles are normal. Nasal area is not congested or swollen. Her oral hygiene is overall good. She has absolutely no discomfort with percussion and palpation of any of her teeth. There is no abscess there is no erythema there is no candidiasis the floor the mouth and uvula are completely normal. The upper lip has very subtle soft tissue swelling but no nodularity or tenderness to palpation. Constitutional Vital Signs, click to edit/add: Last Vital Signs Temp 98.3 F 09/07/23 10:17 Pulse 104 H 09/07/23 10:17 Resp 17 09/07/23 10:17 BP 133/99 H 09/07/23 10:17 Pulse Ox 100 09/07/23 10:17 O2 Del Method Room Air 09/07/23 10:17 Course Vital Signs Vital signs: Vital Signs Temperature 98.3 F 09/07/23 10:17 Pulse Rate 104 H 09/07/23 10:17 Respiratory Rate 17 09/07/23 10:17 Blood Pressure 133/99 H 09/07/23 10:17 Pulse Oximetry 100 09/07/23 10:17 Oxygen Delivery Method Room Air 09/07/23 10:17 Temperature 98.3 F 09/07/23 10:17 Pulse Rate 104 H 09/07/23 10:17 Respiratory Rate 17 09/07/23 10:17 Blood Pressure 133/99 H 09/07/23 10:17 Pulse Oximetry 100 09/07/23 10:17 Oxygen Delivery Method Room Air 09/07/23 10:17 Medical Decision Making MDM Narrative Medical decision making narrative: Patient presents with subtle soft tissue swelling upper lip with the only known change in lifestyle is a new medication she took for GI cleansing with subsequent symptoms the next day. Were recommending cold compresses and 25 mg of Benadryl for the next 2 days taken 3 times a day this is [id number]. Discharge Plan Discharge Stand Alone Forms: Portal Instructions Chief Complaint: Dental/Oral Clinical Impression: Adverse effect of [id number] medication Patient Disposition: Home, Self-Care Time of Disposition Decision: 10:43 Print Language: Setswana Additional Instructions: Have cold compresses to the area 20 to 30 minutes at least 3 times a day for several days. Take 25 mg Benadryl 3 times a day for 2 or 3 days Referrals: Physician,Non-Staff, MD [Primary Care Provider] - 1 week
[2023-09-07 10:57] VITALS: PULSE 78; O2SAT 98
== END 2023-09-07 10:58 | disposition home or self-care (01) ==
PROVIDERS: Emergency Provider Emergency Medicine Emergency Medical Services
DX: R22.0 Localized swelling, mass and lump, head (principal); T50.995A Adverse effect of other drugs, medicaments and biological substances, initial encounter
CPT/HCPCS: 99282

== ENCOUNTER 2024-07-01 21:19 | Outpatient (REF) | payer SELFPAY ==
--- OUTSIDE RECORDS SUMMARY | 2024-07-01 21:23 | XMS_ITS | CCD ---
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 Role Phone Unavailable Primary Care Provider Unavailabl e Abi Gagnon Primary Care Provider Unavailable Primary Care Provider Unavailabl e Unavailable Primary Care Provider Unavailabl e MIHALIK, RENATA Referring Unavailable MIHALIK, RENATA Referring Unavailable MIHALIK, RENATA Attending Unavailable MIHALIK, RENATA Referring Unavailable MIHALIK, RENATA Referring Unavailable MIHALIK, RENATA Attending Unavailable LA HOLM Attending Unavailable MIHALIK, RENATA Referring Unavailable MIHALIK, RENATA Attending Unavailable Kristen Silveira MD Primary Care Provider [phone] MAISHA HUTCHINSON Referring Unavailable KRISTEN SILVEIRA Primary Care Unavailable JAVY ., DR OBREGON [...] JAVY ., DR OBREGON Procedure Practitioner Unavail able BUFFALO, DR ELMO [employer] Unavailable MISC, DR [...] Unavailable JAVY ., DR OBREGON Admitting Unavailable BUFFALO, DR ELMO [employer] Unavailable MISC, DR [...] Unavailable JAVY ., DR OBREGON Admitting Unavailable RANDI ASTORGA Attending Unavailable MICHAELRANDI WRIGHT Attending Unavailable Unavailable Primary Care Provider Unavailabl e Medications Current Medications Medication Drug Class(es) Dates Sig (Normalized) Sig (Original) azithromycin 500 mg oral tablet (3 sources) Macrolide Antimicrobial Start: 11-06-2023 End: 07-01-2024 take 1 tablet by mouth once daily azithromycin (Zithromax) 500 MG tablet Indications: Bacterial infection due to mycoplasma Day 1: Take 2 tablets PO onetime dose; Day 2,3,4: Take 1 tablet daily 5 tablet 11/06/2023 07/01/2024 Discontinued (Other) clindamycin 0.01 mg/mg topical gel (1 source) Lincosamide Antibacterial Start: 04-14-2020 End: 04-21-2020 clindamycin (CLEOCIN-T) 1 % gel Indications: Hidradenitis suppurativa of right axilla Apply topically 2 times daily. 1 Bottle 1 04/14/2020 04/21/2020 Active Ethinyl Estradiol / Ferrous fumarate / Norethindrone (8 sources) Estrogen Start: 02-27-2023 norethindrone-ethi nyl estradiol (Junel FE 06/22) 1-20 MG-MCG tablet Indications: Encounter for initial prescription of contraceptive pills Take 1 tablet by mouth in the morning. 28 tablet 11 02/27/2023 Active Start: 04-14-2020 take 1 tablet by pennie th once daily, then take 0.05-1 tablets by mouth once norethindrone-ethinyl estradiol (LOESTRIN FE 06/22) 1-20 MG-MCG [...] 1 capsule by mouth twice daily nitrofurantoin, macrocrystal-mono hydrate, (MACROBID) 100 MG capsule Take 1 capsule [...] oral tablet (2 sources) Progestin Start: 02-09-20 medroxyPROGESTERone (PROVERA) 10 mg tablet Indications: PCOS [...] on above: Take 1 tablet by pennie twice daily. for vaginosis. Do not drink [...] urination ; Translations: [Burning with urination] Episodic Immunizations and screening for infectious disease (4 sources) Contact with and (suspected) exposure to infections with a predominantly sexual mode of transmission; Translations: [Encounter for screening for infections with a predominantly sexual mode of transmission] Onset: 03-09-2022 07-01-2024 Episodic Inflammatory diseases of female pelvic organs (3 sources) Bacterial vaginosis; Translations: [Acute vaginitis] Onset: 05-06-2024 05-06-2024 Episodic Menstrual disorders (7 sources) Irregular periods; [...] applicable or unspecified; Translations: [MAT CARE OTH CO FTL GRTH 3RD TM UNS] Onset: 10-02-2022 [...] NOS/WO HEMOR UNS TRI] Onset: 07-03-2022 Episodic Other female genital disorders (4 sources) Other specified noninflammatory disorders of vagina; Translations: [OTH SPEC NONINFLAMMATORY D/O VAGINA] Onset: 03-08-2022 Episodic Other inflammatory condition of skin (1 source) Pruritus vulvae; Translations: [Vulvar itching] Onset: 11-01-2021 Episodic NEGATED: Highlighted row has been ruled out!Unclassified (1 source) No known active problems 10-28-2021 Results Test Name Value Interpretation Reference Range Facil ity Cytology Cervical or vaginal smear or scraping studyOrdered By: Tiffanie Dee on 05-15-2023 [facility] CBC AUTO DIFFon 10-04-2022 BASO # 0.0 103/ul Normal 0.0-0.[address] [facility] Comment on above: Performed By: #### H EPACUT #### [facility] [address] [address] [address] Gita Graham Basophils/100 WBC (Bld) 0.1 % Critically low 0.2-2.[address] [facility] Comment on above: Performed By: #### H EPACUT #### [facility] [address] [address] [address] Gita Graham EO # 0.0 103/ul Normal 0.0-0.7 [facility] Comment on above: Performed By: #### H EPACUT #### [facility] [address] [address] [address] Gita Graham Eosinophils/100 WBC (Bld) 0.1 % Critically low 0.9-7.[address] [facility] Comment on above: Performed By: #### H EPACUT #### [facility] [address] [address] [address] Gita Graham Erythrocyte distribution width (RBC) [Ratio] 13.5 % Normal 11.0-15.[address] [facility] Comment on above: Performed By: #### H EPACUT #### [facility] [address] [address] [address] Gita Graham Hematocrit (Bld) [Volume fraction] 26.3 % Critically low 36.0-48.[address] [facility] Comment on above: Performed By: #### H EPACUT #### [facility] [address] [address] [address] Gita Graham Hemoglobin (Bld) [Mass/Vol] 8.5 g/dL Critically low 12.0-16.[address] [facility] Comment on above: Performed By: #### H EPACUT #### [facility] [address] [place] [address] Dr. Gita Graham IG # 0.21 10e3/ul Critically high 0.00-0.03 [facility] Comment on above: Performed By: #### H EPACUT #### [facility] [address] [place] [address] Dr. Gita Graham IG % 1.0 % Critically high 0.0-0.5 [facility] Comment on above: Performed By: #### H EPACUT #### [facility] [address] [place] [address] Dr. Gita Graham LYMPH # 1.8 103/ul Normal 1.2-3.[address] [facility] Comment on above: Performed By: #### H EPACUT #### [facility] [address] [place] [address] Dr. Gita Graham Lymphocytes/100 WBC (Bld) 8.6 % Critically low 20.5-60.[address] [facility] Comment on above: Performed By: #### H EPACUT #### [facility] [address] [address] [address] Gita Graham MANUAL DIFF REQ NO Normal [facility] Comment on above: Performed By: #### H EPACUT #### [facility] [address] [place] [address] Dr. Gita Graham MCH (RBC) [Entitic mass] 26.9 pg Normal 26.7-34.[address] [facility] Comment on above: Performed By: #### H EPACUT #### [facility] [address] [place] [address] Dr. Gita Graham MCHC (RBC) [Mass/Vol] 32.3 g/dL Normal 29.9-35.2 [facility] Comment on above: Performed By: #### H EPACUT #### [facility] [address] [place] [address] Dr. Gita Graham MCV (RBC) [Entitic vol] 83.2 fL Normal 81.0-99.[address] [facility] Comment on above: Performed By: #### H EPACUT #### [facility] [address] [place] [address] Dr. Gita Graham MONO # 1.5 103/ul Critically high 0.3-0.8 [facility] Comment on above: Performed By: #### H EPACUT #### [facility] [address] [place] [address] Dr. Gita Graham Monocytes/100 WBC (Bld) 7.3 % Normal 1.7-12.[address] [facility] Comment on above: Performed By: #### H EPACUT #### [facility] [address] [place] [address] Dr. Gita Graham NEUT # 17.1 103/ul Critically high 1.4-6.5 [facility] Comment on above: Performed By: #### H EPACUT #### [facility] [address] [place] [address] Dr. Gita Graham Neutrophils/100 WBC (Bld) 82.9 % Critically high 43.0-75.0 [facility] Comment on above: Performed By: #### H EPACUT #### [facility] [address] [place] [address] Dr. Gita Graham Platelet mean volume (Bld) [Entitic vol] 11.0 fL Normal 9.5-13.5 [facility] Comment on above: Performed By: #### H EPACUT #### [facility] [address] [place] [address] Dr. Gita Graham PLT 175 103/ul Normal 150-450 [facility] Comment on above: Performed By: #### H EPACUT #### [facility] [address] [place] [address] Dr. Gita Graham RBC 3.16 106/ul Critically low 4.20-5.40 [facility] Comment on above: Performed By: #### H EPACUT #### [facility] [address] [place] [address] Dr. Gita Graham WBC 20.6 103/ul Critically high 4.0-11.0 [facility] Comment on above: Performed By: #### H EPACUT #### [facility] [address] [place] [address] Dr. Gita Graham DRUG SCREEN RAPID (URINE)on 10-03-2022 AMP Negative Normal NEGATIVE [facility] Comment on above: Performed By: #### D RUGRPD #### [facility] [address] [place] [address] Dr. Gita Graham BAR Negative Normal NEGATIVE [facility] Comment on above: Performed By: #### D RUGRPD #### [facility] [address] [place] [address] Dr. Gita Graham BUP Negative Normal NEGATIVE [facility] Comment on above: Performed By: #### D RUGRPD #### [facility] [address] [place] [address] Dr. Gita Graham BZO Negative Normal NEGATIVE [facility] Comment on above: Performed By: #### D RUGRPD #### [facility] [address] [place] [address] Dr. Gita Graham LATHA Negative Normal NEGATIVE [facility] Comment on above: Performed By: #### D RUGRPD #### [facility] [address] [place] [address] Dr. Gita Graham CUT-OFFS SEE BELOW Normal [facility] Comment on above: Result Comment: AMP (Amphetamine): 500ng/mL, BAR (Barbituates): 200 ng/mL, BZO (Benzodiazepines): 150 ng/mL, BUP (Buprenorphine): 10 ng/mL, LATHA (Cocaine): 150 ng/mL, mAMP (Methamphetamine): 500 ng/mL, MTD (Methadone): 200 ng/mL, OPI (Opiates): 100 ng/mL, OXY (Oxycodone): 100 ng/mL, PCP (Phencyclidine): 25 ng/mL, PPX (Propoxyphene): 300 ng/mL, THC (Cannabinoids): 50 ng/mL, TCA (Trycyclic Antidepressants): 300 ng/mL Performed By: #### D RUGRPD #### [facility] [address] [place] [address] Dr. Gita Graham DRUG CUT HEADER DRUG CLASS TEST SYST EM CUT-OFF CONCENTRATIONS ARE FOLLOWS: Normal [facility] Comment on above: Performed By: #### D RUGRPD #### [facility] [address] [place] [address] Dr. Gita Graham mAMP Negative Normal NEGATIVE [facility] Comment on above: Performed By: #### D RUGRPD #### [facility] [address] [place] [address] Dr. Gita Graham MTD Negative Normal NEGATIVE [facility] Comment on above: Performed By: #### D RUGRPD #### [facility] [address] [place] [address] Dr. Gita Graham OPI Negative Normal NEGATIVE [facility] Comment on above: Performed By: #### D RUGRPD #### [facility] [address] [place] [address] Dr. Gita Graham OXY Negative Normal NEGATIVE [facility] Comment on above: Performed By: #### D RUGRPD #### [facility] [address] [place] [address] Dr. Gita Graham PCP Negative Normal NEGATIVE [facility] Comment on above: Performed By: #### D RUGRPD #### [facility] [address] [place] [address] Dr. Gita Graham PPX Negative Normal NEGATIVE [facility] Comment on above: Performed By: #### D RUGRPD #### [facility] [address] [place] [address] Dr. Gita Graham TCA Negative Normal NEGATIVE [facility] Comment on above: Performed By: #### D RUGRPD #### [facility] [address] [address] [address] Gita Graham THC Negative Normal NEGATIVE [facility] Comment on above: Performed By: #### D RUGRPD #### [facility] [address] [address] [address] Gita Graham CBC AUTO DIFFon 10-02-2022 BASO # 0.0 103/ul Normal 0.0-0.[address] [facility] Comment on above: Performed By: #### C BC #### [facility] [address] [place] [address] Dr. Gita Graham Basophils/100 WBC (Bld) 0.2 % Normal 0.2-2.[address] [facility] Comment on above: Performed By: #### C BC #### [facility] [address] [place] [address] Dr. Gita Graham EO # 0.1 103/ul Normal 0.0-0.[address] [facility] Comment on above: Performed By: #### C BC #### [facility] [address] [place] [address] Dr. Gita Graham Eosinophils/100 WBC (Bld) 1.2 % Normal 0.9-7.[address] [facility] Comment on above: Performed By: #### C BC #### [facility] [address] [place] [address] Dr. Gita Graham Erythrocyte distribution width (RBC) [Ratio] 13.5 % Normal 11.0-15.[address] [facility] Comment on above: Performed By: #### C BC #### [facility] [address] [place] [address] Dr. Gita Graham Hematocrit (Bld) [Volume fraction] 30.2 % Critically low 36.0-48.[address] [facility] Comment on above: Performed By: #### C BC #### [facility] [address] [place] [address] Dr. Gita Graham Hemoglobin (Bld) [Mass/Vol] 9.7 g/dL Critically low 12.0-16.[address] [facility] Comment on above: Performed By: #### C BC #### [facility] [address] [address] [address] Gita Graham IG # 0.19 10e3/ul Critically high 0.00-0.03 [facility] Comment on above: Performed By: #### C BC #### [facility] [address] [address] [address] Gita Graham IG % 1.8 % Critically high 0.0-0.5 [facility] Comment on above: Performed By: #### C BC #### [facility] [address] [address] [address] Gita Graham LYMPH # 1.5 103/ul Normal 1.2-3.[address] [facility] Comment on above: Performed By: #### C BC #### [facility] [address] [place] [address] Dr. Gita Graham Lymphocytes/100 WBC (Bld) 13.5 % Critically low 20.5-60.[address] [facility] Comment on above: Performed By: #### C BC #### [facility] [address] [address] [address] Gita Graham MANUAL DIFF REQ NO Normal [facility] Comment on above: Performed By: #### C BC #### [facility] [address] [place] [address] Dr. Gita Graham MCH (RBC) [Entitic mass] 26.6 pg Critically low 26.7-34.[address] [facility] Comment on above: Performed By: #### C BC #### [facility] [address] [address] [address] Gita Graham MCHC (RBC) [Mass/Vol] 32.1 g/dL Normal 29.9-35.[address] [facility] Comment on above: Performed By: #### C BC #### [facility] [address] [place] [address] Dr. Gita Graham MCV (RBC) [Entitic vol] 82.7 fL Normal 81.0-99.[address] [facility] Comment on above: Performed By: #### C BC #### [facility] [address] [address] [address] Gita Graham MONO # 0.8 103/ul Normal 0.3-0.[address] [facility] Comment on above: Performed By: #### C BC #### [facility] [address] [address] [address] Gita Graham Monocytes/100 WBC (Bld) 7.3 % Normal 1.7-12.[address] [facility] Comment on above: Performed By: #### C BC #### [facility] [address] [address] [address] Gita Graham NEUT # 8.2 103/ul Critically high 1.4-6.5 [facility] Comment on above: Performed By: #### C BC #### [facility] [address] [place] [address] Dr. Gita Graham Neutrophils/100 WBC (Bld) 76.0 % Critically high 43.0-75.[address] [facility] Comment on above: Performed By: #### C BC #### [facility] [address] [place] [address] Dr. Gita Graham Platelet mean volume (Bld) [Entitic vol] 10.7 fL Normal 9.5-13.[address] [facility] Comment on above: Performed By: #### C BC #### [facility] [address] [address] [address] Gita Graham PLT 194 103/ul Normal 150-450 [facility] Comment on above: Performed By: #### C BC #### [facility] [address] [address] [address] Gita Graham RBC 3.65 106/ul Critically low 4.20-5.40 [facility] Comment on above: Performed By: #### C BC #### [facility] [address] [address] [address] Gita Graham WBC 10.8 103/ul Normal 4.0-11.0 [facility] Comment on above: Performed By: #### C BC #### [facility] [address] [place], [place] [address] Dr. Gita Graham TYPE AND SCREENon 10-02-2022 TYPE AND SCREEN Negative Normal [facility] Comment on above: Performed By: #### T NS #### [facility] [address] [place], [place] [address] Dr. Gita Graham GROUP B STREP CULTUREon 09-02 S. agalactiae Ag Ql (Unsp spec) Culture Observations: NEGATIVE FOR GROUP B STREPTOCOCCUS. Normal [facility] Comment on above: Performed By: #### H EPACUT #### [facility] [address] [place], [place] [address] Dr. Gita Graham Coxsackie A9 Titeron 023 Coxsackie A9 Titer 1:8 Normal <1:8 [facility] Comment on above: Result Comment: (NOT E) INTERPRETIVE INFORMATION: Coxsackie A Serotype 9 Titer Single positive antibody titers of greater than 1:32 may indicate past or current infection. Seroconversion or an increase in titers between acute and convalescent sera of at least fourfold is considered strong evidence of current or recent infection. Performed By: [facility] [address] [place] [address] Mass Spectrometry Specialist: Johan Chen MD, PhD Performed By: #### A COXA9, APARVP #### [facility] [address] [place] [address] Show Host/Hostess: Hussain Storey MD #### TOXOM, CMVM, TOXOG, CMVG #### [id number] [place] [address] Show Host/Hostess: fErain Ramirez MD Parvovirus B19 Panelon 07-28 Parvovirus IgG B19 0.49 IV Normal <=0.90 [facility] Comment on above: Result Comment: (NOT E) [...] Performed By: #### A COXA9, APARVP #### [facility] [address] [place] [id number] Show Host/Hostess: Hussain Storey MD #### TOXOM, CMVM, TOXOG, CMVG #### [place] [address] Show Host/Hostess: Efrain Ramirez MD Parvovirus IgM B19 0.18 IV Normal <=0.90 [facility] Comment on above: Result Comment: (NOT E) [...] levels of specific IgM antibodies. Performed By: [facility] [address] [place] [address] Mass Spectrometry Specialist: Johan Chen MD, PhD Performed By: #### A COXA9, APARVP #### [facility] [address] [place], [place] [id number] Show Host/Hostess: Hussain Storey MD #### TOXOM, CMVM, TOXOG, CMVG #### [address] [address] Show Host/Hostess: Efrain Ramirez MD CMV Ab,IgMon 07-27-2022 CMV Ab,IgM 0.2 Normal <0.9 [facility] Comment on above: Result Comment: Reference Range: [...] #### A COXA9, APARVP #### [facility] [address] [place] [id number] Show Host/Hostess: Hussain Storey MD #### TOXOM, CMVM, TOXOG, CMVG #### [address] [address] Show Host/Hostess: Efrain Ramirez MD CMV Ab,IgGon 2 CMV Ab,IgG 4.3 High <0.9 [facility] Comment on above: Result Comment: Reference Range: [...] #### A COXA9, APARVP #### [facility] [address] [place] [id number] Show Host/Hostess: Hussain Storey MD #### TOXOM, CMVM, TOXOG, CMVG #### [address] [id number] Show Host/Hostess: Efrain Ramirez MD Toxoplasma Ab,IgGon 07-26-19 23 Toxoplasma Ab,IgG <0.5 Normal [facility] Comment on above: Result Comment: REFERENCE RANGE: [...] AND CONVALESCENT SERA. Performed By: #### A FRANCIA APARVP #### [facility] [address] [place], [place] [id number] Show Host/Hostess: Hussain Storey MD #### TOXOM, CMVM, TOXOG, CMVG #### [address] [id number] Show Host/Hostess: Efrain Ramirez MD Toxoplasma Ab,IgMon 07-26-19 23 Toxoplasma Ab,IgM 0.58 Index Normal [facility] Comment on above: Result Comment: REFERENCE RANGE: <0.90 NON-REACTIVE 0.90 TO 0.99 INDETERMINANT >=1.00 REACTIVE Performed By: #### A FRANCIA APARVP #### [facility] [address] [place] [address] Show Host/Hostess: Hussain Storey MD #### TOXOM, CMVM, TOXOG, CMVG #### [address] [id number] Show Host/Hostess: Efrain Ramirez MD CBC AUTO DIFFon 07-21-2022 BASO # 0.0 103/ul Normal 0.0-0.1 [facility] Comment on above: Performed By: #### H CVPCRR #### [facility] [address] [place] [address] [id number] [address] Gita Graham Basophils/100 WBC (Bld) 0.4 % Normal 0.2-2.[address] [facility] Comment on above: Performed By: #### H CVPCRR #### [facility] [address] [place] [address] Dr. Gita Graham EO # 0.1 103/ul Normal 0.0-0.[address] [facility] Comment on above: Performed By: #### H CVPCRR #### [facility] [address] [place] [address] Dr. Gita Graham Eosinophils/100 WBC (Bld) 0.8 % Critically low 0.9-7.[address] [facility] Comment on above: Performed By: #### H CVPCRR #### [facility] [address] [place] [address] Dr. Gita Graham Erythrocyte distribution width (RBC) [Ratio] 13.6 % Normal 11.0-15.[address] [facility] Comment on above: Performed By: #### H CVPCRR #### [facility] [address] [place] [address] Dr. Gita Graham Hematocrit (Bld) [Volume fraction] 32.4 % Critically low 36.0-48.[address] [facility] Comment on above: Performed By: #### H CVPCRR #### [facility] [address] [place] [address] Dr. Gita Graham Hemoglobin (Bld) [Mass/Vol] 10.7 g/dL Critically low 12.0-16.[address] [facility] Comment on above: Performed By: #### H CVPCRR #### [facility] [address] [place] [address] Dr. Gita Graham IG # 0.09 10e3/ul Critically high 0.00-0.03 [facility] Comment on above: Performed By: #### H CVPCRR #### [facility] [address] [place] [address] Dr. Gita Graham IG % 0.8 % Critically high 0.0-0.5 [facility] Comment on above: Performed By: #### H CVPCRR #### [facility] [address] [address] [address] Gita Graham LYMPH # 1.4 103/ul Normal 1.2-3.8 [facility] Comment on above: Performed By: #### H CVPCRR #### [facility] [address] [address] [address] Gita Graham Lymphocytes/100 WBC (Bld) 12.9 % Critically low 20.5-60.[address] [facility] Comment on above: Performed By: #### H CVPCRR #### [facility] [address] [address] [address] Gita Graham MANUAL DIFF REQ NO Normal [facility] Comment on above: Performed By: #### H CVPCRR #### [facility] [address] [place] [address] Dr. Gita Graham MCH (RBC) [Entitic mass] 28.0 pg Normal 26.7-34.[address] [facility] Comment on above: Performed By: #### H CVPCRR #### [facility] [address] [address] [address] Gita Graham MCHC (RBC) [Mass/Vol] 33.0 g/dL Normal 29.9-35.[address] [facility] Comment on above: Performed By: #### H CVPCRR #### [facility] [address] [place] [address] Dr. Gita Graham MCV (RBC) [Entitic vol] 84.8 fL Normal 81.0-99.[address] [facility] Comment on above: Performed By: #### H CVPCRR #### [facility] [address] [place] [address] Dr. Gita Graham MONO # 0.7 103/ul Normal 0.3-0.8 [facility] Comment on above: Performed By: #### H CVPCRR #### [facility] [address] [address] [address] Gita Graham Monocytes/100 WBC (Bld) 6.0 % Normal 1.7-12.[address] [facility] Comment on above: Performed By: #### H CVPCRR #### [facility] [address] [address] [address] Gita Graham NEUT # 8.5 103/ul Critically high 1.4-6.5 [facility] Comment on above: Performed By: #### H CVPCRR #### [facility] [address] [address] [address] Gita Graham Neutrophils/100 WBC (Bld) 79.1 % Critically high 43.0-75.[address] [facility] [facility] Comment on above: Performed By: #### H CVPCRR #### [facility] [address] [address] [address] Gita Graham Platelet mean volume (Bld) [Entitic vol] 10.3 fL Normal 9.5-13.[address] [facility] Comment on above: Performed By: #### H CVPCRR #### [facility] [address] [address] [address] Gita Graham PLT 210 103/ul Normal 150-[address] [facility] Comment on above: Performed By: #### H CVPCRR #### [facility] [address] [address] [address] Gita Graham RBC 3.82 106/ul Critically low 4.20-5.40 [facility] Comment on above: Performed By: #### H CVPCRR #### [facility] [address] [address] [address] Gita Graham WBC 10.8 103/ul Normal 4.0-11.[address] [facility] Comment on above: Performed By: #### H CVPCRR #### [facility] [address] [address] [address] Gita Graham GLUCOSE - 1HRon 07-21-2022 Glucose [Mass/Vol] 114 mg/dL Critically high 74-106 [facility] Comment on above: Performed By: #### H CVPCRR #### [facility] [address] [place] [address] Dr. Gita Graham US PREG PLACENTAon 3 US PREG PLACENTA EXAMINATION: US PREG PLACENTA HISTORY: Placenta previa partialis COMPARISON: 06/05/2022 FINDINGS: position: Cephalic presentation, longitudinal lie Placenta: Anterior. No intraplacental or retroplacental echogenic abnormality. The placental edge is 4.6 cm from the internal os Heart rate: 142 bpm Cervix: 4.8 cm, closed IMPRESSION: Placental edge 4.6 cm from the internal os. Electronically authenticated by: ELMO GOETZ Date: 2022-07-03 11:05 Normal [facility] US PREG ANATOMY SINGLEon US PREG ANATOMY [...] RONIT MILLER Date: 2022-06-05 16:18 Normal [facility] AFP MATERNAL FOR SPINA BIFID Aon 05-31-2022 AFP MoM 1.10 Normal [facility] Comment on above: Performed By: #### A FPMAT #### [facility] [address] [address] [address] Gita Graham AFP Value 49.6 ng/mL Normal [facility] Comment on above: Performed By: #### A FPMAT #### [facility] [address] [address] [address] Gita Graham AFP, Serum for Spina Bifida Report Normal [facility] Comment on above: Performed By: #### A FPMAT #### [facility] [address] [address] [address] Gita Graham Comment Comment Normal [facility] Comment on above: Result Comment: Paul Shook, Ph.D., [facility] Director . References: Available Upon Request. . Multiples Of Median Cutoffs For AFP Elevations Steen 2.5 Black 2.8 IDD 2.0 Twins 4.5 Abbreviation Definitions IDD - Insulin Dep Diabetes OSBR - Open Spina Bifida Risk . For further inquiries contact [facility] at [phone]. . This test was developed and its performance characteristics determined by [employer]. It has not been cleared or approved by the Food and Drug Administration. Performed By: #### A FPMAT #### [facility] [address] [place] [address] Dr. Gita Reyna Age Collection Date 18.7 weeks [facility] Comment on above: Performed By: #### A FPMAT #### [facility] [address] [place] [address] Dr. Gita Graham Gestat, Age Based on SUJEY [facility] Comment on above: Result Comment: 10/02 Recalculations are not recommended when gestational dating by LMP and ultrasound are within 10 days. Performed By: #### A FPMAT #### [facility] [address] [place] [address] Dr. Gita Graham Insulin Dep Diabetes No Normal [facility] Comment on above: Performed By: #### A FPMAT #### [facility] [address] [place] [address] Dr. Gita Graham Interpretation Comment Normal [facility] Comment on above: Result Comment: Inte rpretation: [...] Customer Services to discuss available options. The [employer] recommends amniocentesis be offered to women age 35 and older. Performed By: #### A FPMAT #### [facility] [address] [place] [address] Dr. Gita Graham [age] [address] [facility] Comment on above: Performed By: #### A FPMAT #### [facility] [address] [place] [address] Dr. Gita Graham Multiple Gestation No Normal [facility] Comment on above: Performed By: #### A FPMAT #### [facility] [address] [place] [address] Dr. Gita Graham OSBR Risk 1 [place] 8933 Normal [facility] Comment on above: Performed By: #### A FPMAT #### [facility] [address] [place] [address] Dr. Gita Graham PDF . Normal [facility] Comment on above: Performed By: #### A FPMAT #### [facility] [address] [place] [address] Dr. Gita Graham Race Normal [facility] Comment on above: Performed By: #### A FPMAT #### [facility] [address] [place] [address] Dr. Gita Graham Test Results: Negative Normal [facility] Comment on above: Performed By: #### A FPMAT #### [facility] [address] [place] [address] Dr. Gita Graham HEP B SURFACE ANTIGEN SCREEN on 04-08-2022 HBsAg Screen Negative Normal Negative [facility] Comment on above: Performed By: #### H CVPCRR #### [facility] [address] [address] [address] Gita Graham HEPATITIS C VIRUS AB W/ REFL EX QUANTon 04-08-2022 HCV AB <0.1 Normal 0.0-0.[address] [facility] Comment on above: Performed By: #### H CVPCRR #### [facility] [address] [address] [address] Gita Graham Interpretation: Comment Normal [facility] Comment on above: Result Comment: Nega tive Not infected with HCV, unless recent infection is suspected or other evidence exists to indicate HCV infection. Performed By: #### H CVPCRR #### [facility] [address] [place] [address] Dr. Gita Graham HIV 1 AND 2 WITH REFLEXon HIV Screen 4th Generation wRfx Non-Reactive Normal Non Reactive [facility] Comment on above: Result Comment: HIV Negative HIV-1/HIV-2 antibodies and HIV-1 p24 antigen were NOT detected. There is no laboratory evidence of HIV infection. Performed By: #### H EPACUT #### [facility] [address] [place] [address] Dr. Gita Graham RPR QUANTon 04-08-2022 Rapid Plasma Reagin, Quant Non-Reactive Normal NonRea<1:[address] [facility] Comment on above: Result Comment: Plea se Note: This test does not meet current guidelines for screening and diagnosis of syphilis. This test is intended for following treatment response in patients being treated for syphilis infection. To screen for syphilis infection, a reflex cascade that includes both RPR and a treponema-specific assay should be utilized, such as Treponema pallidum (Syphilis) Screening [place] (932657) or Rapid Plasma Reagin (RPR) Test With Reflex to Quantitative RPR and Confirmatory Treponema pallidum Antibodies (546988). Performed By: #### H CVPCRR #### [facility] [address] [place] [address] Dr. Gita Graham RUBELLA AB IGGon 04-08-2022 Rubella Antibodies, IgG 4.62 index Normal Immune >0.[address] [facility] Comment on above: Result Comment: Non- immune <0.90 Equivocal 0.90 - 0.99 Immune >0.99 Performed By: #### H EPACUT #### [facility] [address] [place] [address] Dr. Gita Graham CBC AUTO DIFFon 04-07-2022 BASO # 0.0 103/ul Normal 0.0-0.[address] [facility] Comment on above: Performed By: #### H CVPCRR #### [facility] [address] [place] [address] Dr. Gita Graham Basophils/100 WBC (Bld) 0.4 % Normal 0.2-2.[address] [facility] Comment on above: Performed By: #### H CVPCRR #### [facility] [address] [place] [address] Dr. Gita Graham EO # 0.0 103/ul Normal 0.0-0.[address] [facility] Comment on above: Performed By: #### H CVPCRR #### [facility] [address] [place] [address] Dr. Gita Graham Eosinophils/100 WBC (Bld) 0.8 % Critically low 0.9-7.[address] [facility] Comment on above: Performed By: #### H CVPCRR #### [facility] [address] [place] [address] Dr. Gita Graham Erythrocyte distribution width (RBC) [Ratio] 13.0 % Normal 11.0-15.[address] [facility] Comment on above: Performed By: #### H CVPCRR #### [facility] [address] [place] [address] Dr. Gita Graham Hematocrit (Bld) [Volume fraction] 39.1 % Normal 36.0-48.[address] [facility] Comment on above: Performed By: #### H CVPCRR #### [facility] [address] [place] [address] Dr. Gita Graham Hemoglobin (Bld) [Mass/Vol] 13.1 g/dL Normal 12.0-16.[address] [facility] Comment on above: Performed By: #### H CVPCRR #### [facility] [address] [place] [address] Dr. Gita Graham IG # 0.01 10e3/ul Normal 0.00-0.[address] [facility] Comment on above: Performed By: #### H CVPCRR #### [facility] [address] [place] [address] Dr. Gita Graham IG % 0.2 % Normal 0.0-0.[address] [facility] Comment on above: Performed By: #### H CVPCRR #### [facility] [address] [place] [address] Dr. Gita Graham LYMPH # 1.3 103/ul Normal 1.2-3.[address] [facility] Comment on above: Performed By: #### H CVPCRR #### [facility] [address] [place] [address] Dr. Gita Graham Lymphocytes/100 WBC (Bld) 25.0 % Normal 20.5-60.[address] [facility] Comment on above: Performed By: #### H CVPCRR #### [facility] [address] [place] [address] Dr. Gita Graham MANUAL DIFF REQ NO Normal [facility] Comment on above: Performed By: #### H CVPCRR #### [facility] [address] [place] [address] Dr. Gita Graham MCH (RBC) [Entitic mass] 27.6 pg Normal 26.7-34.[address] [facility] Comment on above: Performed By: #### H CVPCRR #### [facility] [address] [place] [address] Dr. Gita Graham MCHC (RBC) [Mass/Vol] 33.5 g/dL Normal 29.9-35.[address] [facility] Comment on above: Performed By: #### H CVPCRR #### [facility] [address] [place] [address] Dr. Gita Graham MCV (RBC) [Entitic vol] 82.5 fL Normal 81.0-99.[address] [facility] Comment on above: Performed By: #### H CVPCRR #### [facility] [address] [address] [address] Gita Graham MONO # 0.2 103/ul Critically low 0.3-0.8 [facility] Comment on above: Performed By: #### H CVPCRR #### [facility] [address] [address] [address] Gita Graham Monocytes/100 WBC (Bld) 3.7 % Normal 1.7-12.0 [facility] Comment on above: Performed By: #### H CVPCRR #### [facility] [address] [address] [address] Gita Graham NEUT # 3.6 103/ul Normal 1.4-6.[address] [facility] Comment on above: Performed By: #### H CVPCRR #### [facility] [address] [place] [address] Dr. Gita Graham Neutrophils/100 WBC (Bld) 69.9 % Normal 43.0-75.[address] [facility] Comment on above: Performed By: #### H CVPCRR #### [facility] [address] [place] [address] Dr. Gita Graham Platelet mean volume (Bld) [Entitic vol] 10.4 fL Normal 9.5-13.[address] [facility] Comment on above: Performed By: #### H CVPCRR #### [facility] [address] [place] [address] Dr. Gita Graham PLT 211 103/ul Normal 150-450 [facility] Comment on above: Performed By: #### H CVPCRR #### [facility] [address] [place] [address] Dr. Gita Graham RBC 4.74 106/ul Normal 4.20-5.40 [facility] Comment on above: Performed By: #### H CVPCRR #### [facility] [address] [place] [address] Dr. Gita Graham WBC 5.2 103/ul Normal 4.0-11.0 [facility] Comment on above: Performed By: #### H CVPCRR #### [facility] [address] [address] [address] Gita Graham CULTURE URINEon 04-07-2022 CULTURE URINE Culture Observations : NO GROWTH. Normal [facility] Comment on above: Performed By: #### U RCX #### [facility] [address] [place] [address] Dr. Gita Graham GLYCOHEMOGLOBIN A1Con 2021 ADA RECOMMENDATION SEE BELOW Normal [facility] Comment on above: Result Comment: ADA RECOMMENDED LIMIT 4.0 - 6.0 ADA THERAPEUTIC TARGET < 7.0 ACTION SUGGESTED > 7.0 Performed By: #### H CVPCRR #### [facility] [address] [place] [address] Dr. Gita Graham Glucose [Mass/Vol] 105 mg/dL Normal [facility] Comment on above: Performed By: #### H CVPCRR #### [facility] [address] [place] [address] Dr. Gita Graham HbA1c (Bld) [Mass fraction] 5.3 % Normal 4.5-6.[address] [facility] Comment on above: Performed By: #### H CVPCRR #### [facility] [address] [place] [address] Dr. Gita Graham KAILASH BOX TEST PT SEND OUTo n 04-07-2022 SENT TO REF LAB 04/07/2022 Normal [facility] Comment on above: Performed By: #### H CVPCRR #### [facility] [address] [place] [address] Dr. Gita Graham TYPE AND SCREENon 04-07-2022 TYPE AND SCREEN Negative Normal [facility] Comment on above: Performed By: #### H EPACUT #### [facility] [address] [place] [address] Dr. Gita Graham US PREG TVon 03-22-2022 [...] ELMO GOETZ Date: 2022-03-22 16:47 Normal [facility] CHLAMYDIA/GONOCOCCUS PADMINI (SW AB/URINE/PAPon 03-12-2022 Chlamydia trachomatis, PADMINI Negative Normal Negative [facility] Comment on above: Performed By: #### C T/NGNA #### [facility] [address] [place] [address] Dr. Gita Graham Neisseria gonorrhoeae, PADMINI Negative Normal Negative [facility] Comment on above: Performed By: #### C T/NGNA #### [facility] [address] [place] [address] Dr. Gita Graham VAGINITIS/VAGINOSIS DNA PROB Isaias 03-11-2022 Crystal species Negative Normal Negative [facility] Comment on above: Performed By: #### H CVPCRR #### [facility] [address] [place] [address] Dr. Gita Graham Gardnerella vaginalis Positive Abnormal Negative [facility] Comment on above: Performed By: #### H CVPCRR #### [facility] [address] [place] [address] Dr. Gita Graham Trichomonas vaginalis Negative Normal Negative [facility] Comment on above: Performed By: #### H CVPCRR #### [facility] [address] [place] [address] Dr. Gita Graham HEPATITIS PANEL, ACUTEon HBsAg Screen Negative Normal Negative [facility] Comment on above: Performed By: #### H EPACUT #### [facility] [address] [place] [address] Dr. Gita Graham HCV AB <0.1 Normal 0.0-0.[address] [facility] Comment on above: Performed By: #### H EPACUT #### [facility] [address] [address] [address] Gita Graham Hep A Ab, IgM Negative Normal Negative [facility] Comment on above: Performed By: #### H EPACUT #### [facility] [address] [address] [address] iGta Graham Hep B Core Ab, IgM Negative Normal Negative [facility] Comment on above: Performed By: #### H EPACUT #### [facility] [address] [place] [address] Dr. Gita Graham Interpretation: Comment Normal [facility] Comment on above: Result Comment: Nega tive Not infected with HCV, unless recent infection is suspected or other evidence exists to indicate HCV infection. Performed By: #### H EPACUT #### [facility] [address] [place] [address] Dr. Gita Graham HERPES SIMPLEX 1/2 IGGon HSV 1 IgG, Type Spec <0.91 Normal 0.00-0.[address] [facility] Comment on above: Result Comment: Nega tive <0.91 Equivocal 0.91 - 1.09 Positive >1.09 Note: Negative indicates no antibodies detected to HSV-1. Equivocal may suggest early infection. If clinically appropriate, retest at later date. Positive indicates antibodies detected to HSV-1. Performed By: #### H SV IGG #### [facility] [address] [place] [address] Dr. Gita Graham HSV 2 IgG Type Spec 8.69 index Critically high 0.00-0.[address] [facility] Comment on above: Result Comment: Nega tive <0.91 Equivocal 0.91 - 1.09 Positive >1.09 Note: Negative indicates no HSV-2 antibodies detected. Positive indicates HSV-2 antibodies detected. Equivocal and low positive HSV-2 screens (Index 0.91-5.00) may be false positive and are reflexed to supplemental testing in accordance with CDC guidelines. Performed By: #### H SV IGG #### [facility] [address] [place] [address] Dr. Gita Graham HIV 1 AND 2 WITH REFLEXon HIV Screen 4th Generation wRfx Non-Reactive Normal Non Reactive [facility] Comment on above: Result Comment: HIV Negative HIV-1/HIV-2 antibodies and HIV-1 p24 antigen were NOT detected. There is no laboratory evidence of HIV infection. Performed By: #### H IV12 #### [facility] [address] [place] [address] Dr. Gita Graham RPR QUANTon 03-09-2022 Rapid Plasma Reagin, Quant Non-Reactive Normal NonRea<1:[address] [facility] Comment on above: Result Comment: Plea se Note: This test does not meet current guidelines for screening and diagnosis of syphilis. This test is intended for following treatment response in patients being treated for syphilis infection. To screen for syphilis infection, a reflex cascade that includes both RPR and a treponema-specific assay should be utilized, such as Treponema pallidum (Syphilis) Screening [place] (612149) or Rapid Plasma Reagin (RPR) Test With Reflex to Quantitative RPR and Confirmatory Treponema pallidum Antibodies (450118). Performed By: #### H EPACUT #### [facility] [address] [place] [address] Dr. Gita Graham PREG QUANT HCGon 03-08-2022 HCG QUANT 27120 mIU/mL Normal [facility] Comment on above: Performed By: #### H EPACUT #### [facility] [address] [place] [address] Dr. Gita Graham HCG RANGE SEE BELOW Normal [facility] Comment on above: Result Comment: 5-50 0.2-1 WEEK 50-500 1-2 WEEKS 100-5,000 2-3 WEEKS 500-10,000 3-4 WEEKS 1,000-50,000 4-5 WEEKS 10,000-100,000 5-6 WEEKS 15,000-200,000 6-8 WEEKS 10,000-100,000 2-3 MONTHS Performed By: #### H EPACUT #### [facility] [address] [place] [address] Dr. Gita Graham B-HCG SerPl-aCn[place] 2 [place] [address].0 m[IU]/mL High <5.0 [facility] Comment on above: Order Comment: Speci men Type: BLOOD SPECIMENOrdering Facility: [facility] Address: [address] [place] [address] Result Comment: OTTO TITATIVE HCG NORMAL RANGES Weeks of Gestation (Weeks Since LMP) 3 Weeks (5.8-71.2 mIU/mL) 4 Weeks (9.5-750 mIU/mL) 5 Weeks (217-7138 mIU/mL) 6 Weeks (158-28786 mIU/mL) 7 Weeks (3697-640130 mIU/mL) 8 Weeks (64582-750913 mIU/mL) 9 Weeks (39136-004597 mIU/mL) 10 Weeks (36913-189476 mIU/mL) 12 Weeks (55696-435757 mIU/mL) Referenced to 4th IS of [facility] Performed By: #### 2 1198-7 ####[facility] LABORATORYCLIA [id number] [address] Amie 03-01-2022 CNPN Telephone (OBGWMA) -------- BRIANNE SMITH ([id number]) 1995 F Date Time Provider Department 03/01/22 RENATA JURADO During your visit today, we recorded the following information about you: Poly Stapleton RN 03/01/2022 12:57 PM Signed Aware of results and transferred to [facility]. Poly Stapleton RN HC,031 (6-7 wk) LMP:8.17.2021 Allergies As of Date: 03/01/2022 (No Known Allergies) Date Reviewed: 02/10/2022 Reviewed by: DO Anibal Li Fully Assessed Reason for Visit: Results [95] [...] Encounter Status:Closed by POLY STAPLETON on 03/01/22 [facility] TYPE + SCREENon 03-01-2022 ABO A [facility] Comment on above: Order Comment: Speci men Type: BLOOD SPECIMENOrdering Facility: [facility] Address: [address] [place] [address] Performed By: #### T SCR ####[facility] BLOOD BANKCLIA [id number] [address] HISTORICAL AB SCR STATUS Negative [facility] Comment on above: Order Comment: Speci men Type: BLOOD SPECIMENOrdering Facility: [facility] Address: [address] [place] [address] Performed By: #### T SCR ####[facility] BLOOD BANKCLIA [id number] [address] Rh Nom (Bld) Positive [facility] Comment on above: Order Comment: Speci men Type: BLOOD SPECIMENOrdering Facility: [facility] Address: [address] [place] [address] Performed By: #### T SCR ####[facility] BLOOD BANKCLIA [id number] [address] TYPE AND SCREEN EXPIRATION 03/04/2022 23:59 [facility] Comment on above: Order Comment: Speci men Type: BLOOD SPECIMENOrdering Facility: [facility] Address: [address] [place] [address] Performed By: #### T SCR ####[facility] BLOOD BANKCLIA [id number] [address] OF [place] CNPNon 02-26-2022 CNPN Telephone (OBGWMA) -------- BRIANNE SMITH ([id number]) 1995 F Date Time Provider Department 02/26/22 RENATA JURADO OBGWMA During your visit today, we recorded the following information about you: Poly Stapleton RN 02/26/2022 2:24 PM Signed Pos HT. LMP:8.10. HCG and TANDS pended. Poly Stapleton RN Allergies As of Date: 02/26/2022 (No Known Allergies) Date Reviewed: 02/10/2022 Reviewed by: DO Anibal Li Fully Assessed Reason for Visit: Orders [681] Primary Visit Diagnosis:Secondary amenorrhea [N91.1] Order(s):HCG QUANTITATIVE [SQHCGQT] Order #: [id number] FUTURE TYPE + SCREEN [SQTSCR] Order #: [id number] FUTURE Prescriptions as of 02/26/2022 - medroxyPROGESTERone [...] syndrome) [E28.2] 08/12/2021 Encounter Status:Closed by RENATA JURADO on 02/26/22 [facility] CNCOon 02-08-2022 CNCO Letter Text 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 Negative for abnormal vaginal [...] direction and in the presence of Renata Jurado DO Electronically Signed: Hunter Greene. February 08, 2022 11:27 AM. I agree with the Chief Complaint, ROS, and Past Histories independently gathered by the clinical accounting support specialist and the remaining scribed note accurately describes my personal service to the patient. SIGNATURE: Renata Jurado DO DATE of SERVICE: 02/08/22 TIME of SERVICE: 11:27 AM Referring Provider: RENATA JURADO [[id number]] Allergies As of Date: 02/08/2022 (No Known Allergies) Date Reviewed: 02/08/2022 Reviewed by: Renata Jurado DO - Fully Assessed Reason for Visit: Follow Up [171] Cmt: Pcos follow up 6 months Primary Visit Diagnosis:PCOS (polycystic ovarian syndrome) [E28.2] Other Visit Diagnosis:Trichomoniasis [A59.9] Order(s):T VAGINALIS AMPLIFICATION [SQTRVAMP] Order #: [id number] FUTURE HCG QUAL UR B/O [1238608] Order #: [id number] medroxyPROGESTERone (PROVERA) 10 mg table (more content not included)... Normal [facility] [facility] 11-07-2021 LEONILA Telephone (OBGWMA) -------- BRIANNE SMITH ([id number]) 1995 F Date Time Provider Department 11[facility]07[facility] During your visit today, we recorded the [...] GLADYS VALDOVINOS on 11/07/21 Normal [facility] C. trachomatis+N. gonorrhoea e DNA PADMINI+probe Ql (Unsp spec)on 11-01-2021 C. trachomatis DNA PADMINI+probe Ql (Unsp spec) Negative Normal Negative for Chlamydia trachomatis by amplificaton [facility] Comment on above: Order Comment: Speci men Type: SWABOrdering Facility: [facility] Address: [address] [place] [address] Performed By: #### 3 6902-5 ####[facility] LABORATORYCLIA [id number] [address] [facility] N. gonorrhoeae DNA PADMINI+probe Ql (Unsp spec) Negative Normal Negative for Neisseria gonorrhoeae by amplification [facility] Comment on above: Order Comment: Speci men Type: SWABOrdering Facility: [facility] Address: [address] [place] [address] Performed By: #### 3 6902-5 ####[facility] LABORATORYCLIA [id number] [address] [place] CNCOon 11-01-2021 CNCO Letter Text Normal [facility] CNOVon 11-01-2021 CNOV Office Visit (ANDREAO B) -------- BRIANNE SMITH ([id number]) 1995 F Date Time Provider Department 11/01/21 [...] Do not go to the outlying ER?s (Suleman Ludwig or Ronal). - If you need to go to an ER and cannot or will not go downtown, please use one of [facility] (mariluz Shepard, Edgard or Elsie). La Holm, 11/01/2021 8:47 AM Signed Addended by: LA HOLM on: 11/01/2021 08:47 AM Modules accepted: Orders Referring Provider: SELF [200] Allergies As of Date: 11/01/2021 (No Known Allergies) Date Reviewed: 11/01/2021 Reviewed by: Hailee Leon LPN - Fully Assessed Reason for Visit: Vaginal Discharge [4161] Cmt: itching Primary Visit Diagnosis:Vulvar itching [L29.2] Order(s):FUNGAL SMEAR [SQFUNGSM] Order #: [id number]. #:[id number] TRICHOMONAS PREP/ANTIGEN [SQTRICHO] Order #: [id number]. #:[id number] RAPID BACT VAGINOSIS (AK) [PSN0342] Order #: [id number]. #:[id number] GC/CHLAMYDIA DNA DET [SQGCCAMP] Order #: [id number]. #:[id number] metroNIDAZOLE (FLAGYL) 500 mg tabletTake 1 tablet [...] , go to the ER at the [facility]. Do not go to the outlying ER?s (Vani, Suleman or Ronal). - If you need to go to an ER and cannot or will not go downtown, please use one of [facility]?s ER?s (not [facility], [facility] or [facility]). Prescriptions ordered this encounter Disp Refills Start End METRONIDAZOLE 500 MG TABLET 14 t* 0 11/01/2021 Route: ORAL Sig: Take 1 tablet by mouth twice daily. for vaginosis. Do not drink alcohol while taking this medication Encounter Status:Closed by LA HOLM on 11/01/21 Normal [facility] FUNGAL SMEARon 11-01-2021 FUNGAL SMEAR FUNGAL SMEAR: No fungus seen Normal [facility] Comment on above: Performed By: #### F UNGSM ####[facility] LABORATORYCLIA [id number] [address] [place] RAPID BACT VAGINOSIS (AK)on 11-01-2021 Bacterial sialidase Ql (Unsp spec) Negative Normal Negative for the presence of bacterial vaginosis. [facility] Comment on above: Order Comment: Speci men Type: MICROBIAL ISOLATE [facility] Facility[facility] Address: [address] [place], [place] [address] Performed By: #### R APBVAG #### [facility] CLIA [id number] [address] [place] T vaginalis Ag Genital Ql IA on 11-01-2021 T. vaginalis Ag IA Ql (Genital specimen) TRICHOMONAS PREP RESULT: Positive for Trichomonas vaginalis antigen Abnormal [facility] Comment on above: Performed By: #### 6 566-4 ####[facility] LABORATORYCLIA [id number] [address] [place] CNPAnne-Marie 09-12-2021 CNPN Telephone (OBGWMA) -------- BRIANNE SMITH ([id number]) 1995 F Date Time Provider Department 09/12/21 RENATA JURADO During your visit today, we recorded the [...] day 3 of next menses. Thanks. Renata Jurado DO Allergies As of Date: 09/12/2021 (No Known Allergies) Date Reviewed: 08/12/2021 Reviewed by: Renata Jurado DO - Fully Assessed Reason for Visit: Orders [681] Primary Visit Diagnosis:PCOS (polycystic ovarian syndrome) [E28.2] Order(s):PROGESTERONE BLD [SQPROG] Order #: [id number] FUTURE Problem List As Of Date 09/12/2021 Noted Resolved PCOS (polycystic ovarian syndrome) [E28.2] 08/12/2021 Encounter Status:Closed by RENATA JURADO on 09/12/21 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 Normal [facility] CNOV Office Visit (OBGWMA ) -------- BRIANNE SMITH ([id number]) 1995 F Date Time Provider Department 08/10/21 11:00 AM [employer]TR[employer] WORK[employer] W MARKETOBGWMA During your visit today, we recorded the following information about you: Referring Provider: RENATA JURADO [[id number]] Allergies As of Date: 08/10/2021 (No Known Allergies) Date Reviewed: 08/10/2021 Reviewed by: Michelle Case LPN - Fully Assessed Reason for Visit: Us Procedure [4086] Visit Diagnosis:Irregular menses [N92.6] Problem List As Of Date: 08/10/2021 (None) Encounter Status:Closed by TAHIR MORA on 08/10/21 Normal [facility] BIOAVAIL TESTO/SHBG, FEM AND CHILDon 07-10-2021 SEX HORMONE BIND GLB 61 nmol/L Normal 30-135 [facility] Comment on above: Order Comment: Speci men Type: BLOOD SPECIMEN [facility] Address: [address] [place] [address] Result Comment: (NOT E) REFERENCE INTERVAL: Sex Hormone Binding Globulin Access complete set of age- and/or gender-specific reference intervals for this test in the [employer] Laboratory Test Directory (KUBOO). Performed By: #### H PROG, BTSTFC #### [facility] CLIA [id number] [address] [place] [id number] [place] TESTO BIOAVAILABLE 9.8 ng/dL Normal 2.2-20.6 [facility] Comment on above: Order Comment: Speci men Type: BLOOD SPECIMEN [facility]ing Facility[facility] Address: [address] [place] [address] Result Comment: (NOT E) Testosterone LC-MS, Bioavailable Reference Interval Females, 18 years and older Postmenopausal: 1.5 - 9.4 ng/dL REFERENCE INTERVAL: Testosterone LC-MS, Bioavailable Access complete set of age- and/or gender-specific reference intervals for this test in the [employer] Laboratory Test Directory (KUBOO). Performed By: #### H PROG BTSTFC #### [facility] CLIA [id number] [facility] NearwayMAR[place] [address] [place] Testosterone [Mass/Vol] 30 ng/dL Normal 9-55 [facility] Comment on above: Order Comment: Speci men Type: BLOOD SPECIMEN [facility] Address: [address] [place] [address] Result Comment: (NOT E) Total Testosterone, Females 18 years and older Premenopausal 9-55 ng/dL Postmenopausal 5-32 ng/dL REFERENCE INTERVAL: Testosterone, LC-MS/MS Access complete set of age- and/or gender-specific reference intervals for this test in the [employer] Laboratory Test Directory (KUBOO). This test was developed and its performance characteristics determined by [facility]. It has not been cleared or approved by the US Food and Drug Administration. This test was performed in a CLIA certified laboratory and is intended for clinical purposes. Performed By: #### H G BTSTFC #### [facility] CLIA [id number] [facility] NearwayD [facility] [address] [place] TESTOSTERONE FREE 3.4 pg/mL Normal 0.8-7.4 [facility] Comment on above: Order Comment: Speci men Type: BLOOD SPECIMEN [facility] Address: [address] [place] [address] Result Comment: (NOT E) Testosterone, Free LC-MS/MS [...] reference intervals for this test in the [employer] Laboratory Test Directory (KUBOO). This test was developed and its performance characteristics determined by [facility]. It has not been cleared or approved by the US Food and Drug Administration. This test was performed in a CLIA certified laboratory and is intended for clinical purposes. Performed by [facility], [address] [place] [address] [email or web address], Makayla Aparicio MD, Lab. Director Performed By: #### H TIFFANY, BTSTFC #### [facility] CLIA [id number] [address] [id number] [address] [place] CNCOon 07-10-2021 CNCO Letter Text Normal 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 Normal [facility] DHEA-S BLDon 07-10-2021 DHEA-S [Mass/Vol] 288.1 ug/dL Normal 98.8-340.0 [facility] Comment on above: Order Comment: Speci men Type: BLOOD SPECIMEN [facility] Facility[facility] Address: [address] [place] [address] Result Comment: Refe rence ranges are age and gender specific. For additional information, reference range tables can be found in the laboratory test directory. The normal values are based on the following source: Dehydroepiandrosterone sulfate (DHEA S) [package insert V 17.0 Slovenian]. [facility], [place], [place]: January 2013. Performed By: #### D WILBERTO #### [facility] CLIA [id number] [facility] [place] [address] [place] HYDROXYPROGESTERO-17on 07-10 17-Hydroxyprogeste dolly [Mass/Vol] 44.60 ng/dL Normal <=206.00 [facility] Comment on above: Order Comment: Speci men Type: BLOOD SPECIMEN [facility] Address: [address] [place] [address] Result Comment: (NOT E) INTERPRETIVE INFORMATION for 17-Hydroxyprogesterone in females: Follicular 15 to 70 ng/dL Luteal 35 to 290 ng/dL REFERENCE INTERVAL: 17-Hydroxyprogesterone Qnt, HPLC-MS/MS Access complete set of age- and/or gender-specific reference intervals for this test in the [employer] Laboratory Test Directory (KUBOO). This test was developed and its performance characteristics determined by [facility]. It has not been cleared or approved by the US Food and Drug Administration. This test was performed in a CLIA certified laboratory and is intended for clinical purposes. Performed By: [facility] [address] [place] [address] Mass Spectrometry Specialist: Makayla Aparicio MD Performed By: #### H PROG, BTSTFC #### [facility] CLIA [id number] [address] [place] [id number] [place] T4 FREE/FREE THYROXon 2021 Free T4 [Mass/Vol] 1.4 ng/dL Normal 0.9-1.7 [facility] Comment on above: Order Comment: Speci men Type: BLOOD SPECIMEN Performed By: #### 3 016-3, FT4, TESTO #### [facility] CLIA [id number] [address] [place] TESTOSTERONE TOTALon 022 Testosterone [Mass/Vol] 37 ng/dL Normal 9-48 [facility] Comment on above: Order Comment: Speci men Type: BLOOD SPECIMEN Performed By: #### 3 016-3, FT4, TESTO #### [facility] CLIA [id number] [address] [place] TSH SerPl-aCncon 07-10-2021 TSH Qn 1.720 m[IU]/L Normal 0.270-4.200 [facility] Comment on above: Order Comment: Speci [...] Function tests in . Thyroid, 2019:29:3:412-420. Nilo E, et al. 2017 Guidelines of the [place] Thyroid Association for the Diagnosis and Management of Thyroid Disease during and the . Thyroid, 2017:27:3:315-389. Performed By: #### 3 016-3, FT4, TESTO #### [facility] CLIA [id number] [address] [place] Add On Lab Teston 08-17-2020 Sodium [Moles/Vol] Accepted [facility] Work Phone: Comment on above: Specimen available & acceptable for analysis. Test Performed by [facility] [employer], [facility] [place] [address] [facility]way Work Phone: Add on test from HISon 08-17 Add on test from HIS Accepted Normal [facility] Comment on above: Result Comment: Spec imen available & acceptable for analysis. Performed By: #### A DDON #### [place] [address] [place], [place] Comp Metabolic Panelon 08-17 ALP [Catalytic activity/Vol] 53 U/L Normal 38-126 [facility] Comment on above: Performed By: #### M G3, HEMDF, CMP3, LIPA4 #### [facility] [address] [place], [place] ALT [Catalytic activity/Vol] 506 U/L High 0-34 [facility] Comment on above: Result Comment: The ALT test is performed by an updated assay method. Please note that the reference intervals have been changed and are now sex specific. Performed By: #### M G3, HEMDF, CMP3, LIPA4 #### [facility] [address] [place], [place] AST [Catalytic activity/Vol] 259 U/L High 15-46 [facility] Comment on above: Performed By: #### M G3, HEMDF, CMP3, LIPA4 #### [facility] [address] [place], [place] Calcium [Mass/Vol] 9.1 mg/dL Normal 8.4-10.4 [facility] Comment on above: Performed By: #### M G3, HEMDF, CMP3, LIPA4 #### [facility] [address] [place], [place] Glucose [Mass/Vol] 150 mg/dL High 70-100 [facility] Comment on above: Performed By: #### M G3, HEMDF, CMP3, LIPA4 #### [facility] [address] [place], [place] Protein [Mass/Vol] 8.0 g/dL Normal 6.3-8.2 [facility] Comment on above: Performed By: #### M G3, HEMDF, CMP3, LIPA4 #### [facility] [address] [place], [place] Urea nitrogen [Mass/Vol] 3 mg/dL Low 7-20 [facility] Comment on above: Performed By: #### M G3, HEMDF, CMP3, LIPA4 #### [facility] [address] [place], [place] Anion gap [Moles/Vol] 9 mmol/L Normal 3-13 [facility] Comment on above: Performed By: #### M G3, HEMDF, CMP3, LIPA4 #### [place] [address] [address] [place], [place] Bilirubin [Mass/Vol] 1.0 mg/dL Normal 0.2-1.3 [facility] Comment on above: Performed By: #### M G3, HEMDF, CMP3, LIPA4 #### [place] [address] [place], [place] CO2 [Moles/Vol] 38 mmol/L High 22-30 [facility] Comment on above: Performed By: #### M G3, HEMDF, CMP3, LIPA4 #### [place] [address] [place], [place] Creatinine [Mass/Vol] 0.84 mg/dL Normal 0.52-1.25 [facility] Comment on above: Performed By: #### M G3, HEMDF, CMP3, LIPA4 #### [place] [address] [address] [place], [place] GFR/1.73 sq M predicted among blacks MDRD (S/P/Bld) [Vol rate/Area] mL/min/{1.73_m2} Normal >60 [facility] Comment on above: Performed By: #### M G3, HEMDF, CMP3, LIPA4 #### [place] [address] [address] [place], [place] GFR/1.73 sq M predicted among non-blacks MDRD (S/P/Bld) [Vol rate/Area] mL/min/{1.73_m2} Normal >60 [facility] Comment on above: Result Comment: KDIG [...] #### M G3, HEMDF, CMP3, LIPA4 #### [place] [address] [address] [place], [place] Albumin [Mass/Vol] 4.3 g/dL Normal 3.5-5.0 [facility] Comment on above: Performed By: #### M G3, HEMDF, CMP3, LIPA4 #### [place] [address] [place], [place] Chloride [Moles/Vol] 88 mmol/L Low 98-107 [facility] Comment on above: Performed By: #### M G3, HEMDF, CMP3, LIPA4 #### [place] [address] [place], [place] Potassium [Moles/Vol] 3.0 mmol/L Low 3.5-5.1 [facility] Comment on above: Performed By: #### M G3, HEMDF, CMP3, LIPA4 #### [place] [address] [place], [place] Sodium [Moles/Vol] 135 mmol/L Normal 135-145 [facility] Comment on above: Performed By: #### M G3, HEMDF, CMP3, LIPA4 #### [place] [address] [place], [place] Complete Urinalysison 2020 Appearance (U) Turbid Abnormal Clear [facility] Comment on above: Result Comment: . Performed By: #### C UA2 ####[place] [id number] [place], [place] Bacteria LM.HPF (Urine sed) [#/Area] Few Abnormal Negative [facility] Comment on above: Result Comment: . Performed By: #### C UA2 ####[place] [address] [place], [place] Bilirubin,Urine Negative Normal Negative [facility] Comment on above: Result Comment: . Performed By: #### C UA2 ####[facility] [id number] [place], [place] Cast, Hyaline Negative Normal Negative [facility] Comment on above: Result Comment: . Performed By: #### C UA2 ####[place] [id number] . [place], [place] Color (U) Yellow Normal Lt. Yellow [facility] Comment on above: Result Comment: . Performed By: #### C UA2 ####[facility] [address] [place], [place] Glucose Ql (U) Normal Normal Normal (<70) [facility] Comment on above: Result Comment: . Performed By: #### C UA2 ####[facility] [address] Ketone,Urine Negative Normal Negative [facility] Comment on above: Result Comment: . Performed By: #### C UA2 ####[facility] [address] [place], [place] Leukocytes,Urine Negative Normal Negative [facility] Comment on above: Result Comment: . Performed By: #### C UA2 ####[facility] [id number] [place], [place] Mucous Threads Few Normal Negative [facility] Comment on above: Result Comment: . Performed By: #### C UA2 ####[facility] [address] [place], [place] Nitrites,Urine Negative Normal Negative [facility] Comment on above: Result Comment: . Performed By: #### C UA2 ####[facility] [id number] . [place], [place] Non-Squamous Epithelial 2 /[HPF] Abnormal Negative [facility] Comment on above: Result Comment: . Performed By: #### C UA2 ####[facility] [id number] [place], [place] Occult Blood,Urine Negative Normal Negative [facility] Comment on above: Result Comment: . Performed By: #### C UA2 ####[address] pH (U) 6.5 Normal 5.0-8.0 [facility] Comment on above: Result Comment: . Performed By: #### C UA2 ####[address] Protein (U) [Mass/Vol] 10 mg/dL Abnormal Negative [facility] Comment on above: Result Comment: . Performed By: #### C UA2 ####[facility] [address] RBC LM.HPF (Urine sed) [#/Area] 0 - 2 Normal 0-2 [facility] Comment on above: Result Comment: . Performed By: #### C UA2 ####[address] Specific [place],Urine 1.006 Normal 1.005 - 1.030 [facility] Comment on above: Result Comment: . Performed By: #### C UA2 ####[facility] [address] Squamous Epithelial 11 - 25 Abnormal 3-5 [facility] Comment on above: Result Comment: . Performed By: #### C UA2 ####[address] Urobilinogen,Urine Normal Normal Normal (0-1) [facility] Comment on above: Result Comment: . Performed By: #### C UA2 ####[address] WBC LM.HPF (Urine sed) [#/Area] 11 - 25 Abnormal 0-5 [facility] Comment on above: Result Comment: . Performed By: #### C UA2 ####[address] Comprehensive Metabolic Pane olivia 08-17-2020 Albumin [Mass/Vol] 4.3 g/dL 3.5 - 5.0 g/dL [facility] Work Phone: ALP [Catalytic activity/Vol] 53 U/L 38 - 126 U/L [facility] Work Phone: [phone] ALT [Catalytic activity/Vol] 506 U/L High 0 - 34 U/L [facility] Work Phone: [phone] Comment on above: The ALT test is perf ormed by an updated assay method. Please note that the reference intervals have been changed and are now sex specific. Anion gap [Moles/Vol] 9 mmol/L 3 - 13 mmol/L [facility] Work Phone: [phone] [Catalytic activity/Vol] 259 U/L High 15 - 46 U/L [facility] Work Phone: [phone] Bilirubin Ql (U) 1.0 mg/dL 0.2 - 1.3 mg/dL [facility] Work Phone: [phone] Calcium [Mass/Vol] 9.1 mg/dL 8.4 - 10. 4 mg/dL [facility] Work Phone: [phone] Chloride [Moles/Vol] 88 mmol/L Low 98 - 107 mmol/L [facility] Work Phone: [phone] CO2 [Moles/Vol] 38 mmol/L High 22 - 30 mmol/L [facility] Work Phone: [phone] Creatinine [Mass/Vol] 0.84 mg/dL 0.52 - 1.25 mg/dL [facility] Work Phone: [phone] EGFR IF NonAfrican Hungarian >90.0 >60 mL/min [facility] Work Phone: [phone] Comment on above: KDIGO guidelines pro vide [...] Interpretation and review of laboratory results Abnormal [facility] Work Phone: Potassium [Moles/Vol] 3.0 mmol/L Low 3.5 - 5.1 mmol/L [facility] Work Phone: Protein [Mass/Vol] 8.0 g/dL 6.3 - 8.2 g/dL [facility] Work Phone: Sodium [Moles/Vol] 135 mmol/L 135 - 145 mmol/L [facility] Work Phone: Urea nitrogen [Mass/Vol] 3 mg/dL Low 7 - 20 mg/dL [facility] Work Phone: ED Provider Noteon 1 [facility] Patient: Brianne Smith : 1995 Date of Evaluation: 08/17/2020 ED PATTI Provider: MISHEL Holly CNP Chief Complaint Chief Complaint Patient presents with ? Emesis off and on for past 2 weeks; states increased personal stress recently ue to of her bother; DEERING Brianne Smith is a 25 y.o. female [...] otherwise acutely negative except as in the DEERING. Past History Past Medical History: Diagnosis Date [...] Monthly or less Comment: on holidays and birth only ? Drug use: Never ? Sexual activity: Yes Partners: Male Lifestyle ? Physical activity Days per week: None Minutes per session: None ? Stress: None Relationships ? Social connections Talks on phone: None Gets together: None Attends jewish service: None Active member of club or [...] eGFR >90.0 >60 mL/min EGFR IF NonAfrican Hungarian >90.0 >60 mL/min Calcium 9.1 8.4 - [...] # 1.4 1.0 - 4.3 10*3/uL Absolute [place] # 0.5 0.0 - 0.8 10*3/uL Absolute [...] Urine 6.5 5.0 - 8.0 NA Specific [place], Urine 1.006 1.005 - 1.030 NA Occult [...] Last AUG action: Stopped - by JEANIE HAYES on 08/17/20 at 1553 FAY V[address]ARDE 08/17/20 [...] by GINA BLAKELY on 08/17/20 at 1033 ENGLEHART, FAY Final Impression 1. Nausea and vomiting, intractability [...] occasionally words aremis-transcribed.) Fay Velarde APRN - [facility] [employer] Fay Velarde APRN - YOSI 08/17/20 1737 Fay Velarde APRN - YOSI 08/17/20 1738 Fay Velarde APRN - [employer] 08/17/20 1739 Normal [facility] Hemogram (CBC) w/Auto Diffon 08-17-2020 Absolute Baso # 0.0 10*3/uL 0.0 - 0.2 10*3/uL [facility] Work Phone: 22 Absolute Neut # 1.8 10*3/uL 1.8 - 7.0 10*3/uL [facility] Work Phone: 22 Basophils/100 WBC (Bld) 0.4 % 0.0 - 2.0 % [facility] Work Phone: Eosinophils (Bld) [#/Vol] 0.0 10*3/uL 0.0 - 0.5 10*3/uL [facility] Work Phone: 22 Eosinophils/100 WBC (Bld) 0.3 % Low 1.0 - 6.0 % [facility] Work Phone: 22 Erythrocyte distribution width (RBC) [Ratio] 13.6 % 11.5 - 14.5 % [facility] Work Phone: 22 Granulocytes/100 WBC (Bld) 48.8 % 40.0 - 80.0 % [facility] Work Phone: 22 Hematocrit (Bld) [Volume fraction] 41.0 % 35.0 - 47.0 % [facility] Phone: 22 Hemoglobin (Bld) [Mass/Vol] 13.5 g/dL 11.7 - 16.0 g/dL [facility] Work Phone: 1 Interpretation and review of laboratory results Abnormal [facility] Work Phone: 1 Lymphocytes (Bld) [#/Vol] 1.4 10*3/uL 1.0 - 4.3 10*3/uL [facility] Work Phone: 1 Lymphocytes/100 WBC (Bld) 37.1 % 20.0 - 40.0 % [facility] Work Phone: MCH (RBC) [Entitic mass] 27.0 pg 26.0 - 34.0 pg [facility] Work Phone: 1 MCHC (RBC) [Mass/Vol] 32.9 % 32.0 - 36.0 % [facility] Work Phone: MCV (RBC) [Entitic vol] 82.0 fL 79.0 - 98.0 fL [facility] Work Phone: Monocytes (Bld) [#/Vol] 0.5 10*3/uL 0.0 - 0.8 10*3/uL [facility] Work Phone: 1 Monocytes/100 WBC (Bld) 13.4 % High 2.0 - 10.0 % [facility] Work Phone: Platelet mean volume (Bld) [Entitic vol] 8.3 fL 7.4 - 10.4 fL [facility] Work Phone: Platelets (Bld) [#/Vol] 226 10*3/uL 140 - 440 10*3/uL [facility] Work Phone: RBC (Bld) [#/Vol] 5.01 10*6/uL 3.80 - 5.2 0 10*6/uL [facility] Work Phone: WBC (Bld) [#/Vol] 3.7 10*3/uL 3.6 - 10.7 10*3/uL [facility] Work Phone: Test Performed by [facility], [address] [place] [id number] [facility] Work Phone: Hemogram w/ Autodiffon 08-17 Abs Baso Cnt 0.0 10*3/uL Normal 0.0-0.2 [facility] Comment on above: Performed By: #### M G3, HEMDF, CMP3, LIPA4 #### [facility] [address] [place], [place] Abs Neutrophile Cnt 1.8 10*3/uL Normal 1.8-7.0 [facility] Comment on above: Performed By: #### M G3, HEMDF, CMP3, LIPA4 #### [place] [address] [address] [place], [place] Basophils/100 WBC (Bld) 0.4 % Normal 0.0-2.0 [facility] Comment on above: Performed By: #### M G3, HEMDF, CMP3, LIPA4 #### [place] [address] [place], [place] Eosinophils (Bld) [#/Vol] 0.0 10*3/uL Normal 0.0-0.5 [facility] Comment on above: Performed By: #### M G3, HEMDF, CMP3, LIPA4 #### [place] [address] [place], [place] Eosinophils/100 WBC (Bld) 0.3 % Low 1.0-6.0 [facility] Comment on above: Performed By: #### M G3, HEMDF, CMP3, LIPA4 #### [place] [address] [place], [place] Erythrocyte distribution width (RBC) [Ratio] 13.6 % Normal 11.5-14.5 [facility] Comment on above: Performed By: #### M G3, HEMDF, CMP3, LIPA4 #### [place] [address] [address] [place], [place] Granulocytes/100 WBC (Bld) 48.8 % Normal 40.0-80.0 [facility] Comment on above: Performed By: #### M G3, HEMDF, CMP3, LIPA4 #### [place] [address] [place], [place] Hematocrit (Bld) [Volume fraction] 41.0 % Normal 35.0-47.0 [facility] Comment on above: Performed By: #### M G3, HEMDF, CMP3, LIPA4 #### [place] [address] [place], [place] Hemoglobin (Bld) [Mass/Vol] 13.5 g/dL Normal 11.7-16.0 [facility] Comment on above: Performed By: #### M G3, HEMDF, CMP3, LIPA4 #### [place] [address] [place], [place] Lymphocytes (Bld) [#/Vol] 1.4 10*3/uL Normal 1.0-4.3 [facility] Comment on above: Performed By: #### M G3, HEMDF, CMP3, LIPA4 #### [place] [address] [place], [place] Lymphocytes/100 WBC (Bld) 37.1 % Normal 20.0-40.0 [facility] Comment on above: Performed By: #### M G3, HEMDF, CMP3, LIPA4 #### [place] [address] [address] [place], [place] MCH (RBC) [Entitic mass] 27.0 pg Normal 26.0-34.0 [facility] Comment on above: Performed By: #### M G3, HEMDF, CMP3, LIPA4 #### [place] [address] [address] [place], [place] MCHC (RBC) [Mass/Vol] 32.9 % Normal 32.0-36.0 [facility] Comment on above: Performed By: #### M G3, HEMDF, CMP3, LIPA4 #### [place] [address] [place], [place] MCV (RBC) [Entitic vol] 82.0 fL Normal 79.0-98.0 [facility] Comment on above: Performed By: #### M G3, HEMDF, CMP3, LIPA4 #### [place] [address] [place], [place] Monocytes (Bld) [#/Vol] 0.5 10*3/uL Normal 0.0-0.8 [facility] Comment on above: Performed By: #### M G3, HEMDF, CMP3, LIPA4 #### [facility] [address] [place], [place] Monocytes/100 WBC (Bld) 13.4 % High 2.0-10.0 [facility] Comment on above: Performed By: #### M G3, HEMDF, CMP3, LIPA4 #### [place] [address] [address] [place], [place] Platelet mean volume (Bld) [Entitic vol] 8.3 fL Normal 7.4-10.4 [facility] Comment on above: Performed By: #### M G3, HEMDF, CMP3, LIPA4 #### [place] [address] [place], [place] Platelets (Bld) [#/Vol] 226 10*3/uL Normal 140-440 [facility] Comment on above: Performed By: #### M G3, HEMDF, CMP3, LIPA4 #### [place] [address] [address] [place], [place] RBC (Bld) [#/Vol] 5.01 10*6/uL Normal 3.80-5.20 [facility] Comment on above: Performed By: #### M G3, HEMDF, CMP3, LIPA4 #### [place] [address] [address] [place], [place] WBC (Bld) [#/Vol] 3.7 10*3/uL Normal 3.6-10.7 [facility] Comment on above: Performed By: #### M G3, HEMDF, CMP3, LIPA4 #### [place] [address] [address] [place], [place] Lipaseon 08-17-2020 Lipase [Catalytic activity/Vol] 183 U/L Normal 23-300 [facility] Comment on above: Performed By: #### M G3, HEMDF, CMP3, LIPA4 #### [place] [address] [address] [place], [place] Lipase [Catalytic activity/Vol] 183 U/L 23 - 300 U/L [facility] Work Phone: [phone] Magnesiumon 08-17-2020 Magnesium [Mass/Vol] 1.7 mg/dL Normal 1.6-2.3 [facility] [employer] Comment on above: Performed By: #### M G3, HEMDF, CMP3, LIPA4 #### [facility] [employer] [address] [place] [address] Magnesium [Mass/Vol] 1.7 mg/dL 1.6 - 2.3 mg/dL [facility] Work Phone: [phone] Test Performed by [facility], [address] [place] [id number] [facility] Work Phone: [phone] Otheron 08-17-2020 Test Performed by [facility] [employer], [address] [place] [address] [facility] Work Phone: [phone] Potassiumon 08-17-2020 Potassium [Moles/Vol] 3.5 mmol/L Normal 3.5-5.1 [facility] Comment on above: Performed By: #### K 3 ####[facility] [employer] [address] [place] [address] Potassium [Moles/Vol] 3.5 mmol/L 3.5 - 5.1 mmol/L [facility] Work Phone: [phone] Test Performed by [facility] [employer], [facility] [place] [address] [facility] Work Phone: [phone] Urinalysison 08-17-2020 Appearance (U) Turbid Abnormal Clear NA [facility] Work Phone: [phone] Comment on above: . Bacteria, UA Few Abnormal Negative /[HPF] [facility] Work Phone: 1 Comment on above: . Bilirubin Urine Negative Negative mg/dL [facility] Work Phone: [phone] Comment on above: . Color (U) Yellow Lt. Yellow NA [facility] Work Phone: [phone] Comment on above: . Glucose, Ur Normal Normal (<70) mg/dL [facility] Work Phone: [phone] Comment on above: . Hyaline Casts, UA Negative Negative /[LPF] [facility] Work Phone: [phone] Comment on above: . Interpretation and review of laboratory results Abnormal [facility] Work Phone: 1 Ketones Ql (U) Negative Negative mg/dL [facility] Work Phone: 1 Comment on above: . LEUKOCYTES, UA Negative Negative Henok/uL [facility] Work Phone: 1 Comment on above: . Mucous Threads Few Negative /[LPF] [facility] Work Phone: 1 Comment on above: . Nitrite, Urine Negative Negative NA [facility] Work Phone: 1 Comment on above: . Non-Squamous Epithelial 2 /[HPF] Abnormal Negative [facility] Work Phone: 1 Comment on above: . Occult Blood,Urine Negative Negative mg/dL [facility] Work Phone: 1 Comment on above: . pH (U) 6.5 [pH] [facility] Work Phone: 1 Comment on above: . Protein (U) [Mass/Vol] 10 mg/dL Abnormal Negative [facility] Work Phone: 1 Comment on above: . RBC (U) [#/Vol] 0-2 0 - 2 /[HPF] [facility] Work Phone: 1 Comment on above: . Specific [place], Urine 1.006 [facility] Work Phone: 1 Comment on above: . Squam Epithel, UA 11-25 Abnormal 3 - 5 /[HPF] [facility] Work Phone: 1 Comment on above: . Urobilinogen, Urine Normal Normal (0-1) mg/dL [facility] Work Phone: 1 Comment on above: . WBC, UA 11-25 Abnormal 0 - 5 /[HPF] [facility] Work Phone: 1 Comment on above: . Test Performed by [facility] [employer] [facility], [address] [place] [id number] [facility] Work Phone: [phone] CULTURE URINEon 02-07-2020 CULTURE URINE CULTURE URINE --> Status: F Normal urogenital thomas present. 1 Organism Escherichia coli >100,000 CFU/ml -------- 1 Organism -------- Antibiotic Result Intrp -------- Ampicillin(SPENSER) <= 2 S Cefazolin(SPENSER) <= 4 S Ceftriaxone(SPENSER) <= 1 S Cefepime(SPENSER) <= 1 S Aztreonam(SPENSER) <= 1 S Amoxicillin/Clavulanic Acid(SPENSER) <= 2 S Ampicillin/Sulbactam(SPENSER ) <= 2 S Pip/Tazobactam(SPENSER) <= 4 S Meropenem(SPENSER) <= 0.25 S Ciprofloxacin(SPENSER) <= 0.25 S Trimeth/Sulfa(SPENSER) <= 20 S Nitrofurantoin(SPENSER) <= 16 S Gentamicin(SPENSER) <= 1 S Amikacin(SPENSER) <= 2 S Normal [facility] Comment on above: Performed By: #### C /UR #### [place] [address] [place], [place] [address] [address] [place], [place] #### CUA2 #### [place] [address] [place], [place] Add on test from HISon 02-04 Add on test from [facility] Accepted Normal [facility] Comment on above: Result Comment: Spec imen available & acceptable for analysis. Performed By: #### A DDON #### [place] [address] [place], [place] Complete Urinalysison 2019 Appearance (U) Turbid Abnormal Clear [facility] Comment on above: Result Comment: . Performed By: #### C /UR #### [facility] [address] [place], [place] [facility] [address] [place], [place] #### CUA2 #### [facility] [address] [place], [place] Bacteria LM.HPF (Urine sed) [#/Area] Few Abnormal Negative [facility] Comment on above: Result Comment: . Performed By: #### C /UR #### [facility] [address] [place] [facility] [address] [place], [place] #### CUA2 #### [facility] [address] [place], [place] Bilirubin,Urine 1 mg/dL Abnormal Negative [facility] Comment on above: Result Comment: . Performed By: #### C /UR #### [facility] [address] [place] [facility] [address] [place], [place] #### CUA2 #### [facility] [address] [place], [place] Cast, Hyaline Negative Normal Negative [facility] Comment on above: Result Comment: . Performed By: #### C /UR #### [facility] [address] [place] [facility] [address] [place] #### CUA2 #### [facility] [address] [place], [place] Color (U) Dark-Yellow Abnormal Lt. Yellow [facility] Comment on above: Result Comment: . Performed By: #### C /UR #### [facility] [address] [place], [place] [facility] [address] [place], [place] #### CUA2 #### [facility] [address] [place], [place] Glucose Ql (U) Normal Normal Normal (<70) [facility] Comment on above: Result Comment: . Performed By: #### C /UR #### [facility] [address] [facility], [place] [facility] [address] [facility], [place] #### CUA2 #### [facility] [address] [facility], [place] Ketone,Urine Negative Normal Negative [facility] Comment on above: Result Comment: . Performed By: #### C /UR #### [facility] [address] [facility] [facility] [address] [facility], [place] #### CUA2 #### [facility] [address] [facility], [place] Leukocytes,Urine 500 Henok/uL Abnormal Negative [facility] Comment on above: Result Comment: . Performed By: #### C /UR #### [facility] [address] [place] [facility] [address] [place], [place] #### CUA2 #### [facility] [address] [facility] [place] Mucous Threads Few Normal Negative [facility] Comment on above: Result Comment: . Performed By: #### C /UR #### [facility] [address] [facility] [place] [facility] [address] [facility] #### CUA2 #### [facility] [address] [facility] [place] Nitrites,Urine Positive Abnormal Negative [facility] Comment on above: Result Comment: . Performed By: #### C /UR #### [facility] [address] [facility] [place] [facility] [address] [facility] #### CUA2 #### [facility] [address] [facility], [place] Non-Squamous Epithelial 1 /[HPF] Abnormal Negative [facility] Comment on above: Result Comment: . Performed By: #### C /UR #### [facility] [address] [place], [place] [facility] [address] [place], [place] #### CUA2 #### [facility] [address] [place] Occult Blood,Urine > 1.0 Abnormal Negative [facility] Comment on above: Result Comment: . Performed By: #### C /UR #### [facility] [address] [place] [facility] [address] [place] #### CUA2 #### [facility] [address] [place] pH (U) 6.0 Normal 5.0-8.0 [facility] Comment on above: Result Comment: . Performed By: #### C /UR #### [facility] [address] [place] [facility] [address] [place] #### CUA2 #### [facility] [address] [place] Protein (U) [Mass/Vol] 100 mg/dL Abnormal Negative [facility] Comment on above: Result Comment: . Performed By: #### C /UR #### [facility] [address] [place] [facility] [address] [place] #### CUA2 #### [facility] [address] [place] RBC LM.HPF (Urine sed) [#/Area] /[HPF] Abnormal 0-2 [facility] Comment on above: Result Comment: . Performed By: #### C /UR #### [facility] [address] [place] [facility] [address] [place] #### CUA2 #### [facility] [address] [place] Specific [place],Urine 1.014 Normal 1.005 - 1.030 [facility] Comment on above: Result Comment: . Performed By: #### C /UR #### [facility] [address] [facility] [facility] [address] [facility] #### CUA2 #### [facility] [address] [facility] Squamous Epithelial 6 - 10 Abnormal 3-5 [facility] Comment on above: Result Comment: . Performed By: #### C /UR #### [facility] [address] [facility] [facility] [address] [facility] #### CUA2 #### [facility] [address] [facility], [place] Urobilinogen,Urine 3 mg/dL Abnormal Normal (0-1) [facility] Comment on above: Result Comment: . Performed By: #### C /UR #### [facility] [address] [facility] [facility] [address] [facility], [place] #### CUA2 #### [facility] [address] [facility], [place] WBC LM.HPF (Urine sed) [#/Area] /[HPF] Abnormal 0-5 [facility] Comment on above: Result Comment: . Performed By: #### C /UR #### [facility] [address] [facility] [facility] [address] [facility] #### CUA2 #### [facility] [address] [facility], [place] White Blood Cell Clump Many Abnormal Negative [facility] Comment on above: Result Comment: . Performed By: #### C /UR #### [facility] [address] [facility] [facility] [address] [facility] #### CUA2 #### [facility] [place] [address] ED Provider Noteon 0 ED Provider Note ---- -------- Attestation signed by Erika Hayes DO at 02/05/2020 8:33 PM I did not individually evaluate this patient. While I was not directly involved in patient care, I was available in the emergency department for assistance. -------- [facility] Patient: Brianne Smith : 1995 Date of Evaluation: 02/05/2020 ED PATTI Provider: KRANTHI Bee Chief Complaint Chief Complaint Patient presents with ? Urinary Retention Pt having burning w/urination when woke up this am. Came in to get ATB. [place]ER[place] I was wearing a n95 mask for [...] otherwise acutely negative except as in the [place]. Past History No past medical history on [...] file Gets together: Not on file Attends jewish service: Not on file Active member of [...] Urine 6.0 5.0 - 8.0 NA Specific [place], Urine 1.014 1.005 - 1.030 NA Occult [...] onward) Start Ordered Status Ordering Provider 02/05/20 0900 02/05/20 0858 phenazopyridine (PYRIDIUM) tablet 200 mg ONCE Ordered ANAT VALLADARES 02/05/20 0900 02/05/20 0858 nitrofurantoin (macrocrystal-monohydrat e) (MACROBID) capsule 100 mg ONCE Ordered ANAT [...] 02/05/20 1409 KRANTHI Bee 02/05/20 1410 Normal [facility] Urinalysison 02-05-2020 Appearance (U) Turbid Abnormal Clear NA [place], [place] Comment on above: . Bacteria, UA Few Abnormal Negative /[HPF] [place], [place] Comment on above: . Bilirubin Urine 1 mg/dL Abnormal Negative [place] Comment on above: . Color (U) Dark-Yellow Abnormal Lt. Yellow NA [place], [place] Comment on above: . Glucose, Ur Normal Normal (<70) mg/dL [place], [place] Comment on above: . Hyaline Casts, UA Negative Negative /[LPF] [place], [place] Comment on above: . Interpretation and review of laboratory results Abnormal [place], [place] Ketones Ql (U) Negative Negative mg/dL [place] Comment on above: . LEUKOCYTES, UA 500 Abnormal Negative Henok/uL [place], [place] Comment on above: . Mucous Threads Few Negative /[LPF] [place] Comment on above: . Nitrite, Urine Positive Abnormal Negative [place], [place] Comment on above: . Non-Squamous Epithelial 1 /[HPF] Abnormal Negative [place] Comment on above: . Occult Blood,Urine >1.0 Abnormal Negative mg/dL [place], [place] Comment on above: . pH (U) 6.0 [pH] [place] Comment on above: . Protein (U) [Mass/Vol] 100 mg/dL Abnormal Negative [place] Comment on above: . RBC (U) [#/Vol] /uL Abnormal 0 - 2 /[HPF] [place] Comment on above: . Specific [place], Urine 1.014 [place], [place] Comment on above: . Squam Epithel, UA 6-10 Abnormal 3 - 5 /[HPF] [place] Comment on above: . Urobilinogen, Urine 3 mg/dL Abnormal Normal (0-1) [place] Comment on above: . WBC Clumps, Urine Many Abnormal Negative /[HPF] [place], [place] Comment on above: . WBC, UA >100 Abnormal 0 - 5 /[HPF] [place], [place] Comment on above: . Test Performed by [facility], [address] [place] [id number] [place], [place] Vital Signs Date Time Vital Sign Value Performing Clinician Facility 07-01-2024 11:01-0500 Body mass index (BMI) [Ratio] 39.94 kg/m2 Randi CRISOSTOMO Work Phone: [facility] 07-01-2024 11:01-0500 Body weight 95.89 kg Randi CRISOSTOMO Work Phone: [facility] 07-01-2024 11:01-0500 Diastolic blood pressure 82 mm[Hg] Randi CRISOSTOMO Work Phone: [facility] 07-01-2024 11:01-0500 Systolic blood pressure 122 mm[Hg] Randi CRISOSTOMO Work Phone: [facility] 05-31-2022 03:06-0500 Body weight 79.[address] MINDI PALAFOX . [facility] Comment on above: Performed By: #### AFPMAT #### [facility] [address] [place] [address] Dr. Gita Graham 02-08-2022 10:56-0400 Body height 154.9 cm Renata Jurado DO Work Phone: [facility] 02-08-2022 10:56-0400 Body weight 79.38 kg Renata Mihalik DO Work Phone: [facility] 02-08-2022 10:56-0400 Diastolic blood pressure 80 mm[Hg] Renata Mihalik DO Work Phone: [facility] 02-08-2022 10:56-0400 Systolic blood pressure 122 mm[Hg] Renata Mihalik DO Work Phone: [facility] 11-01-2021 08:07-0400 Body height 154.9 cm La Zuponcic DO Work Phone: [facility] 11-01-2021 08:07-0400 Body weight 75.03 kg La Zuponcic DO Work Phone: [facility] 11-01-2021 08:07-0400 Diastolic blood pressure 84 mm[Hg] La Zuponcic DO Work Phone: [facility] 11-01-2021 08:07-0400 Systolic blood pressure 126 mm[Hg] La Zuponcic DO Work Phone: [facility] 08-10-2021 11:45-0500 Body height 154.9 cm Renata Mihalik DO Work Phone: [facility] 08-10-2021 11:45-0500 Body weight 75.75 kg Renata Mihalik DO Work Phone: [facility] 08-10-2021 11:45-0500 Diastolic blood pressure 78 mm[Hg] Renata Mihalik DO Work Phone: [facility] 08-10-2021 11:45-0500 Systolic blood pressure 116 mm[Hg] Renata Mihalik DO Work Phone: [facility] 08-17-2020 16:48-0400 Pulse (Heart Rate) 89 /min Abi Gagnon [facility] Work Phone: 08-17-2020 16:48-0400 Pulse Oximetry 98 % Abi [employer] Work Phone: 08-17-2020 16:48-0400 Respiratory Rate 16 /min Abi Song [facility] Work Phone: 08-17-2020 14:37-0400 BP Diastolic 84 mm[Hg] Abi SHEPARD Work Phone: 08-17-2020 14:37-0400 BP Systolic 120 mm[Hg] Abi SHEPARD Work Phone: 08-17-2020 09:47-0400 BMI (Body Mass Index) 32.5 kg/m2 Abi SHEPARD Work Phone: 08-17-2020 09:47-0400 Body Temperature 98.4 [degF] Abi SHEPARD Work Phone: 08-17-2020 09:47-0400 Body weight 78.02 kg Abi SHEPARD Work Phone: 08-17-2020 09:47-0400 Height 154.9 cm Abi SHEPARD Work Phone: 02-05-2020 08:37-0400 Body Temperature 98.2 [degF] [facility] [place] 02-05-2020 08:37-0400 BP Diastolic 77 mm[Hg] [employer] [facility] [place] 02-05-2020 08:37-0400 BP Systolic 124 mm[Hg] [employer] [place] 02-05-2020 08:37-0400 Pulse (Heart Rate) 82 /min [employer] [place] 02-05-2020 08:37-0400 Pulse Oximetry 100 % [employer] [place] 02-05-2020 08:37-0400 Respiratory Rate 16 /min [employer] Encounters Encounter Date Encounter Type Care Provider Facility Start: 07-01-2024 End: 07-01-2024 Bamboo flowsheet Randi CRISOSTOMO Work Phone: [facility] Start: 07-01-2024 End: 07-01-2024 Bamboo flowsheet Randi CRISOSTOMO Work Phone: [facility] Start: 07-01-2024 End: 07-01-2024 Patient encounter procedure Randi CRISOSTOMO Work Phone: [facility] Start: 07-01-2024 End: 07-01-2024 Periodic preventive med est patient 18-39 yrs Randi CRISOSTOMO Work Phone: [facility] Comment on above: Well woman exam with routine gynecological exam; STD exposure Start: 11-04-2023 End: 11-04-2023 ambulatory RANDI ASTORGA Not Available Start: 05-15-2023 End: 05-15-2023 ambulatory RANDI ASTORGA Not Available Start: 10-02-2022 End: 10-06-2022 Evaluation and management of inpatient DR MINDI PALAFOX . Facility:[facility] Start: 10-01-2022 End: 10-01-[address] ROSA [...] Facility:[facility] Start: 07-25-2022 End: 07-26-2022 [facility] Start: 07-25-2022 End: 07-25-2022 Subsequent hospital visit by physician Kristen Silveira MD Work Phone: [facility] Laboratory Start: 07-21-2022 End: 07-22-[address] MINDI PALAFOX . Facility:[facility] Start: 07-03-2022 End: 07-04-[address] ELMO OGETZ Facility:[facility] Start: 06-05-2022 End: 06-06-[address] MINDI PALAFOX . Facility:[facility] Start: 05-28-2022 End: 05-29-[address] MINDI PALAFOX . Facility:[facility] Start: 04-07-2022 End: 04-08-[address] MINDI PALAFOX . Facility: Start: 03-22-2022 End: 03-23-[address] ELMO GOETZ Facility: Start: 03-08-2022 End: 03-08-[address] MINDI PALAFOX . Facility: Start: 03-08-2022 End: 03-09-[address] MINDI PALAFOX . Facility: Start: 03-01-2022 Telephone encounter Renata boucher DO Work Phone: [facility] Comment on above: Results; Appointment Start: 03-01-2022 End: 03-02-2022 ambulatory RENATA JURADO Facility:[facility] Start: 02-08-2022 End: 02-08-2022 ambulatory RENATA JURADO Facility:[facility] Start: 02-08-2022 End: 02-08-2022 Patient encounter procedure Renata Jurado DO Work Phone: [facility] Comment on above: PCOS (polycystic ova jim syndrome) (Primary Dx); Trichomoniasis Start: 11-07-2021 Telephone encounter La Linkcic DO Work Phone: [facility] Comment on above: Results Start: 11-01-2021 End: 11-01-2021 ambulatory LA ZUPONCIC Facility:[facility] Start: 11-01-2021 End: 11-01-2021 Patient encounter procedure La Zuponcic DO Work Phone: [facility] Obstetric[facility] & Gynecology Comment on above: Vulvar itching (Prim cori Dx) Start: 09-12-2021 Telephone encounter Renata boucher DO Work Phone: [facility] Comment on above: Orders Start: 08-10-2021 End: 08-10-2021 ambulatory RENATA JURADO Facility:[facility] Start: 08-10-2021 End: 08-10-2021 Patient encounter procedure Ultrasound Arm[employer] Work Phone: [facility] Comment on above: Irregular menses PCOS (polycystic ova jim syndrome) (Primary Dx) Start: 07-10-2021 End: 07-11-2021 ambulatory RENATA JURADO Facility:[facility] Start: 08-17-2020 End: 08-17-2020 Emergency department patient visit Abi Gagnon [facility] Emergency Dept Comment on above: Nausea and vomiting, intractability of vomiting not specified, unspecified vomiting type (Primary Dx); Hypokalemia Start: 06-15-2020 End: 06-15-2020 Subsequent hospital visit by physician Frida Smith Work Phone: [facility] USE ONLY Start: 06-09-2020 End: 06-09-2020 Subsequent hospital visit by physician Manju Hunter Work Phone: [facility] USE [facility] Start: 04-14-2020 End: 04-14-2020 Subsequent hospital visit by physician Frida Smith Work Phone: [facility] Start: 02-05-2020 End: 02-05-2020 Emergency department patient visit [facility] Emergency Dept Comment on above: Acute cystitis with hematuria (Primary Dx); Burning with urination Procedures Date Procedure Procedure Detail Performing Clinician Start: 05-15-2023 Cytp cerv/vag auto t hin layer prep mnl screen Randi CRISOSTOMO Work Phone: Start: 10-03-2022 Delivery of Products of Conception, [...] PALAFOX . Start: 03-01-2022 Antibody screen RENATA JURADO Comment on above: Order Comment: Speci men Type: BLOOD SPECIMENOrdering Facility: [facility] Address: [address] [place] [phone] Performed By: #### T SCR ####[facility] BLOOD BANKCLIA [id number] [place] [address] [facility] Start: 08-17-2020 Potassium serum plas ma/whole blood Fay Duongshahab Work Phone: Start: 08-17-2020 ADD ON LAB TEST Yessy coreas Arnavsherrillshahab Work Phone: Start: 08-17-2020 Urnls dip stick/tabl et rgnt auto w/o microscopy Fay Prachi Work Phone: Start: 08-17-2020 Assay of lipase Yessy coreas Prachi Work Phone: Start: 08-17-2020 Assay of magnesium Estella erin Prachi Work Phone: Start: 08-17-2020 Blood count complete auto&auto difrntl wbc Fay Arnavsherrillshahab Work Phone: Start: 08-17-2020 Comprehensive metabo lic panel Fay Prachi Work Phone: Start: 02-05-2020 Urnls dip stick/tabl et rgnt auto w/o microscopy Anat Jennifer Work Phone: Plan of Treatment Date Care Activity Detail Author Start: 07-06-2025 End: 07-06-2025 Patient encounter procedure 07/06/2025 11:00 AM EST Office Visit [facility] [address] [place] [id number] Randi Astorga PA [address] [place] [place] [address] [facility] Start: 07-01-2024 End: 07-01-2024 Patient encounter procedure 07/01/2024 11:00 AM EST Office Visit [facility] [address] [place] [phone] Randi Astorga, PA [address] [place], [place] [id number] Arrived [facility] Comment on above: Arrived Start: 09-05-2022 End: 09-05-2022 Patient encounter procedure 09/05/2022 Routine Perinatology [facility] Start: 02-08-2022 End: 04-10-2022 T VAGINALIS AMPLIFICATION T VAGINALIS AMPLIFICATION Lab Routine Trichomoniasis Expected: 02/08/2022, Expires: 04/10/2022 [facility] Work Phone: Comment on above: Expected: 02/08/2022 , Expires: 04/10/2022 Start: 02-01-2022 Influenza vaccination C [facility] Start: 01-01-2022 Influenza vaccination Flu vaccine (# 1) [facility] Start: 09-12-2021 End: 11-12-2021 PROGESTERONE BLD PROGESTERONE BLD Lab Routine PCOS (polycystic ovarian syndrome) Expected: 09/12/2021, Expires: 11/12/2021 [facility] Work Phone: Comment on above: Expected: 09/12/2021 , Expires: 11/12/2021 Start: 06-03-2021 DEPRESSION ASSESSMENT DEPRESSION ASS ESSMENT [facility] Start: 02-01-2021 Influenza vaccination INFLUENZA (#1) [facility] Start: 06-15-2020 End: 06-15-2020 Virtual Visit 06/15/2020 Virtual Visit [facility] Nabeel Frey DO [address], [address] [place] [address] [phone] [facility] Start: 06-14-2020 End: 06-14-2020 Virtual Visit 06/14/2020 Virtual Visit [facility] Abi Gagnon MD [address] [place] [address] [phone] [facility] Start: 03-16-2020 DTaP/Tdap/Td vaccine (7 - Td or Tdap) DTaP/Tdap/Td vaccine (7 - Td or Tdap) [facility] Start: 02-02-2020 Influenza vaccination Flu vaccine (# 1) [facility], [place] Start: 2017 PAP TESTING PAP TESTING [facility] Start: 2017 Screening for malign ant neoplasm of cervix [facility] Start: 2015 DTaP/Tdap/Td vaccine (1 - Tdap) DTaP/Tdap/Td vaccine (1 - Tdap) [place], [place] Start: 2015 Urine microalbumin profile DTAP,TDAP,TD (1 - Tdap) [facility] Start: 2014 HEPATITIS C SCREENING [facility] Start: 2014 Hepatitis C screening Hepatitis C muscogeen [facility] Start: 2014 HIV SCREENING HIV SCREENING [facility] Start: 2012 Screening for Chlamy stas trachomatis Chlamydia screen [place], [place] Start: 2011 HIV screening HIV screen [facility] Start: 2010 PEDS TO ADULT TRANSI TION ANNUAL ASSESSMENT PEDS TO ADULT TRANSITION ANNUAL ASSESSMENT [facility] Start: 2008 Adult depression screening assessment DEPRESSION SCREENING [facility] Start: 2008 Depression Screen Depression Screen [facility] Start: 2008 PEDS TO ADULT TRANSI TION INITIAL DISCUSSION PEDS TO ADULT TRANSITION INITIAL DISCUSSION [facility] Start: 2007 HPV vaccine (1 - 2-d ose series) HPV vaccine (1 - 2-dose series) [facility] Start: 2001 COVID-19 VACCINE (#1) COVID-19 VACCI NE (#1) [facility] Start: 2001 COVID-19 VACCINE (1) COVID-19 VACCIN E (1) [facility] Start: 1997 Varicella vaccine (1 of 2 - 2-dose childhood series) Varicella vaccine (1 of 2 - 2-dose childhood series) [place], [place] Start: 1996 COVID-19 VACCINE (#1) COVID-19 VACCI NE (#1) [facility] Start: 1996 HEPATITIS B (1 of 3 - 3-dose series) HEPATITIS B (1 of 3 - 3-dose series) [facility] Start: 1996 Hepatitis C screening Hepatitis C [place], [place] End: 02-05-2020 Add On Lab Test Add On Lab Test Lab STAT One Time for 1 Occurrences starting 02/05/2020 until 02/05/2020 [place], [place] Comment on above: One Time for 1 Occur rences starting 02/05/2020 until 02/05/2020 CHLAMYDIA TRACHOMATI S (GENITO/STI) CHLAMYDIA TRACHOMATIS (GENITO/STI) Lab Routine STD exposure Ordered: 07/01/2024 [facility] [employer] Comment on above: Ordered: 07/01/2024 Chlamydia trachomatis+Neisseria gonorrhoeae DNA [Presence] in Unspecified specimen by PADMINI with probe detection GC/CHLAMYDIA DNA DET Lab Routine Vulvar itching Ordered: 11/01/2021 [facility] Work Phone: Comment on above: Ordered: 11/01/2021 End: 07-25-2022 [facility] [employer] Work Phone: Comment on above: Once for 1 Occurrenc es starting 07/25/2022 until 07/25/2022 Cytology Cervical or vaginal smear or scraping study Pap Smear Pathology and Cytology Routine Well woman exam with routine gynecological exam Ordered: 07/01/2024 [employer] Work Phone: Comment on above: Ordered: 07/01/2024 End: 07-25-2022 Cytomegalovirus Antibody, IgG [employer] Phone: Comment on above: Once for 1 Occurrenc es starting 07/25/2022 until 07/25/2022 End: 07-25-2022 Cytomegalovirus Antibody, IgM [employer] Phone: Comment on above: Once for 1 Occurrenc es starting 07/25/2022 until 07/25/2022 FUNGAL SMEAR FUNGAL SMEAR Microbiology Routine Vulvar itching Ordered: 11/01/2021 [facility] Work Phone: Comment on above: Ordered: 11/01/2021 Neisseria gonorrhoea e DNA [Presence] in Unspecified specimen by PADMINI with probe detection Neisseria gonorrhea DNA probe, direct Lab Routine STD exposure Ordered: 07/01/2024 [facility] [employer] Comment on above: Ordered: 07/01/2024 End: 07-25-2022 Parvovirus B19 Antibody, IgG and IgM [employer] Work Phone: Comment on above: Once for 1 Occurrenc es starting 07/25/2022 until 07/25/2022 RAPID BACT VAGINOSIS (AK) RAPID BACT VAGINOSIS (AK) Lab Routine Vulvar itching Ordered: 11/01/2021 [facility] Work Phone: Comment on above: Ordered: 11/01/2021 SURESWAB(R) ADVANCED VAGINITIS PLUS, TMA SURESWAB(R) ADVANCED VAGINITIS PLUS, TMA Pathology and Cytology Routine STD exposure Ordered: 07/01/2024 [facility] Comment on above: Ordered: 07/01/2024 End: 07-25-2022 Toxoplasma Gondii Antibody, IgG BON [employer] Phone: Comment on above: Once for 1 Occurrenc es starting 07/25/2022 until 07/25/2022 End: 07-25-2022 Toxoplasma Gondii Antibody, IgM [employer] Phone: Comment on above: Once for 1 Occurrenc es starting 07/25/2022 until 07/25/2022 Trichomonas vaginali s Ag [Presence] in Genital specimen by Immunoassay TRICHOMONAS PREP/ANTIGEN Microbiology Routine Vulvar itching Ordered: 11/01/2021 [facility] Work Phone: Comment on above: Ordered: 11/01/2021 Urine test visual color cmprsn meths HCG QUAL UR B/O Lab Routine PCOS (polycystic ovarian syndrome) Ordered: 02/08/2022 [facility] Work Phone: Comment on above: Ordered: 02/08/2022 [facility] Payers Date Payer Category Payer Medicaid [employer] [place] [id number] 2019-Present [phone] [address] [address] [place] [address] Medicaid [id number] 2019 Medicaid [employer] [place] [id number] 2019-Present [phone] [address] [address] [place] [address] Medicaid [id number] 1996 Unknown [id number] 1996 Unknown [id number] [id number] 1996 Unknown [id number] 2.16.840.1.948775.3.579.2.593 1996 Unknown [id number] 2.16.840.1.306227.3.579.2.593 1996 Unknown [id number] 2.16.840.1.863193.3.579.2.593 1996 Unknown [id number] 2.16.840.1.465788.3.579.2.593 1996 Unknown [id number] 2.16.840.1.459519.3.579.2.593 1996 Unknown [id number] 2.16.840.1.389942.3.579.2.593 1996 Unknown [id number] 2.16.840.1.116424.3.579.2.593 1996 Unknown [id number] 2.16.840.1.853932.3.579.2.593 1996 Unknown [id number] 2.16.840.1.769565.3.579.2.593 1996 Unknown [id number] 2.16.840.1.085563.3.579.2.593 1996 Unknown [id number] 2.16.840.1.391676.3.579.2.593 1996 Unknown [id number] 2.16.840.1.990731.3.579.2.593 1996 Unknown [id number] 2.16.840.1.553705.3.579.2.593 1996 Unknown [id number] 2.16.840.1.134804.3.579.2.593 1996 Unknown [id number] 2.16.840.1.120951.3.579.2.1259 1996 Unknown [id number] 2.16.840.1.689159.3.579.2.1259 1959 Medicaid [id number] [id number]. [id number] Unknown [id number] Social History Date Type Detail Facility [facility] [place] [place] Start: 1996 Sex Assigned At Not on file [place] Start: 07-31-2021 End: 03-01-2022 Exposure to SARS-CoV-2 (event) Not sure [place] Start: 04-14-2020 End: 08-17-2020 Tobacco smoking status NHIS Never smoker [facility] Start: 04-14-2020 End: 07-25-2022 Alcohol intake Current drinker of alcohol (finding) [place] Start: 04-14-2020 History SDOH Alcohol Frequency 2 [place] Start: 08-17-2020 End: 02-08-2022 Tobacco use and exposure Never used [employer] Work Phone: Start: 08-17-2020 Alcohol Comment on holidays an d birthdays only [employer] Work Phone: Start: 10-21-2021 End: 10-31-2021 Exposure to SARS-CoV-2 (event) Unable to assess [facility] Start: 01-31-2022 KARISHMA Marin [facility] [employer] Work Phone: Start: 11-15-2022 [facility] History of tobacco use Cigarette Smoker [facility] Start: 06-23-2024 End: 07-01-2024 Alcoholic beverage intake Lifetime non-drinker (finding) [facility] Start: 11-04-2023 History of Social function [facility] Start: 11-04-2023 Tobacco use panel [facility] Start: 11-15-2022 Alcohol Comment Caffeine intake: rar e [facility] Start: 1996 Sex assigned at Female N [facility] Start: 11-13-2022 Gender identity Identifies as female gender (finding) [facility] Clinical Notes 07-10-2021 to 07-01-2024 KRANTHI Lainez - 07/01/2024 11:00 AM ESTTelephone Encounter - Poly Stapleton RN - 03/01/2022 12:53 PM EDEfraín Jurado DO - 02/08/2022 10:45 AM EDTPatient InstructionsPatient Instructions Note Date & Type Note Facility 07-01-2024 History of Present illness Narrative Reason for Appointment: Patient ID: Brianne Smith is a 29 y.o. female who presents for [facility] Women Visit Patient presents today for Annual Exam. MEDICATIONS Current Outpatient Medications Medication Instructions norethindrone-ethinyl estradiol (06/22) 1-20 MG-MCG tablet 1 tablet, Oral, Daily ALLERGIES No Known Allergies PROBLEMS Active Ambulatory Problems Diagnosis Date Noted BV (bacterial vaginosis) 05/06/2024 Resolved Ambulatory Problems Diagnosis Date Noted No Resolved Ambulatory Problems Past Medical History: Diagnosis Date Bacterial vaginosis HISTORY PAST MEDICAL HISTORY SOCIAL HISTORY Past Medical History: Diagnosis Date Bacterial vaginosis Social History Tobacco Use Smoking status: Every Day Types: Cigarettes Smokeless tobacco: Not on file Substance Use Topics Alcohol use: Never Comment: Caffeine intake: rare Drug use: Never FAMILY HISTORY No family history on file. SURGICAL HISTORY History reviewed. No pertinent surgical history. REVIEW OF SYSTEMS Review of Systems: Review of Systems Constitutional: Negative. HENT: Negative. Eyes: Negative. Respiratory: Negative. Cardiovascular: Negative. Gastrointestinal: Negative. Genitourinary: Negative. Musculoskeletal: Negative. Skin: Negative. Neurological: Negative. All other systems reviewed and are negative. Hematological: Negative. Endocrine: Negative. Allergic/Immunologic: Negative. OBJECTIVE Objective: Physical Exam Constitutional: Appearance: Normal appearance. She is well-developed. Genitourinary: Vulva normal. Right Adnexa: not tender and no mass present. Left Adnexa: not tender and no mass present. No cervical discharge. Breasts: Breasts are soft. Right: Normal. Left: Normal. HENT: Head: Normocephalic. Nose: Nose normal. Mouth/Throat: Mouth: Mucous membranes are moist. Cardiovascular: Rate and Rhythm: Normal rate and regular rhythm. Pulmonary: Effort: Pulmonary effort is normal. Breath sounds: Normal breath sounds. Abdominal: General: Bowel sounds are normal. There is no distension. Palpations: Abdomen is soft. Tenderness: There is no abdominal tenderness. There is no guarding or rebound. Musculoskeletal: General: No swelling. Normal range of motion. Cervical back: Normal range of motion. Right lower leg: No edema. Left lower leg: No edema. Neurological: General: No focal deficit present. Mental Status: She is alert and oriented to person, place, and time. Skin: General: Skin is warm and dry. Psychiatric: Mood and Affect: Mood normal. Behavior: Behavior normal. Vitals and nursing note reviewed. Exam conducted with a dope pourer present. Vitals: Estimated body mass index is 39.94 kg/m as calculated from the following: Height as of 23: 5' 1 . Weight as of this encounter: 211 lb 6.4 oz. BP: 122/82 Patient's last menstrual period was 06/22/2024 (approximate). ASSESSMENT & PLAN ICD-10-CM 1. Well woman exam with routine gynecological exam Z01.419 Pap Smear 2. STD exposure Z20.2 SURESWAB(R) ADVANCED VAGINITIS PLUS, TMA CHLAMYDIA TRACHOMATIS (GENITO/STI) Neisseria gonorrhea DNA probe, direct Annual Exam: Patient presents today for an annual exam. Patient states she is doing well and has no complaints. Pap was obtained without difficulty. Patient requested to have cultures obtained for STI screening. Cultures obtained without difficulty. Orders Placed This Encounter Procedures CHLAMYDIA TRACHOMATIS (GENITO/STI) Neisseria gonorrhea DNA probe, direct Follow Up: Patient is to return in one year for annual unless needed otherwise. Documented by Frannie Schulz LPN on behalf of: KRANTHI Lainez documented in this encounter [facility] 03-01-2022 Miscellaneous Notes Aware of results and transferred to [facility]. Poly Stapleton RN HC,031 (6-7 wk) LMP:8.17.2021 documented in this encounter [facility] 02-08-2022 Note HNO ID: [id number] Author: Renata Jurado, DO Service: ? Author Type: Physician Type: [...] palpitations GI: No nausea, vomiting, or diarrhea NIPPING MACHINE OPERATOR: Positive for oligomenorrhea. Negative for abnormal vaginal [...] direction and in the presence of Renata Jurado DO Electronically Signed: Hunter Greene. February 08, 2022 11:27 AM. I agree with the Chief Complaint, ROS, and Past Histories independently gathered by the clinical accounting support specialist and the remaining scribed note accurately describes my personal service to the patient. SIGNATURE: Renata Jurado DO DATE of SERVICE: 02/08/22 TIME of SERVICE: 11:27 AM [facility] 02-08-2022 History of Present illness Narrative [...] palpitations GI: No nausea, vomiting, or diarrhea NIPPING MACHINE OPERATOR: Positive for oligomenorrhea. Negative for abnormal vaginal [...] direction and in the presence of Renata Jurado DO Electronically Signed: Hunter Greene. February 08, 2022 11:27 AM. I agree with the Chief Complaint, ROS, and Past Histories independently gathered by the clinical accounting support specialist and the remaining scribed note accurately describes my personal service to the patient. SIGNATURE: Renata Jurado DO DATE of SERVICE: 02/08/22 TIME of SERVICE: 11:27 AM documented in this encounter [facility] 11-07-2021 Miscellaneous Notes Patient notified of results/ [...] Gladys Valdovinos LPN documented in this encounter [facility] 11-01-2021 Note HNO ID: [id number] Author: La Holm, DO Service: ? Author [...] DNA DET La Holm DO [facility] 11-01-2021 Miscellaneous Notes Addended by: LA HOLM on: 11/01/2021 08:47 AM Modules accepted: Orders documented in this encounter [facility] 11-01-2021 Instructions La Holm DO - 11/01/2021 8:46 AM EDT Please call the office before going to the hospital. If you are , go to the ER at the [facility] main [facility]. Do not go to the outlying ER s ([facility] or [place]). If you need to go to an ER and cannot or will not go downtown, please use one of [facility] ER s (not [facility] or [facility]). documented in this encounter [facility] 11-01-2021 History of Present illness Narrative SERVICE [...] La Holm DO documented in this encounter [facility] 09-12-2021 Miscellaneous Notes Progesterone order in. Will need drawn on day 3 of next menses. Thanks. Renata Jurado DO Patient calling nurse triage line stating she was told by her provider back in august's visit to call when she starts her menses to get lab work done to see if she ovulates. Patient started menses on Saturday09/06/21. Please place order and when she should get her labs drawn. Gladys Valdovinos LPN documented in this encounter [facility] 08-10-2021 Note HNO ID: [id number] Author: Renata Jurado, DO Service: ? Author Type: Physician Type: [...] No history of dysuria, frequency or incontinence NIPPING MACHINE OPERATOR: Positive for irregular menses MUSCULOSKELETAL: Negative for [...] PCOS follow up if not already Renata Jurado DO [facility] 08-10-2021 Instructions Renata Jurado DO - 08/10/2021 12:07 PM EST Polycystic [...] is provided by your physician and the [facility] Journal of Medicine and the [facility] [email or web address]. This information has not been designed to replace a physician's medical assessment and medical judgment. Copyright 1994- 2012 The [facility]. All rights reserved This information is provided by the [facility] and is not intended to replace the medical advice of your doctor or health care provider. Please consult your health care provider for advice about a specific medical condition. For additional health information, please contact the Center for Consumer Health Information at the [facility] or toll-free extension [phone]. If you prefer, you may visit [email or web address] or [email or web address]. This document was last reviewed on: 2009 index#[id number] documented in this encounter [facility] 08-10-2021 History of Present illness Narrative SERVICE [...] No history of dysuria, frequency or incontinence NIPPING MACHINE OPERATOR: Positive for irregular menses MUSCULOSKELETAL: Negative for [...] PCOS follow up if not already Renata Jurado DO documented in this encounter [facility] 07-10-2021 Note HNO ID: [id number] Author: Renata Jurado DO Service: ? Author Type: Physician Type: [...] No history of dysuria, frequency or incontinence NIPPING MACHINE OPERATOR: irregular menses MUSCULOSKELETAL: Negative for joint pain [...] for TVUS and lab follow up Renata Jurado DO [facility] Evaluation note Diagnosis Irregular menses Irregular menstrual cycle [facility] Diagnosis PCOS (polycystic ovarian syndrome)- Primary Polycystic ovaries [facility] Diagnosis Vulvar itching- Primary Pruritus of genital organs documented [facility] this [facility]* Diagnosis PCOS (polycystic ovarian syndrome)- Primary Polycystic ovaries Trichomoniasis Trichomoniasis, unspecified documented [facility] this encounter [facility]* Diagnosis Well woman exam with routine gynecological exam Routine gynecological examination STD exposure documented in this encounter [facility] Reason for Referral Status Reason Specialty Diagnoses / Procedures Referred By Contact Referred To Contact [facility] Required Family Medicine Diagnoses Acute cystitis with hematuria Burning with urination Anat Valladares PA [address] [place] [address] [address] Scheduling Instructions [address] [address] Fx: [phone] Status Reason Specialty Diagnoses / Procedures Referred By Contact Referred To Contact [facility] Required Gastroenterology Diagnoses Nausea and vomiting, intractability of vomiting not specified, unspecified vomiting type Fay Velarde, MISHEL - AGRICULTURAL RESEARCH ENGINEER [address] [place] [address] [facility] [address] [place] [address] Scheduling Instructions [facility] [address], [address] [place]. [address] Fax: Discharge Instructions * Instructions* Anat Valladares [...] Everywhere. * UTI (Urinary Tract Infection): Female (Slovenian) documented in this encounter* Attachments The following attachments cannot be sent through Care Everywhere. * Hypokalemia (Slovenian) * Nausea and Vomiting (Slovenian) documented in this encounter Assessments Diagnosis Acute [...] 6 mon ths Reason Comments Results Appointment Reason Comments Well Women Visit Ordered Prescriptions (unrec ognized section and content) Prescription Sig Dispensed Refills Start Date End Da te ondansetron (ZOFRAN) 4 MG tablet Take 2 tablets by mouth daily as needed for Nausea or Vomiting 12 tablet 0 08/17/2020 INFORMATION SOURCE (unrecogn ized section and content) DATE CREATED AUTHOR 08/22/2020 [facility] DATE CREATED AUTHOR AUTHOR'S ORGANIZ ATION 03/05/2022 [facility] DATE CREATED AUTHOR AUTHOR'S ORGANIZ ATION 09/22/2022 [facility] DATE CREATED AUTHOR AUTHOR'S ORGANIZ ATION 10/13/2022 [facility] DATE CREATED AUTHOR AUTHOR'S ORGANIZ ATION 11/04/2023 [facility] EPIC Source Comments (unrecognize d section and content) In the event this informatio n is protected by the Federal Confidentiality of Alcohol and Drug Abuse Patient Records regulations: The Federal rules restrict any use of the information to criminally investigate or prosecute any alcohol or drug abuse patient.[facility] the event this information is protected by the Federal Confidentiality of Alcohol and Drug Abuse Patient Records regulations: The Federal rules restrict any use of the information to criminally investigate or prosecute any alcohol or drug abuse patient.[facility] the event this information is protected by the Federal Confidentiality of Alcohol and Drug Abuse Patient Records regulations: The Federal rules restrict any use of the information to criminally investigate or prosecute any alcohol or drug abuse patient.[facility] the event this information is protected by the Federal Confidentiality of Alcohol and Drug Abuse Patient Records regulations: The Federal rules restrict any use of the information to criminally investigate or prosecute any alcohol or drug abuse patient.[facility] the event this information is protected by the Federal Confidentiality of Alcohol and Drug Abuse Patient Records regulations: The Federal rules restrict any use of the information to criminally investigate or prosecute any alcohol or drug abuse patient.[facility] the event this information is protected by the Federal Confidentiality of Alcohol and Drug Abuse Patient Records regulations: The Federal rules restrict any use of the information to criminally investigate or prosecute any alcohol or drug abuse patient.[facility] the event this information is protected by the Federal Confidentiality of Alcohol and Drug Abuse Patient Records regulations: The Federal rules restrict any use of the information to criminally investigate or prosecute any alcohol or drug abuse patient.[facility] Care Teams (unrecognized sec tion and content) Diesel Power Shovel Operator Relationship Specialty Start Date End Date Kristen Silveira MD PCP - General Family Medicine 12/05/21 [...] BE BASED ON THE PRIMARY CLINICAL RECORDS. [employer] provides no warranty or guarantee of the accuracy or completeness of information in this document.
[2024-07-07 14:08] LABS: Age Gdln ACOG Testing Note (.); IGP, rfx Aptima HPV ASCU Note (.)
== END 2024-07-01 21:20 | disposition home or self-care (01) ==
LOC: LAB 21:19
PROVIDERS: Visit Provider Physician Assistant
DX: Z01.419 Encounter for gynecological examination (general) (routine) without abnormal findings (principal)
CPT/HCPCS: 88175